=== PATIENT | male | born 1935 | race Caucasian/White ===

== ENCOUNTER 2016-07-17 04:37 | Inpatient (IN) | payer MEDICARE, OTHER ==
[2016-07-17 05:05] LABS: Hematocrit 41 % (42-52); Mean Corpuscular HGB Conc 32 g/dl (31-36); Mean Corpuscular Hemoglobin 28 pg (27-31); Mean Corpuscular Volume 87 fL (80-94); Mean Platelet Volume 9 um3 (7.4-10.4); Red Blood Count 4.67 10^6/ul (4.0-5.4); Red Cell Distribution Width 16 % (10.5-15); White Blood Count 9.4 10^3/ul (3.5-10.8)
--- NOTE | 2016-07-17 05:17 | HP ---
H&P (Free Text) History and Physical: PCP: Physician practicing with JOSE J Pablo MD Date/Time of Evaluation: 07/17/2016 0520 CC: bright red blood per rectum HPI: Mr Yuen is a 80YO male HX CAD/4vCABG in 03/2016 who awoke this AM, got up to use the restroom and had large bright red blood x2 prompting him to present for evaluation. He denies associated symptoms and alleviating or exacerbating factors; specifically no chest pain, SOB, abdominal pain, dizziness , or palpitations.He has never had a colonoscopy. Vitals are stable. Labs are remarkable only for a BUN of 29. PMedHx CAD/4vCABG DM2 HTN HLD bladder CA treated with cystoscopic resection HX >40PYHX tobacco Allergies No Known Allergies Allergy (Verified 07/17/16 04:47) Ambulatory Orders Aspirin [Aspirin Adult Low Dose] 81 mg PO 07/17/16 Atorvastatin* [Lipitor*] 40 mg PO QPM 07/17/16 Clopidogrel TAB* [Plavix TAB*] 75 mg PO DAILY 07/17/16 Finasteride TAB* [Proscar TAB*] 5 mg PO DAILY 07/17/16 Metoprolol & Hydrochlorothiazi [Metoprolol Succinate ER/H 25-12.5 mg] 0.5 tab PO 07/17/16 Sitagliptin Phosphate [Januvia] 100 mg PO 07/17/16 Tamsulosin HCl [Flomax] 0.4 mg PO DAILY 07/17/16 PSurgHx 4vCABG SocHx: quit smoking ~15years ago, no alcohol or recreational drugs; , lives alone; 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; DNR/I code status FamHx: positive for HTN, HLD, CAD, DM ROS: as above, otherwise reviewed and all were negative Constitutional: NAD, normally developed, overweight white male vitals: Vital Signs Temp 36.6 C 07/17/16 04:40 Pulse 85 07/17/16 04:40 Resp 16 07/17/16 04:40 BP 122/72 07/17/16 04:40 Pulse Ox 98 07/17/16 04:40 Intake & Output 07/16/16 07/16/16 07/17/16 11:59 23:59 11:59 Weight 84.822 kg HEENM: atraumatic; sclera/conjunctiva: non-icteric/clear; hearing: clinically intact; oropharynx: clear, mucosa moist Neck: soft tissue: non-tender; thyroid: normal Pulmonary: clear to auscultation bilaterally, good aeration, no accessory muscle use CV: RR/RR, normal S1S2, no carotid bruit, no femoral bruit, no abdominal bruit, no jugular venous distention, 2+ B DP/PT, no edema Abdominal: soft, non-distended, non-tender, no rebound/guarding/rigidity, normoactive bowel sounds, no hepatosplenomegaly or masses, no costovertebral angle tenderness Musculoskeletal: general: grossly intact; gait: stable Integumental: normal appearance and texture Psychiatric orientation: AA&O to PPS affect: calm mood: cooperative eye contact: good content: reliable responses: timely insight: good Testing: Lab Results 07/17/16 07/17/16 07/17/16 Range/Units 04:50 04:50 04:50 WBC 9.4 (3.5-10.8) 10^3/ul RBC 4.67 (4.0-5.4) 10^6/ul Hgb 13.0 L (14.0-18.0) g/dl Hct 41 L (42-52) % MCV 87 (80-94) fL MCH 28 (27-31) pg MCHC 32 (31-36) g/dl RDW 16 H (10.5-15) % Plt Count 194 (150-450) 10^3/ul MPV 9 (7.4-10.4) um3 INR (Anticoag Therapy) 1.00 (0.89-1.11) APTT 30.9 (26.0-36.3) seconds Sodium 137 (133-145) mmol/L Potassium 3.8 (3.5-5.0) mmol/L Chloride 104 (101-111) mmol/L Carbon Dioxide 28 (22-32) mmol/L Anion Gap 5 (2-11) mmol/L BUN 29 H (6-24) mg/dL Creatinine 1.03 (0.67-1.17) mg/dL Est GFR ( Amer) 89.6 (>60) Est GFR (Non-Af Amer) 69.7 (>60) BUN/Creatinine Ratio 28.2 H (8-20) Glucose 148 H (70-100) mg/dL Lactic Acid (0.5-2.0) mmol/L Calcium 9.2 (8.6-10.3) mg/dL Total Bilirubin 0.50 (0.2-1.0) mg/dL AST 15 (13-39) U/L ALT 16 (7-52) U/L Alkaline Phosphatase 50 (34-104) U/L Troponin I 0.01 (<0.04) ng/mL Total Protein 6.7 (6.4-8.9) g/dL Albumin 3.7 (3.2-5.2) g/dL Globulin 3.0 (2-4) g/dL Albumin/Globulin Ratio 1.2 (1-3) Lipase 31 (11.0-82.0) U/L 07/17/16 Range/Units 04:50 WBC (3.5-10.8) 10^3/ul RBC (4.0-5.4) 10^6/ul Hgb (14.0-18.0) g/dl Hct (42-52) % MCV (80-94) fL MCH (27-31) pg MCHC (31-36) g/dl RDW (10.5-15) % Plt Count (150-450) 10^3/ul MPV (7.4-10.4) um3 INR (Anticoag Therapy) (0.89-1.11) APTT (26.0-36.3) seconds Sodium (133-145) mmol/L Potassium (3.5-5.0) mmol/L Chloride (101-111) mmol/L Carbon Dioxide (22-32) mmol/L Anion Gap (2-11) mmol/L BUN (6-24) mg/dL Creatinine (0.67-1.17) mg/dL Est GFR ( Amer) (>60) Est GFR (Non-Af Amer) (>60) BUN/Creatinine Ratio (8-20) Glucose (70-100) mg/dL Lactic Acid 1.1 (0.5-2.0) mmol/L Calcium (8.6-10.3) mg/dL Total Bilirubin (0.2-1.0) mg/dL AST (13-39) U/L ALT (7-52) U/L Alkaline Phosphatase (34-104) U/L Troponin I (<0.04) ng/mL Total Protein (6.4-8.9) g/dL Albumin (3.2-5.2) g/dL Globulin (2-4) g/dL Albumin/Globulin Ratio (1-3) Lipase (11.0-82.0) U/L ECG, personally reviewed: NSR rate rat 74, T-wave inversions V5-6, II, III, & AVF Impression: 80M presenting with painless lower GI hemorrhage, suspect diverticular DIAGNOSIS & PLAN Primary painless lower GI hemorrhage, suspect diverticular : IVFs : type & screen : serial H&H : Ruddy Hinton MD apprised of the case, will evaluate in AM : supplemental oxygen : IV pantoprazole : supportive care Secondary CAD/4vCAVG : hold aspirin & plavix DM2 : basal/correctional protocol : hold sitagliptin : check A1c HTN : hold metoprolol & HCTZ in setting of acute hemorrhage, monitor HLD : continue atorvastatin BPH : continue finasteride & tamsulosin Admission Rational: inpatient for lower GI bleed not anticipated to be adequately evaluated w/i 48H to allow for D/C DVTp: SCDs, no anticoagulation in acute hemorrhage Code Status: full HCP: daughter, Jena Moreno [phone]
[2016-07-17 05:19] LABS: Albumin 3.7 g/dL (3.2-5.2); BUN/Creatinine Ratio 28.2 (8-20); Calcium 9.2 mg/dL (8.6-10.3); EGFR African American 89.6 (>60); EGFR Non-African American 69.7 (>60); Potassium 3.8 mmol/L (3.5-5.0); Total Bilirubin 0.5 mg/dL (0.2-1.0); Total Protein 6.7 g/dL (6.4-8.9)
[2016-07-17 05:21] LABS: Troponin I 0.01 ng/mL (<0.04)
--- NOTE | 2016-07-17 05:28 | ED ---
GI/ HPI - HPI Summary HPI Summary: Patient presents for evaluation of new onset rectal bleeding. Mcrae well before bed, but woke to make a bm and had large amounts of blood from the rectum. This recurred twice and is a new experience for the patient. Denies systemic symptoms, abdominal pain, trauma. Feels well otherwise. - History of Current Complaint Chief Complaint: EDGIBleed Time Seen by Provider: 07/17/16 04:38 Stated Complaint: BLOODY STOOL Hx Obtained From: Patient Onset/Duration: Started Hours Ago Timing: Intermittent Vaginal Bleeding Description: Dark Red Pain Intensity: 0 - Allergy/Home Medications Allergies/Adverse Reactions: Allergies Allergy/AdvReac Type Severity Reaction Status Date / Time No Known Allergies Allergy Verified 07/17/16 04:47 PMH/Surg Hx/FS Hx/Imm Hx - Immunization History Date of Tetanus Vaccine: unk Date of Influenza Vaccine: unk Infectious Disease History: No Infectious Disease History: Denies: Traveled Outside the [place] in Last 30 Days - Social History Alcohol Use: None Substance Use Type: Reports: None Smoking Status (MU): Former Smoker Review of Systems Cardiovascular: Negative Negative: Abdominal Pain All Other Systems Reviewed And Are Negative: Yes Physical Exam Triage Information Reviewed: Yes Vital Signs On Initial Exam: Initial Vitals Temp Pulse Resp BP Pulse Ox 97.9 F 85 16 122/72 98 07/17/16 04:40 07/17/16 04:40 07/17/16 04:40 07/17/16 04:40 07/17/16 04:40 Vital Signs Reviewed: Yes Appearance: Positive: Well-Appearing, No Pain Distress, Well-Nourished Skin: Positive: Warm, Skin Color Reflects Adequate Perfusion, Dry Eyes: Positive: Normal, EOMI, GHAZALA, Conjunctiva Clear ENT: Positive: Normal ENT inspection, Hearing grossly normal Respiratory/Lung Sounds: Positive: Clear to Auscultation, Breath Sounds Present Cardiovascular: Positive: Normal, RRR, Pulses are Symmetrical in both Upper and Lower Extremities Abdomen Description: Positive: Nontender, No Organomegaly, Soft, Other: - Gross blood on rectal exam Bowel Sounds: Positive: Present Male Genital Exam: Positive: normal genitalia. Negative: epididymal tenderness Musculoskeletal: Positive: Normal, Strength/ROM Intact Neurological: Positive: Normal, Sensory/Motor Intact, Alert, Oriented to Person Place, Time, CN Intact II-III, Reflexes Intact, NV Bundle Intact Distally, Normal Gait - Lyman Coma Scale Coma Scale Total: 15 Diagnostics - Vital Signs Vital Signs Temp Pulse Resp BP Pulse Ox 07/17/16 04:40 97.9 F 85 16 122/72 98 - Laboratory Lab Results: Lab Results 07/17/16 07/17/16 07/17/16 Range/Units 04:50 04:50 04:50 WBC 9.4 (3.5-10.8) 10^3/ul RBC 4.67 (4.0-5.4) 10^6/ul Hgb 13.0 L (14.0-18.0) g/dl Hct 41 L (42-52) % MCV 87 (80-94) fL MCH 28 (27-31) pg MCHC 32 (31-36) g/dl RDW 16 H (10.5-15) % Plt Count 194 (150-450) 10^3/ul MPV 9 (7.4-10.4) um3 INR (Anticoag Therapy) 1.00 (0.89-1.11) APTT 30.9 (26.0-36.3) seconds Sodium 137 (133-145) mmol/L Potassium 3.8 (3.5-5.0) mmol/L Chloride 104 (101-111) mmol/L Carbon Dioxide 28 (22-32) mmol/L Anion Gap 5 (2-11) mmol/L BUN 29 H (6-24) mg/dL Creatinine 1.03 (0.67-1.17) mg/dL Est GFR ( Amer) 89.6 (>60) Est GFR (Non-Af Amer) 69.7 (>60) BUN/Creatinine Ratio 28.2 H (8-20) Glucose 148 H (70-100) mg/dL Lactic Acid (0.5-2.0) mmol/L Calcium 9.2 (8.6-10.3) mg/dL Total Bilirubin 0.50 (0.2-1.0) mg/dL AST 15 (13-39) U/L ALT 16 (7-52) U/L Alkaline Phosphatase 50 (34-104) U/L Troponin I 0.01 (<0.04) ng/mL Total Protein 6.7 (6.4-8.9) g/dL Albumin 3.7 (3.2-5.2) g/dL Globulin 3.0 (2-4) g/dL Albumin/Globulin Ratio 1.2 (1-3) Lipase 31 (11.0-82.0) U/L 07/17/16 Range/Units 04:50 WBC (3.5-10.8) 10^3/ul RBC (4.0-5.4) 10^6/ul Hgb (14.0-18.0) g/dl Hct (42-52) % MCV (80-94) fL MCH (27-31) pg MCHC (31-36) g/dl RDW (10.5-15) % Plt Count (150-450) 10^3/ul MPV (7.4-10.4) um3 INR (Anticoag Therapy) (0.89-1.11) APTT (26.0-36.3) seconds Sodium (133-145) mmol/L Potassium (3.5-5.0) mmol/L Chloride (101-111) mmol/L Carbon Dioxide (22-32) mmol/L Anion Gap (2-11) mmol/L BUN (6-24) mg/dL Creatinine (0.67-1.17) mg/dL Est GFR ( Amer) (>60) Est GFR (Non-Af Amer) (>60) BUN/Creatinine Ratio (8-20) Glucose (70-100) mg/dL Lactic Acid 1.1 (0.5-2.0) mmol/L Calcium (8.6-10.3) mg/dL Total Bilirubin (0.2-1.0) mg/dL AST (13-39) U/L ALT (7-52) U/L Alkaline Phosphatase (34-104) U/L Troponin I (<0.04) ng/mL Total Protein (6.4-8.9) g/dL Albumin (3.2-5.2) g/dL Globulin (2-4) g/dL Albumin/Globulin Ratio (1-3) Lipase (11.0-82.0) U/L Result Diagrams: 07/17/16 04:50 07/17/16 04:50 Lab Statement: Any lab studies that have been ordered have been reviewed, and results considered in the medical decision making process. GIGU Course/Dx - Diagnoses Differential Diagnoses - Male: Other - Primary concern for LGIB from diverticulosis or avm. Needs admission for further evaluation, but not currently symptomatic. GI coverage is available today. Provider Diagnoses: Lower GI bleed - Physician Notifications Discussed Care Of Patient With: Dr. Starr to admit. Discharge - Discharge Plan Condition: Stable Disposition: ADMITTED TO [facility]
[2016-07-17] MEDS ORDERED: Albuterol 2.5 MG/3 ML NEB.SOL* (0.083%) INH PRN (06:13)
[2016-07-17] MEDS ORDERED: Acetaminophen TAB* 325 MG PO PRN (06:13)
[2016-07-17] MEDS ORDERED: Melatonin (NF) 3 MG TAB PO PRN (06:13)
[2016-07-17] MEDS ORDERED: Ondansetron INJ* 2 MG/ML VIAL IV PRN (06:14)
[2016-07-17] MEDS ORDERED: PROCHLORPERAZINE INJ 5 MG/ML 2 ML VIAL IV PRN (06:14)
[2016-07-17] MEDS ORDERED: NS 0.9% 1000 ML* 1,000 ML IV SCH (06:15)
[2016-07-17] MEDS ORDERED: NS 0.9% 1000 ML* 1,000 ML IV ONE (06:15)
[2016-07-17] MEDS: Albuterol 2.5 MG/3 ML NEB.SOL* (0.083%) INH SCH ×3 (08:35→21:01)
[2016-07-17] MEDS: Mometasone/Formoter 200/5 MDI INH SCH ×2 (08:36→21:09)
[2016-07-17] MEDS: Tiotropium CAP.INH* CAP.INH/18 MCG (USE ORDER SET !) INH SCH (08:36)
[2016-07-17] MEDS: Insulin LISPRO* 1 UNITS UNIT SUBCUT SCH ×5 (08:37→23:51)
[2016-07-17] MEDS: Pantoprazole IV* 40 MG IV SCH (08:42)
[2016-07-17] MEDS: Finasteride TAB* 5 MG PO SCH (08:43)
[2016-07-17] MEDS: Tamsulosin CAP* 0.4 MG PO SCH (08:43)
[2016-07-17] MEDS ORDERED: Spiriva Inhaler DEVICE* 1 EACH DEVICE INH ONE (09:00)
[2016-07-17 10:56] LABS: Hematocrit 37 % (42-52); Hemoglobin 11.9 g/dl (14.0-18.0)
[2016-07-17] MEDS ORDERED: PEG 3000 GI LAVAGE* 1 GALLON PO NR (13:00)
--- NOTE | 2016-07-17 13:24 | PN ---
Subjective Date of Service: 07/17/16 Interval History: Patient had another bloody BM around lunchtime. No abdo pain, no dizziness. Recently on plavix due to CABG. BP in 90s systolic range earlier, had fluid bolus. Family History: Unchanged from Admission Social History: Unchanged from Admission Past Medical History: Unchanged from Admission Objective Active Medications: Acetaminophen (Tylenol Tab*) 650 mg PO Q6H PRN PRN Reason: FEVER/PAIN Albuterol (Ventolin 2.5 Mg/3 Ml Neb.Christa*) 2.5 mg INH Q2H PRN PRN Reason: SOB/WHEEZING Albuterol (Ventolin 2.5 Mg/3 Ml Neb.Christa*) 2.5 mg INH [id number] [facility] Last Admin: 07/17/16 08:35 Dose: 2.5 mg Atorvastatin Calcium (Lipitor*) 40 mg PO QPM MARQUISE Finasteride (Proscar Tab*) 5 mg PO DAILY [facility] Last Admin: 07/17/16 08:43 Dose: 5 mg Sodium Chloride (Ns 0.9% 1000 Ml*) 1,000 mls @ 125 mls/hr IV PER RATE [facility] Last Admin: 07/17/16 09:47 Dose: 125 mls/hr Insulin Glargine (Lantus(*)) 17 units SUBCUT 2100 [facility] Stop: 07/18/16 20:00 Insulin Human Lispro (Humalog*) 0 units SUBCUT Q4H [facility] PRN Reason: Protocol Last Admin: 07/17/16 11:54 Dose: 1 units Melatonin (Melatonin (Nf)) 3 mg PO BEDTIME PRN; Protocol PRN Reason: Sleep Mometasone Furoate/Formoterol Fumar (Dulera 200/5 Mdi*) 2 puff INH BID [facility] Last Admin: 07/17/16 08:36 Dose: 2 puff Ondansetron HCl (Zofran Inj*) 4 mg IV Q6H PRN PRN Reason: NAUSEA Pantoprazole Sodium (Protonix Iv*) 40 mg IV 0730 [facility] Last Admin: 07/17/16 08:42 Dose: 40 mg Polyethylene Glycol/Electrolytes (Golytely*) 4,000 ml PO ONCE NR Stop: 07/17/16 23:59 Prochlorperazine Edisylate (Compazine Inj*) 10 mg IV Q6H PRN PRN Reason: NAUSEA Tamsulosin HCl (Flomax Cap*) 0.4 mg PO DAILY [facility] Last Admin: 07/17/16 08:43 Dose: 0.4 mg Tiotropium [place] (Spiriva Cap.Inh*) 1 cap INH DAILY [facility] Last Admin: 07/17/16 08:36 Dose: 1 cap.inh Vital Signs 07/17/16 07/17/16 07/17/16 07:30 08:00 08:21 Temperature 36.4 C Pulse Rate 70 67 59 Respiratory 14 Rate Blood Pressure 92/43 98/51 (mmHg) O2 Sat by Pulse 97 98 100 Oximetry 07/17/16 07/17/16 07/17/16 08:38 10:15 10:59 Temperature Pulse Rate 58 Respiratory 14 14 Rate Blood Pressure 98/56 (mmHg) O2 Sat by Pulse 98 Oximetry 07/17/16 11:44 Temperature 36.9 C Pulse Rate 58 Respiratory 16 Rate Blood Pressure 102/51 (mmHg) O2 Sat by Pulse 100 Oximetry Oxygen Devices in Use Now: None Eyes: No Scleral Icterus Ears/Nose/Mouth/Throat: Clear Oropharnyx Neck: No Thyroid Enlargement, Masses Respiratory: Clear to Auscultation Cardiovascular: NL Sounds; No Murmurs; No JVD, RRR Abdominal: NL Sounds; No Tenderness; No Distention, No Hepatosplenomegaly Lymphatic: No Cervical Adenopathy Neurological: Alert and Oriented x 3 Lines/Tubes/Other Access: Clean, Dry and Intact Peripheral IV Nutrition: Taking PO's Result Diagrams: 07/17/16 10:47 07/17/16 04:50 Additional Lab and Data: Laboratory Tests 07/17/16 07/17/16 04:50 10:47 Hgb 13.0 L 11.9 L Hct 41 L 37 L Assess/Plan/Problems-Billing Assessment: 80 yo man with recent CABG, admitted with apparent LGI bleed, suspect diverticular source - Patient Problems (1) Lower gastrointestinal hemorrhage Current Visit: Yes Status: Acute Priority: High Code(s): K92.2 - GASTROINTESTINAL HEMORRHAGE, UNSPECIFIED SNOMED Code(s): 84510687 Comment: GI consult appreciated. Dr. Hinton to perform colonoscopy tomorrow. Will recheck H/H at 4pm, and follow. BP running low, atenolol held, will follow closely.
[2016-07-17 16:16] LABS: Hematocrit 38 % (42-52); Hemoglobin 12.2 g/dl (14.0-18.0)
[2016-07-17] MEDS ORDERED: Magnesium Sulfate 2 GM IV* 2 GM/50 ML BAG IVPB ONE (18:03)
--- NOTE | 2016-07-17 18:07 | PN ---
Progress Note - Progress Note Note: Event note: Patient had 20-beat run VT. Had shorter run earlier. Fusion beats present. Will reassess K, Mg, trop and supplement IV Discussed case with Dr. Goncalves. Will look for echo, EF in outpatient records. May need IV amiodarone.
[2016-07-17] MEDS: KCL 10 MEQ/50 ML IVPREMIX* 10 MEQ/50 ML BAG IV SCH ×2 (18:32→20:42)
[2016-07-17] MEDS: Atorvastatin* 40 MG TAB PO SCH (18:32)
[2016-07-17] MEDS: NS 0.9% 1000 ML* 1,000 ML IV SCH (18:34)
--- NOTE | 2016-07-17 18:46 | CONS ---
CONSULTATION REPORT: DATE OF CONSULT: 07/17/16 REASON FOR CONSULT: Painless hematochezia. HISTORY: Mr. Yuen is a 80-year-old gentleman with a history of diabetes, coronary artery disease, status post a 4-vessel CABG in March 2016, who awoke this morning at 3 am with painless bloody stools. He had a normal bowel movement yesterday around noon. At 3 in the morning, he awoke and had a fairly high volume of bloody stools. He states that it was bright red blood without clots or melena. He had no accompanying abdominal pain. He has had subsequently two more bloody stools of lower volume. He presented to the emergency room where he was hemodynamically stable. His initial hemoglobin was 13. He denies any prior history of GI bleeding. He has never had a colonoscopy. PAST MEDICAL HISTORY: Includes coronary artery disease, status post 4-vessel CABG in March 2016 at which time he was placed on Plavix. Type 2 diabetes, hypertension. He has a remote history of bladder cancer about 20 years ago, which was treated with cystoscopic resection, no radiation. MEDICATIONS: His ambulatory medicines were: 1. Baby aspirin. 2. Lipitor. 3. Plavix. 4. Proscar. 5. Metoprolol. 6. Hydrochlorothiazide. 7. Januvia. 8. Flomax. FAMILY HISTORY: Negative for colorectal cancer. REVIEW OF SYSTEMS: He denies any abdominal pain, melena, nausea, vomiting, fevers or weight loss. His appetite has been good. He reports having very good energy ever since his bypass surgery. PHYSICAL EXAM: He is a pleasant gentleman, appearing very comfortable and in no acute distress. Blood pressure is 98/56. Heart rate is 58 and regular. He is not pale. He is anicteric. Lungs are clear. Cardiac exam reveals a regular rhythm without murmur. Abdomen is obese and soft without tenderness or organomegaly. Bowel sounds are present. On rectal exam, there is no perianal lesion or palpable lesion and there is fresh blood on the glove. DIAGNOSTIC STUDIES/LAB DATA: Again, data includes a hemoglobin of 13 at 5 this morning, repeated at 11.9 at 11 this morning. Platelet count of 194,000. INR of 1. BUN of 29, creatinine of 1.03. Normal liver panel. IMPRESSION: A 80-year-old gentleman with a history of bypass surgery about 5 months ago, on Plavix, presenting with painless hematochezia. He does seem to be hemodynamically stable with only a modest drop in his hemoglobin. This does seem to be a lower GI bleed. He has never had a colonoscopy. I discussed with him possible etiologies including diverticular disease, less likely polyps, neoplasm, AVM. We discussed the standard approach would be a colonoscopy after a bowel prep. We discussed that procedure, its possible role in therapeutic interventions and he agrees. We will plan on prepping him today and performing that study tomorrow. Plavix is already being held at this point. CC: Terry Pablo MD* [id number]/CPS #: [id number] ZAIRA
[2016-07-17 18:59] LABS: Hematocrit 36 % (42-52); Hemoglobin 11.4 g/dl (14.0-18.0)
[2016-07-17 19:02] LABS: Comments Flag Yes
[2016-07-17 19:15] LABS: BUN/Creatinine Ratio 19.5 (8-20); Calcium 8.6 mg/dL (8.6-10.3); EGFR African American 108.9 (>60); EGFR Non-African American 84.6 (>60)
[2016-07-17] MEDS ORDERED: Metoprolol Tartrate TAB* 25 MG PO SCH (19:30)
[2016-07-17] MEDS: Metoprolol Tartrate TAB* 25 MG PO SCH (20:54)
[2016-07-17] MEDS ORDERED: Insulin GLARGINE(*) 1 UNITS UNIT SUBCUT SCH (21:00)
[2016-07-18] MEDS: NS 0.9% 1000 ML* 1,000 ML IV SCH (02:06)
[2016-07-18] MEDS: Albuterol 2.5 MG/3 ML NEB.SOL* (0.083%) INH SCH ×4 (02:06→20:33)
[2016-07-18] MEDS: Insulin LISPRO* 1 UNITS UNIT SUBCUT SCH ×5 (04:05→20:39)
[2016-07-18 06:29] LABS: BUN/Creatinine Ratio 15.6 (8-20); Calcium 8.2 mg/dL (8.6-10.3); EGFR African American 125.3 (>60); EGFR Non-African American 97.5 (>60); Potassium 3.9 mmol/L (3.5-5.0)
[2016-07-18 06:34] LABS: Hematocrit 30 % (42-52); Hemoglobin 9.8 g/dl (14.0-18.0); Mean Corpuscular HGB Conc 32 g/dl (31-36); Mean Corpuscular Hemoglobin 28 pg (27-31); Mean Corpuscular Volume 86 fL (80-94); Mean Platelet Volume 9 um3 (7.4-10.4); Red Blood Count 3.51 10^6/ul (4.0-5.4); Red Cell Distribution Width 16 % (10.5-15); White Blood Count 7.2 10^3/ul (3.5-10.8)
[2016-07-18] MEDS: Mometasone/Formoter 200/5 MDI INH SCH ×2 (07:50→20:36)
[2016-07-18] MEDS: Tiotropium CAP.INH* CAP.INH/18 MCG (USE ORDER SET !) INH SCH (07:50)
[2016-07-18] MEDS: Finasteride TAB* 5 MG PO SCH (08:22)
[2016-07-18] MEDS: Tamsulosin CAP* 0.4 MG PO SCH (08:22)
[2016-07-18] MEDS: Metoprolol Tartrate TAB* 25 MG PO SCH ×2 (08:22→20:39)
[2016-07-18] MEDS: Pantoprazole IV* 40 MG IV SCH (08:25)
--- NOTE | 2016-07-18 11:04 | ECHO ---
Patient: AGNIESZKA CHARLES [facility] Rec#: [id number] : 1935 Date: 07/18/2016 Age: 80y Height: 170.2 cm / 67.0 in Weight: 83.5 kg / 184.0 lbs Sex: M BSA: 2 Room#: 452 Admit Date#: 07/17/2016 Type: Inpatient Referring: Terry Pablo MD Reading: Antione Francis MD Firer Watertender: Glenda Leonard RN RDCS CC: Grisel AOLNSO,Samason Transthoracic Echocardiogram Indication: Ventricular Tachycardia, CAD BP: 102/55 HR: 88 Rhythm: NSR with PACs Findings History: CAD with CABG 03/2016, DM, HTN, former smoker Technical Comments: The study is technically limited due to the patient's smoking history. Completed at 0930. Left Ventricle: The left ventricular chamber size is normal. Mild concentric left ventricular hypertrophy is observed. Mild global hypokinesis of the left ventricle is observed. Left ventricular systolic function is at the lower limits of normal. The estimated ejection fraction is 50-55%. Ventricular septal wall motion has a post-operative appearance. There is no consistent Doppler evidence of clinically significant diastolic dysfunction. Left Atrium: The left atrial chamber size is normal. Right Ventricle: The right ventricular chamber size and systolic function are within normal limits. Right Atrium: The right atrial cavity size is normal. Aortic Valve: The aortic valve leaflets are mildly thickened. There is a trace of aortic regurgitation. There is no evidence of aortic stenosis. Mitral Valve: There is mitral annular calcification. The mitral valve leaflets are mildly thickened. There is trace to mild mitral regurgitation. There is no evidence of mitral stenosis. Tricuspid Valve: The tricuspid valve leaflets are normal. There is trace to mild tricuspid regurgitation. There is evidence of mild to moderate pulmonary hypertension. Pulmonic Valve: The pulmonic valve appears normal. There is mild pulmonic regurgitation. There is no pulmonic stenosis. Pericardium: There is no significant pericardial effusion. A pericardial fat pad is visualized. Aorta: There is mild dilatation of the ascending aorta. There is no dilatation of the aortic arch. There is mild dilatation of the aortic root. Pulmonary Artery: The main pulmonary artery is not well visualized. Venous: The venous system is not well visualized. The inferior vena cava is not visualized. Conclusions Mild concentric left ventricular hypertrophy is observed. Mild global hypokinesis of the left ventricle is observed. Left ventricular systolic function is at the lower limits of normal. The estimated ejection fraction is 50-55%. The right ventricular chamber size and systolic function are within normal limits. There is a trace of aortic regurgitation. The mitral valve leaflets are mildly thickened. There is trace to mild mitral regurgitation. There is trace to mild tricuspid regurgitation. There is evidence of mild to moderate pulmonary hypertension. There is no significant pericardial effusion. Measurements Name Value Normal Range RVDdMajor (2D) 3.7 cm (2.2 - 4.4) RAd ISD 4CH 4.3 cm (3.4 - 4.9) RA (A4C)W 3 cm (2.9 - 4.6) IVSd (2D) 1.2 cm (0.6 - 1) LVPWd (2D) 1.2 cm (0.6 - 1) LVIDd (2D) 4.4 cm (3.6 - 5.4) LVIDs (2D) 3.8 cm - LV FS (2D) 14 % (25 - 45) Aortic Annulus 2.1 cm (1.4 - 2.6) Ao root diameter (2D) 3.7 cm (2.1 - 3.5) Ascending Ao 3.5 cm (2.1 - 3.4) Aortic arch 2.7 cm (1.8 - 3.4) LA dimension (AP) 2D 3.5 cm (2.3 - 3.8) LAd ISD 4CH 4.7 cm (2.9 - 5.3) LA ISD 4CH W 4.3 cm (2.5 - 4.5) Name Value Normal Range LA ESV SP 4CH (A/L) 48 ml - LA ESV SP 2CH (A/L) 63 ml - LA ESV BP (A/L) 58 ml - LA ESV BP (A/L) index 30 ml/m2 - LA ESV SP 4CH (MOD) 45 ml - LA ESV SP 2CH (MOD) 62 ml - Name Value Normal Range MV E-wave Vmax 0.93 m/sec - MV deceleration time 201 msec - MV A-wave Vmax 1.1 m/sec - MV E:A ratio 0.8 ratio - LV septal e' Vmax 0.05 m/sec - LV lateral e' Vmax 0.11 m/sec - LV E:e' septal ratio 18.6 ratio - LV E:e' lateral ratio 8.5 ratio - Name Value Normal Range AV Vmax 1.4 m/sec - LVOT Vmax 1.1 m/sec - EDWARD Vmax 0.69 m/sec - Name Value Normal Range TR Vmax 3 m/sec - TR peak gradient 36 mmHg - RAP 8 mmHg - RVSP 44 mmHg - Name Value Normal Range PV Vmax 1 m/sec -
[2016-07-18] MEDS ORDERED: NS 0.9% 1000 ML* 1,000 ML IV SCH (14:10)
--- NOTE | 2016-07-18 14:22 | PN ---
Subjective Date of Service: 07/18/16 Interval History: Only small amount of rectal bleeding today. No pain. No cough, chest pain, SOB. No new c/o. Family History: Unchanged from Admission Social History: Unchanged from Admission Past Medical History: Unchanged from Admission Objective Active Medications: Acetaminophen (Tylenol Tab*) 650 mg PO Q6H PRN PRN Reason: FEVER/PAIN Albuterol (Ventolin 2.5 Mg/3 Ml Neb.Christa*) 2.5 mg INH Q2H PRN PRN Reason: SOB/WHEEZING Albuterol (Ventolin 2.5 Mg/3 Ml Neb.Christa*) 2.5 mg INH [id number] AWAKE [facility] Last Admin: 07/18/16 12:21 Dose: 2.5 mg Atorvastatin Calcium (Lipitor*) 40 mg PO QPM [facility] Last Admin: 07/17/16 18:32 Dose: 40 mg Finasteride (Proscar Tab*) 5 mg PO DAILY [facility] Last Admin: 07/18/16 08:22 Dose: Not Given Sodium Chloride (Ns 0.9% 1000 Ml*) 1,000 mls @ 50 mls/hr IV PER RATE [facility] Insulin Human Lispro (Humalog*) 0 units SUBCUT Q4H [facility] PRN Reason: Protocol Last Admin: 07/18/16 12:48 Dose: Not Given Metoprolol Tartrate (Lopressor Tab*) 25 mg PO Q12HR [facility] Mometasone Furoate/Formoterol Fumar (Dulera 200/5 Mdi*) 2 puff INH BID [facility] Last Admin: 07/18/16 07:50 Dose: 2 puff Ondansetron HCl (Zofran Inj*) 4 mg IV Q6H PRN PRN Reason: NAUSEA Prochlorperazine Edisylate (Compazine Inj*) 10 mg IV Q6H PRN PRN Reason: NAUSEA Tamsulosin HCl (Flomax Cap*) 0.4 mg PO DAILY [facility] Last Admin: 07/18/16 08:22 Dose: Not Given Tiotropium [place] (Spiriva Cap.Inh*) 1 cap INH DAILY [facility] Last Admin: 07/18/16 07:50 Dose: 1 cap.inh Vital Signs 07/17/16 07/17/16 07/17/16 15:28 15:39 16:11 Temperature 97.3 F Pulse Rate 73 Respiratory 16 Rate Blood Pressure 87/64 92/64 (mmHg) O2 Sat by Pulse 100 100 Oximetry 07/17/16 07/17/16 07/17/16 17:54 19:31 20:00 Temperature Pulse Rate 69 Respiratory 16 20 Rate Blood Pressure 88/54 81/51 (mmHg) O2 Sat by Pulse 100 Oximetry 07/17/16 07/17/16 07/17/16 20:03 20:56 21:09 Temperature Pulse Rate 68 Respiratory 20 Rate Blood Pressure 96/50 105/54 (mmHg) O2 Sat by Pulse 98 Oximetry 07/17/16 07/17/16 07/18/16 22:09 23:26 02:06 Temperature 97.7 F Pulse Rate 83 Respiratory 20 Rate Blood Pressure 95/54 92/49 (mmHg) O2 Sat by Pulse 96 98 Oximetry 07/18/16 07/18/16 07/18/16 03:15 07:36 07:47 Temperature 97.9 F 98.8 F Pulse Rate 68 59 Respiratory 20 18 16 Rate Blood Pressure 102/55 97/51 (mmHg) O2 Sat by Pulse 98 98 Oximetry 07/18/16 07/18/16 07/18/16 07:54 10:14 11:40 Temperature 98.1 F Pulse Rate 60 95 83 Respiratory 18 16 Rate Blood Pressure 100/60 100/53 (mmHg) O2 Sat by Pulse 96 96 Oximetry 07/18/16 12:22 Temperature Pulse Rate 79 Respiratory 16 Rate Blood Pressure (mmHg) O2 Sat by Pulse 99 Oximetry Oxygen Devices in Use Now: None Appearance: Alert, supine in bed. In good spirits. Looks comfortable. Eyes: No Scleral Icterus Ears/Nose/Mouth/Throat: Clear Oropharnyx, Mucous Membranes Moist Neck: NL Appearance and Movements; NL JVP, No Thyroid Enlargement, Masses Respiratory: Symmetrical Chest Expansion and Respiratory Effort, Clear to Auscultation, Clear to Percussion Cardiovascular: NL Sounds; No Murmurs; No JVD, RRR, No Edema, - Abdominal: NL Sounds; No Tenderness; No Distention, No Hepatosplenomegaly, - Extremities: No Edema, No Clubbing, Cyanosis, - Skin: No Rash or Ulcers, No Nodules or Sclerosis, - Neurological: Alert and Oriented x 3, NL Sensation Result Diagrams: 07/18/16 16:15 07/18/16 06:05 Additional Lab and Data: Laboratory Tests 07/17/16 07/17/16 04:50 10:47 Hgb 13.0 L 11.9 L Hct 41 L 37 L Assess/Plan/Problems-Billing Assessment: 80 yo man with recent CABG, admitted with apparent LGI bleed, suspect diverticular source - Patient Problems (1) Lower gastrointestinal hemorrhage Current Visit: Yes Status: Acute Priority: High Code(s): K92.2 - GASTROINTESTINAL HEMORRHAGE, UNSPECIFIED SNOMED Code(s): 98944387 Comment: GI consult appreciated. Dr. Stewart did colonoscopy 07/18, showed diverticulosis with a small clot over one diverticulum. Will recheck H/H 07/18 at 4pm. If stable, consider discharge 07/19. (2) CAD (coronary artery disease) Current Visit: Yes Status: Acute Code(s): I25.10 - ATHSCL HEART DISEASE OF [place] CORONARY ARTERY W/O ANG PCTRS SNOMED Code(s): 01364213 Comment: Records requested from [facility]. Continue BB, statin, ASA. Resume clopidogrel if no active bleeding seen and dx is diverticular bleeding. (3) LBBB (left bundle branch block) Current Visit: Yes Status: Acute Code(s): I44.7 - LEFT BUNDLE-BRANCH BLOCK, UNSPECIFIED SNOMED Code(s): 64191583 Comment: Rate related. Discussed with Dr. Francis. Increase metoprolol to 25 mg bid.
[2016-07-18] MEDS ORDERED: Meperidine SYRINGE* 50 MG/ML ONE (14:42)
[2016-07-18] MEDS ORDERED: Midazolam* 1 MG/ML 10 ML VIAL (10 MG) ONE (14:43)
[2016-07-18 16:22] LABS: Hematocrit 27 % (42-52); Hemoglobin 8.8 g/dl (14.0-18.0)
[2016-07-18] MEDS: Atorvastatin* 40 MG TAB PO SCH (17:48)
--- NOTE | 2016-07-18 20:24 | CONS ---
CARDIOLOGY CONSULT REPORT: DATE OF CONSULT: 07/18/16 INDICATION FOR CONSULT: Wide complex tachycardia. HISTORY OF PRESENT ILLNESS: The patient is a 80-year-old gentleman with a history of recent coronary bypass surgery, who was admitted to the hospital because of bright red blood per rectum. The patient came to the emergency room , had no specific symptoms. He denied any shortness of breath. He denied any chest pain. He denied any abdominal pain. He did not have any palpitations. The patient was admitted to the hospital with a diagnosis of a GI bleed. The patient was admitted on telemetry unit. His initial EKG showed a narrow complex EKG with normal sinus rhythm. The patient has been having episodes of tachycardia, which appeared to be sinus tachycardia with a rate-induced left bundle branch block. There are no clear evidence of ventricular tachycardia. PAST MEDICAL HISTORY: Significant for coronary artery disease. He had a coronary bypass surgery in March of 2016 in [place]. At that time, he had a CHANDLER to his LAD, a saphenous vein graft to the ramus artery, saphenous vein graft to the PDA, and a saphenous vein graft to the posterolateral branch of his PDA. The patient also has a history of hypertension, diabetes, bladder cancer, tobacco use. OUTPATIENT MEDICATIONS: 1. Aspirin 81 mg a day. 2. Atorvastatin 40 mg a day. 3. Plavix 75 mg a day. 4. Finasteride 5 mg a day. 5. Metoprolol/hydrochlorothiazide 25/12.5 mg a day. 6. Januvia 100 mg a day. 7. Flomax 0.4 mg a day. ALLERGIES: No known drug allergies. SOCIAL HISTORY: He is . He lives alone. He is retired from [employer]. His daughter is involved in his healthcare. The patient is a DNR/DNI. The patient has a previous history of smoking. He quit 15 years ago. PHYSICAL EXAM: Height is 5 feet 7 inches, weight is 190 pounds. Temperature 98.1, heart rate is 83, respiratory rate is 16, blood pressure 100/53. Sclerae anicteric. Oropharynx is pink without erythema. Carotids are 2+ without bruits. JVD is normal. Thyroid is normal. Lungs are clear to auscultation. Cardiac Exam: S1, S2 without any murmurs, rubs, or gallops. His sternum appears stable. His PMI is normal. Abdomen is soft, nontender, nondistended. Extremities show no edema. DIAGNOSTIC STUDIES/LAB DATA: CBC showed a white count of 9.4, hemoglobin 13, hematocrit 41, platelet count 194. Chemistries within normal limits. Troponin is 0. His EKG demonstrates normal sinus rhythm with a narrow complex and diffuse T- wave abnormalities. On the floor, he clearly has rate-related left bundle branch block. The patient had an echocardiogram today, which showed normal LV size and systolic function. No significant valvular abnormalities. IMPRESSION: The patient is a 80-year-old gentleman who was admitted to the hospital with bright red blood per rectum. The patient has some degree of gastrointestinal bleed, which will be evaluated by Gastroenterology. RECOMMENDATIONS: For now my recommendation is the patient's beta jaron will be increased to 50 mg a day in hopes of controlling his heart rhythm a little better. I do not think any cardiac testing is necessary at this time. The patient can follow up with Dr. Kunz as an outpatient. CC: Dr. Terry Pablo; Dr. Leander Kunz * [id number]/[facility] #: [id number] [facility]
[2016-07-19] MEDS: Albuterol 2.5 MG/3 ML NEB.SOL* (0.083%) INH SCH ×3 (01:00→14:06)
[2016-07-19] MEDS: Insulin LISPRO* 1 UNITS UNIT SUBCUT SCH ×2 (01:27→04:51)
--- NOTE | 2016-07-19 06:14 | PRO ---
DATE OF PROCEDURE: 07/18/16 - ROOM #452 PROCEDURE: Colonoscopy. INDICATION: Hematochezia. REFERRING PHYSICIAN: None. MEDICATIONS: 25 mg IV Demerol, 2 mg IV Versed. DESCRIPTION OF PROCEDURE: After the colonoscopy procedure, including the risks , benefits, and alternatives, not limited to perforation, surgery and/or were explained to Mr. Yuen, written consent was then obtained, IV medication was given, and a rectal exam was performed. The rectal exam was unremarkable. He had cardiac clearance prior to the colonoscopy. The scope was then inserted into the patient's rectum, and advanced very carefully through the entirety of the colon and into the cecal base. Careful and thorough inspection within the cecal base did not reveal any abnormalities. Quality of the preparation was fair. There was a large amount of liquid and ___ __ stool. He had lacey-diverticulosis. At 25 cm from the anal verge was a large diverticulum that did contain a clot. There was no active bleeding. This likely is the culprit. In the rectum, slow pull-through through the anal canal revealed internal hemorrhoids. The scope was withdrawn from the patient. He tolerated the procedure well, and was returned to the recovery room in stable condition. IMPRESSION: 1. Complete colonoscopy into the cecum. 2. Pandiverticulosis. 3. Diverticular bleeding. 4. He should hold his Plavix for the next 3 to 4 days. He does not need any further colonoscopy. [id number]/[facility] #: [id number] [facility]
[2016-07-19 06:15] LABS: Hematocrit 31 % (42-52); Mean Corpuscular HGB Conc 32 g/dl (31-36); Mean Corpuscular Hemoglobin 28 pg (27-31); Mean Corpuscular Volume 86 fL (80-94); Mean Platelet Volume 9 um3 (7.4-10.4); Red Blood Count 3.57 10^6/ul (4.0-5.4); Red Cell Distribution Width 17 % (10.5-15); White Blood Count 9.8 10^3/ul (3.5-10.8)
[2016-07-19] MEDS: Tiotropium CAP.INH* CAP.INH/18 MCG (USE ORDER SET !) INH SCH (07:57)
[2016-07-19] MEDS: Mometasone/Formoter 200/5 MDI INH SCH (07:57)
--- NOTE | 2016-07-19 08:43 | DCNOTE ---
Subjective Date of Service: 07/19/16 Interval History: Small amounts BRBPR during the night, last at about 4 AM. No new c/o. Family History: Unchanged from Admission Social History: Unchanged from Admission Past Medical History: Unchanged from Admission Objective Active Medications: Acetaminophen (Tylenol Tab*) 650 mg PO Q6H PRN PRN Reason: FEVER/PAIN Albuterol (Ventolin 2.5 Mg/3 Ml Neb.Christa*) 2.5 mg INH Q2H PRN PRN Reason: SOB/WHEEZING Albuterol (Ventolin 2.5 Mg/3 Ml Neb.Christa*) 2.5 mg INH [id number] AWAKE [facility] Last Admin: 07/19/16 07:57 Dose: Not Given Atorvastatin Calcium (Lipitor*) 40 mg PO QPM [facility] Last Admin: 07/18/16 17:48 Dose: 40 mg Finasteride (Proscar Tab*) 5 mg PO DAILY [facility] Last Admin: 07/18/16 08:22 Dose: Not Given Insulin Human Lispro (Humalog*) 0 units SUBCUT Q4H [facility] PRN Reason: Protocol Last Admin: 07/19/16 04:51 Dose: Not Given Metoprolol Tartrate (Lopressor Tab*) 25 mg PO Q12HR [facility] Last Admin: 07/18/16 20:39 Dose: Not Given Mometasone Furoate/Formoterol Fumar (Dulera 200/5 Mdi*) 2 puff INH BID [facility] Last Admin: 07/19/16 07:57 Dose: 2 puff Ondansetron HCl (Zofran Inj*) 4 mg IV Q6H PRN PRN Reason: NAUSEA Prochlorperazine Edisylate (Compazine Inj*) 10 mg IV Q6H PRN PRN Reason: NAUSEA Tamsulosin HCl (Flomax Cap*) 0.4 mg PO DAILY [facility] Last Admin: 07/18/16 08:22 Dose: Not Given Tiotropium [place] (Spiriva Cap.Inh*) 1 cap INH DAILY [facility] Last Admin: 07/19/16 07:57 Dose: 1 cap.inh Vital Signs 07/18/16 07/18/16 07/18/16 10:14 11:40 12:22 Temperature 98.1 F Pulse Rate 95 83 79 Respiratory 16 16 Rate Blood Pressure 100/60 100/53 (mmHg) O2 Sat by Pulse 96 99 Oximetry 07/18/16 07/18/16 07/18/16 15:57 20:00 20:34 Temperature 97.4 F 99.2 F Pulse Rate 92 88 Respiratory 18 17 16 Rate Blood Pressure 95/55 83/37 (mmHg) O2 Sat by Pulse 91 95 Oximetry 07/18/16 07/18/16 07/19/16 20:36 23:55 00:19 Temperature 97.9 F Pulse Rate 86 31 89 Respiratory 20 16 Rate Blood Pressure 90/43 (mmHg) O2 Sat by Pulse 99 95 Oximetry 07/19/16 07/19/16 03:54 08:01 Temperature 98.4 F Pulse Rate 93 90 Respiratory 16 16 Rate Blood Pressure 95/56 (mmHg) O2 Sat by Pulse 92 92 Oximetry Oxygen Devices in Use Now: None Appearance: Alert, partly up in bed. In good spirits. Looks comfortable. Eyes: No Scleral Icterus Neck: NL Appearance and Movements; NL JVP, No Thyroid Enlargement, Masses Respiratory: Symmetrical Chest Expansion and Respiratory Effort, Clear to Auscultation, Clear to Percussion Cardiovascular: NL Sounds; No Murmurs; No JVD, RRR, No Edema, - Abdominal: NL Sounds; No Tenderness; No Distention, No Hepatosplenomegaly, - Extremities: No Edema, No Clubbing, Cyanosis, - Skin: No Rash or Ulcers, No Nodules or Sclerosis, - Neurological: Alert and Oriented x 3, NL Sensation Result Diagrams: 07/19/16 05:31 07/18/16 06:05 Additional Lab and Data: Laboratory Tests 07/17/16 07/17/16 04:50 10:47 Hgb 13.0 L 11.9 L Hct 41 L 37 L Assess/Plan/Problems-Billing Assessment: 80 yo man with recent CABG, admitted with apparent LGI bleed, suspect diverticular source - Patient Problems (1) Lower gastrointestinal hemorrhage Current Visit: Yes Status: Acute Priority: High Code(s): K92.2 - GASTROINTESTINAL HEMORRHAGE, UNSPECIFIED SNOMED Code(s): 01419772 Comment: GI consult appreciated. Dr. Stewart did colonoscopy 07/18, showed diverticulosis with a small clot over one diverticulum. Will recheck H/H 07/19 at 1 pm. If stable, consider discharge 07/19. (2) CAD (coronary artery disease) Current Visit: Yes Status: Acute Code(s): I25.10 - ATHSCL HEART DISEASE OF [place] CORONARY ARTERY W/O ANG PCTRS SNOMED Code(s): 54973271 Comment: Records requested from [facility]. Continue BB, statin, ASA. Resume clopidogrel if no active bleeding seen and dx is diverticular bleeding. (3) LBBB (left bundle branch block) Current Visit: Yes Status: Acute Code(s): I44.7 - LEFT BUNDLE-BRANCH BLOCK, UNSPECIFIED SNOMED Code(s): 58495760 Comment: Rate related. Discussed with Dr. Frnacis. Increase metoprolol to 25 mg bid. (4) Diabetes Current Visit: Yes Status: Acute Code(s): E11.9 - TYPE 2 DIABETES MELLITUS WITHOUT COMPLICATIONS SNOMED Code(s): 51112542 Comment: Resume home dose sitagliptin.
[2016-07-19] MEDS ORDERED: CMCS - SitaGLIPtin (NF) 100 MG TAB PO SCH (09:00)
[2016-07-19] MEDS: Metoprolol Tartrate TAB* 25 MG PO SCH (09:56)
[2016-07-19] MEDS: Finasteride TAB* 5 MG PO SCH (09:57)
[2016-07-19] MEDS: Tamsulosin CAP* 0.4 MG PO SCH (09:57)
[2016-07-19 12:50] VITALS: BP 98/54
[2016-07-19 13:57] LABS: Hematocrit 33 % (42-52); Hemoglobin 10.5 g/dl (14.0-18.0)
== END 2016-07-19 17:45 | disposition home or self-care (01) | DRG 379 ==
LOC: ED 04:37 → MEDTELE 05:30
PROVIDERS: ADMIT Hospitalist; ATTEND Internal Medicine
PROC: 0DJD8ZZ Inspection of Lower Intestinal Tract, Via Natural or Artificial Opening Endoscopic (ICD-10-PCS; principal; 2016-07-18)
DX: K57.31 Diverticulosis of large intestine without perforation or abscess with bleeding (principal); E11.9 Type 2 diabetes mellitus without complications; I44.7 Left bundle-branch block, unspecified; I10 Essential (primary) hypertension; I25.10 Atherosclerotic heart disease of native coronary artery without angina pectoris; E78.5 Hyperlipidemia, unspecified; Z66 Do not resuscitate; E66.3 Overweight; K64.8 Other hemorrhoids; N40.0 Benign prostatic hyperplasia without lower urinary tract symptoms; R00.0 Tachycardia, unspecified; Z95.1 Presence of aortocoronary bypass graft; Z85.51 Personal history of malignant neoplasm of bladder; Z87.891 Personal history of nicotine dependence; Z82.49 Family history of ischemic heart disease and other diseases of the circulatory system; Z83.3 Family history of diabetes mellitus; Z83.49 Family history of other endocrine, nutritional and metabolic diseases; Z68.29 Body mass index [BMI] 29.0-29.9, adult
CPT/HCPCS: 36415; 80048; 80053; 82272; 83036; 83605; 83690; 83735; 84484; 85014; 85018; 85025; 85027; 85610; 85730; 86850; 86900; 86901; 93005; 93306; 93798; 94640; 94760; A9270-GY; J2175; J2250; J3475; J3480

== ENCOUNTER 2017-04-17 08:41 | Emergency (ER) | payer MEDICARE, OTHER ==
[2017-04-17 08:54] VITALS: BP 87/40
--- NOTE | 2017-04-17 09:16 | UC ---
Upper Extremity HPI - HPI Summary HPI Summary: bruise on forearm for 2 days - History of Current Complaint Hx Obtained From: Patient ?: No Onset/Duration: Sudden Onset, Lasting Days - 2 Severity Initially: Mild Severity Currently: Mild Pain Intensity: 0 Pain Scale Used: 0-10 Numeric Location Of Pain: Is Discrete @ - volar surface right fore arm Alleviating Factor(s): Nothing Associated Signs And Symptoms: Positive: Negative Related History: Dominant Hand Right <Aixa Vazquez - Last Filed: 04/17/17 09:34> <Fior Perez - Last Filed: 04/17/17 14:01> - History of Current Complaint Chief Complaint: UCSkin Stated Complaint: SOFT TISSUE Time Seen by Provider: 04/17/17 09:05 - Allergies/Home Medications Allergies/Adverse Reactions: Allergies Allergy/AdvReac Type Severity Reaction Status Date / Time No Known Allergies Allergy Verified 03/07/17 10:27 PMH/Surg Hx/FS Hx/Imm Hx Previously Healthy: Yes Endocrine History: Diabetes, Dyslipidemia Cardiovascular History: Cardiac Disease, Hypertension Other Cancer History: Lymphoma - Surgical History Surgical History: Yes Surgery Procedure, Year, and Place: Surgical removal of bladder tumor - Family History Known Family History: Positive: None - Social History Occupation: Retired Lives: With Family Alcohol Use: None Substance Use Type: None Smoking Status (MU): Former Smoker - Immunization History Most Recent Influenza Vaccination: 2016 Most Recent Tetanus Shot: unk Most Recent Pneumonia Vaccination: 2015 <Aixa Vazquez - Last Filed: 04/17/17 09:34> Review of Systems Constitutional: Negative Skin: Bruising - volar surface right forearm Eyes: Negative ENT: Negative Respiratory: Negative Cardiovascular: Negative Gastrointestinal: Negative Genitourinary: Negative Motor: Negative Neurovascular: Negative Musculoskeletal: Negative Neurological: Negative Psychological: Negative Is Patient Immunocompromised?: Yes All Other Systems Reviewed And Are Negative: Yes <Aixa Vazquez - Last Filed: 04/17/17 09:34> Physical Exam Triage Information Reviewed: Yes Appearance: Well-Appearing, No Pain Distress, Well-Nourished Vital Signs: Initial Vital Signs Temp 97.8 F 04/17/17 08:50 Pulse 101 04/17/17 08:50 Resp 18 04/17/17 08:50 BP 87/40 04/17/17 08:50 Pulse Ox 100 04/17/17 08:50 Vital Signs Reviewed: Yes Eye Exam: Normal Eyes: Positive: Conjunctiva Clear ENT Exam: Normal ENT: Positive: Normal ENT inspection, Hearing grossly normal. Negative: Nasal congestion, Nasal drainage, Trismus, Muffled voice, Hoarse voice Dental Exam: Normal Neck exam: Normal Neck: Positive: Supple, Nontender Respiratory Exam: Normal Respiratory: Positive: Chest non-tender, No respiratory distress, No accessory muscle use Cardiovascular Exam: Normal Cardiovascular: Positive: RRR, Pulses Normal, Brisk Capillary Refill Musculoskeletal Exam: Normal Musculoskeletal: Positive: Strength Intact, ROM Intact, No Edema Neurological Exam: Normal Neurological: Positive: Alert, Muscle Tone Normal Psychological Exam: Normal Skin Exam: Other Skin: Positive: Other - 15 x6 cm bruise volar surface right forearm <Aixa Vazquez - Last Filed: 04/17/17 09:34> Vital Signs: Initial Vital Signs Temp 97.8 F 04/17/17 08:50 Pulse 101 04/17/17 08:50 Resp 18 04/17/17 08:50 BP 87/40 04/17/17 08:50 Pulse Ox 100 04/17/17 08:50 <Fior Perez - Last Filed: 04/17/17 14:01> Upper Extremity Course/Dx - Course Course Of Treatment: follow with pcp, report addition bruising - Differential Dx/Diagnosis Provider Diagnoses: Contusion right forearm <Aixa Vazquez - Last Filed: 04/17/17 09:34> Discharge <Aixa Vazquez - Last Filed: 04/17/17 09:34> <Fior Perez - Last Filed: 04/17/17 14:01> - Discharge Plan Condition: Stable Disposition: HOME Patient Education Materials: Contusion in Adults (ED) Referrals: Ihsan Arguelles DO [Primary Care Provider] - 1 Week Attestation Statement User Type: Provider - I was available for consult. This patient was seen by the [facility]. The patient was not presented to, seen by, or examined by me. -Cayetano <Fior Perez - Last Filed: 04/17/17 14:01>
== END 2017-04-17 09:25 | disposition home or self-care (01) ==
LOC: UCEAST 08:41
DX: S50.11XA Contusion of right forearm, initial encounter (principal); X58.XXXA Exposure to other specified factors, initial encounter; Y92.9 Unspecified place or not applicable; E11.9 Type 2 diabetes mellitus without complications; Z87.891 Personal history of nicotine dependence; I10 Essential (primary) hypertension
CPT/HCPCS: 99211; G0463

== ENCOUNTER 2018-02-24 15:59 | Emergency (ER) | payer MEDICARE, OTHER ==
[2018-02-24] MEDS ORDERED: Tetan/Diph/Pertus SYR(Tdap)* 0.5 ML SYR(BOOSTRIX) use SYR IM ONE (18:29)
[2018-02-24] MEDS ORDERED: Ciprofloxacin TAB* 500 MG PO ONE (18:29)
--- NOTE | 2018-02-24 18:31 | ED ---
Skin Complaint - HPI Summary HPI Summary: 82-year-old male presents with puncture wound from nail in left foot. He states that he stepped on nail and it went through his shoe and into his foot. He removed the nail. His tetanus is not up-to-date. He is diabetic. He is on blood thinners for A. fib. He states area did bleed a little. He did clean the area. - History of Current Complaint Chief Complaint: EDExtremityLower Time Seen by Provider: 02/24/18 18:16 Stated Complaint: LT FOOT INJURY Pain Intensity: 0 - Additional Pertinent History Primary Care Physician: [id number] - Allergy/Home Medications Allergies/Adverse Reactions: Allergies Allergy/AdvReac Type Severity Reaction Status Date / Time No Known Allergies Allergy Verified 03/07/17 10:27 PMH/Surg Hx/FS Hx/Imm Hx Endocrine/Hematology History: Reports: Hx Diabetes Cardiovascular History: Reports: Hx Angina, Hx Coronary Artery Disease, Hx Hypercholesterolemia, Hx Hypertension, Hx Myocardial Infarction Denies: Hx Valvular Heart Disease Respiratory History: Denies: Hx Asthma, Hx Chronic Obstructive Pulmonary Disease (COPD) History: Reports: Hx Benign Prostatic Hyperplasia Sensory History: Reports: Hx Hearing Problem - Cancer History Cancer Type, Location and Year: Bladder cx, w/ surgical removal , lymphoma - Surgical History Surgery Procedure, Year, and Place: Surgical removal of bladder tumor - Immunization History Date of Tetanus Vaccine: unk Date of Influenza Vaccine: unk Infectious Disease History: No Infectious Disease History: Denies: Hx Clostridium Difficile, Hx Hepatitis, Hx Human Immunodeficiency Virus (HIV), Hx of Known/Suspected MRSA, Traveled Outside the [place] in Last 30 Days - Family History Known Family History: Positive: None - Social History Alcohol Use: None Substance Use Type: Reports: None Smoking Status (MU): Former Smoker Review of Systems Negative: Fever Negative: Chest Pain Negative: Shortness Of Breath Positive: Myalgia - left foot puncture wound All Other Systems Reviewed And Are Negative: Yes Physical Exam Triage Information Reviewed: Yes Vital Signs On Initial Exam: Initial Vitals Temp Pulse Resp BP Pulse Ox 97.7 F 74 16 125/69 96 02/24/18 16:03 02/24/18 16:03 02/24/18 16:03 02/24/18 16:03 02/24/18 16:03 Vital Signs Reviewed: Yes Appearance: Positive: Well-Appearing Skin: Positive: Warm, Dry, Other - puncture wound to left foot Head/Face: Positive: Normal Head/Face Inspection Eyes: Positive: Normal, Conjunctiva Clear ENT: Positive: Pharynx normal Respiratory/Lung Sounds: Positive: Clear to Auscultation, Breath Sounds Present Cardiovascular: Positive: Normal, RRR Musculoskeletal: Positive: Strength/ROM Intact - left foot, Other - good pulses Neurological: Positive: Normal Psychiatric: Positive: Normal Diagnostics - Vital Signs Vital Signs Temp Pulse Resp BP Pulse Ox 02/24/18 16:03 97.7 F 74 16 125/69 96 - Laboratory Lab Statement: Any lab studies that have been ordered have been reviewed, and results considered in the medical decision making process. Course/Dx - Course Course Of Treatment: 82-year-old male presents with puncture wound from nail in left foot. He states that he stepped on nail and it went through his shoe and into his foot. He removed the nail. His tetanus is not up-to-date. He is diabetic. He is on blood thinners for A. fib. He states area did bleed a little. He did clean the area. on exam a small puncture wound to left foot. Cleaned area. Will place on Cipro to cover for pseudomonas. warned of any signs of infection to return to ED. Patient understands and agrees with plan. - Differential Diagnoses - Skin Complaint Differential Diagnoses: Other - puncture wound, lacertion, abrasion - Diagnoses Provider Diagnoses: Foreign body in left foot Discharge - Sign-Out/Discharge Documenting (check all that apply): Patient Departure - Discharge Plan Condition: Good Disposition: HOME Prescriptions: Ciprofloxacin TAB* [Cipro 500 MG TAB*] 500 mg PO BID #10 tab Patient Education Materials: Soft Tissue Foreign Body (ED) Referrals: Ihsan Arguelles DO [Primary Care Provider] - Additional Instructions: Take antibiotic twice a day for 5 days Soak area twice a day Place Neosporin on area Return to ED if develop any signs of infection such as spreading redness, fever , or pus, or any new or worsening symptoms - Billing Disposition and Condition Condition: GOOD Disposition: Home
[2018-02-24 18:56] VITALS: BP 131/59
== END 2018-02-24 18:55 | disposition home or self-care (01) ==
LOC: ED 15:59
DX: S91.342A Puncture wound with foreign body, left foot, initial encounter (principal); W22.8XXA Striking against or struck by other objects, initial encounter; Z23 Encounter for immunization; E11.9 Type 2 diabetes mellitus without complications; I25.119 Atherosclerotic heart disease of native coronary artery with unspecified angina pectoris; I10 Essential (primary) hypertension; I25.2 Old myocardial infarction; E78.00 Pure hypercholesterolemia, unspecified; N40.0 Benign prostatic hyperplasia without lower urinary tract symptoms; Z79.899 Other long term (current) drug therapy; Z87.891 Personal history of nicotine dependence
CPT/HCPCS: 90471; 90715; 99282; A9270-GY

== ENCOUNTER 2018-07-27 06:06 | Inpatient (IN) | payer MEDICARE, OTHER ==
[2018-07-27] MEDS ORDERED: NS 0.9% 1000 ML** 1,000 ML IV.FLUID IV ONE (07:19)
--- NOTE | 2018-07-27 07:34 | ED ---
Complex/Multi-Sys Presentation - HPI Summary HPI Summary: Patient is a 82 y/o M presenting to ED with complaints of fever, productive cough, rhinorrhea, congestion, bilateral elbow pain, intermittent SOB, intermittent chest pain, intermittent dizziness. Sx onset yesterday, patient reports that Sx are less severe today. Fever onset this morning, states he measured a temporal temp of 101 F at 0500 at home which has since gone down spontaneously to 99.9 F since arrival to ED. Patient did not take Tylenol [employer]. He has had similar episodes of dizziness previously, syncope is denied. He reports experiencing SOB "a couple times" today. Sore throat, HORAN is additionally denied. Patient had flu shot in February of last year. He lives alone, closet family member is daughter in [place]. PHMx of LBBB, diabetes, [place]. No Hx of PNA, asthma, COPD or pacemaker. Hx of lymphoma onsetting "a couple of years ago", patient is followed by Dr. Urias, he is on acalabrutinib for lymphoma. When asked if he has Hx of CHF, patient responds, "Probably, I got everything wrong." PSHx of quadruple bypass 03/20 done in [place]. No other PSHx reported. FMHx of cardiac disease, cancer. NKDA reported. PCP is Dr. Arguelles, cooker syrup is Dr. Francis, oncologist is Dr. Urias. On triage, associated severity is rated 5/10, nothing is noted to aggravate/alleviate Sx. Home medications, allergies, and nurse's notes reviewed. Pt drove himself to the ED. Allergies/Adverse Reactions: Allergies Allergy/AdvReac Type Severity Reaction Status Date / Time No Known Allergies Allergy Verified 07/27/18 06:12 Home Medications: Home Medications Acalabrutinib [Calquence] 100 mg PO BID 07/27/18 [History Confirmed 07/27/18] Lisinopril [Lisinopril 2.5 MG-] 2.5 mg PO DAILY 07/27/18 [History Confirmed ] Tamsulosin CAP* [Flomax CAP*] 0.4 mg PO DAILY 07/27/18 [History Confirmed ] - History Of Current Complaint Chief Complaint: EDFluSymptoms Hx Obtained From: Patient Onset/Duration: Lasting Hours - fever onset 0500 today, Lasting Days - productive cough, rhinorrhea, congestion, bilateral elbow pain, intermittent SOB , intermittent chest pain, intermittent dizziness, Still Present, Resolved - fever Timing: Constant, Intermittent, Lasting: - chest pain, SOB, dizziness, Hours - fever onset 0500 today, Days - productive cough, rhinorrhea, congestion, bilateral elbow pain Severity Currently: Mild - 5/10 Severity Initially: Mild Location: Pain At: - bilateral elbow pain, intermittent chest pain Aggravating Factor(s): nothing Alleviating Factor(s): nothing Associated Signs And Symptoms: Positive: Dizziness - intermittent, SOB - intermittent, Cough - productive,, Chest Pain - intermittent, Fever - since resolved, Other - endorses rhinorrhea, congestion, bilateral elbow pain, denies sore throat. Negative: Syncope, Headache - Allergies/Home Medications Allergies/Adverse Reactions: Allergies Allergy/AdvReac Type Severity Reaction Status Date / Time No Known Allergies Allergy Verified 07/27/18 06:12 Home Medications: Home Medications Acalabrutinib [Calquence] 100 mg PO BID 07/27/18 [History Confirmed 07/27/18] Lisinopril [Lisinopril 2.5 MG-] 2.5 mg PO DAILY 07/27/18 [History Confirmed ] Tamsulosin CAP* [Flomax CAP*] 0.4 mg PO DAILY 07/27/18 [History Confirmed ] PMH/Surg Hx/FS Hx/Imm Hx Previously Healthy: No Endocrine/Hematology History: Reports: Hx Diabetes, Other Endocrine/ Hematological Disorders - 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 Urias Cardiovascular History: Reports: Hx Angina, Hx Coronary Artery Disease, Hx Hypercholesterolemia, Hx Hypertension, Hx Myocardial Infarction Denies: Hx Valvular Heart Disease Respiratory History: Denies: Hx Asthma, Hx Chronic Obstructive Pulmonary Disease (COPD), Hx Pneumonia History: Reports: Hx Benign Prostatic Hyperplasia Sensory History: Reports: Hx Hearing Problem - Cancer History Cancer Type, Location and Year: Bladder cx, w/ surgical removal , lymphoma - Surgical History Surgery Procedure, Year, and Place: Surgical removal of bladder tumor. quadruple bypass 03/20 - Immunization History Date of Tetanus Vaccine: unk Date of Influenza Vaccine: Feb 2018 Infectious Disease History: No Infectious Disease History: Denies: Hx Clostridium Difficile, Hx Hepatitis, Hx Human Immunodeficiency Virus (HIV), Hx of Known/Suspected MRSA, Traveled Outside the [place] in Last 30 Days - Family History Known Family History: Positive: Cardiac Disease, Other - cancer - Social History Lives: Alone Alcohol Use: None Substance Use Type: Reports: None Smoking Status (MU): Former Smoker Review of Systems Positive: Fever - since resolved ENT: Other - POSITIVE - CONGESTION Positive: Nasal Discharge - rhinorrhea . Negative: Sore Throat Positive: Chest Pain - INTERMITTENT Positive: Shortness Of Breath - INTERMITTENT, Cough - productive Gastrointestinal: Negative Positive: no symptoms reported Musculoskeletal: Other - POSITIVE - BILATERAL ELBOW PAIN Skin: Negative Neurological: Other - POSITIVE - INTERMITTENT DIZZINESS Negative: Headache, Syncope Psychological: Normal All Other Systems Reviewed And Are Negative: Yes Physical Exam - Summary Physical Exam Summary: Appearance: Ill-appearing, moderate pain distress, well-nourished Skin: Warm, color reflects adequate perfusion, dry; midline chest scar from CABG , port at right upper chest is noted Head: Normal Head/Face inspection, atraumatic Eyes: Conjunctiva clear, Pharynx clear ENT: Nasal congestion is noted, otherwise normal inspection Neck: Supple, no nodes, no JVD Respiratory: Lungs clear, normal breath sounds, no respiratory distress Cardio: RRR, No murmur, pulses normal, brisk capillary refill Abdomen: Soft, nontender Bowel sounds: Present Musculoskeletal: Strength Intact/ROM intact, no calf tenderness, no edema. Psychological: Normal Neuro: Alert, muscle tone normal, no focal deficit Triage Information Reviewed: Yes Vital Signs On Initial Exam: Initial Vitals Temp Pulse Resp BP Pulse Ox 99.9 F 106 16 116/66 97 07/27/18 06:09 07/27/18 06:09 07/27/18 06:09 07/27/18 06:09 07/27/18 06:09 Vital Signs Reviewed: Yes Diagnostics - Vital Signs Vital Signs Temp Pulse Resp BP Pulse Ox 07/27/18 06:09 99.9 F 106 16 116/66 97 - Laboratory Result Diagrams: 07/31/18 04:29 07/31/18 04:29 Lab Statement: Any lab studies that have been ordered have been reviewed, and results considered in the medical decision making process. - Radiology CXR Radiology Interpretation Completed By: Radiologist Summary of Radiographic Findings: CXR IMPRESSION: MILD PROMINENCE OF THE INTERSTITIAL MARKINGS POSSIBLY ARTIFACTUAL DUE TO. UNDERINFLATION OF THE LUNGS ALTERNATIVELY THIS MAY INDICATE MILD CONGESTIVE HEART FAILURE. THIS REPORT WAS REVIEWED BY ED PHYSICIAN. second cxr Radiology Interpretation Completed By: Radiologist Summary of Radiographic Findings: IMPRESSION: PULMONARY INTERSTITIAL EDEMA. THIS REPORT WAS REVIEWED BY ED PHYSICIAN. - EKG 0802 Cardiac Rate: Tachycardia - rate of 110 BPM EKG Rhythm: Sinus Tachycardia ST Segment: Non-Specific Ectopy: None EKG Comparison: Other - compared to 07/19/16, LBBB is new, however pt knew he had LBBB Summary of EKG Findings: EKG showed sinus tachycardia with rate of 110 BPM, normal AV, prolonged IVCT with LBBB, prolonged QTc 505, QRS axis 3. No ectopy, non-specific ST. No acute changes. Compared to previous 07/19/16, LBBB is new. 1211 Cardiac Rate: Tachycardia - rate of 116 BPM EKG Rhythm: Sinus Tachycardia ST Segment: Non-Specific Ectopy: None Summary of EKG Findings: EKG showed sinus tachycardia with rate of 116, normal AV, prolonged IV in LBBB pattern, nml QTc. No acute changes. No ectopy, non- specific ST. 1212 Cardiac Rate: Tachycardia - rate of 114 BPM EKG Rhythm: Sinus Tachycardia ST Segment: Non-Specific Ectopy: None Summary of EKG Findings: Sinus tachycardia with rate of 114, nml AV, prolonged IV in LBBB pattern, prolonged QTc (509). No acute changes. No ectopy, non- specific ST. No change c/w previous EKG today. 1413 Cardiac Rate: Tachycardia - rate of 109 BPM EKG Rhythm: Sinus Tachycardia ST Segment: Non-Specific Ectopy: None Summary of EKG Findings: Sinus tachycardia with rate of 109, nml AV, prolonged IV in LBBB pattern, prolonged QTc (515). No acute changes. No ectopy, non- specific ST. Re-Evaluation - Re-Evaluation First Eval Re-Evaluation Time: 08:42 Change: Unchanged Comment: Aware of 0.04 trop at this time. Second Eval Re-Evaluation Time: 09:58 Change: Worse Comment: Nurse states that patient dropped to 88 o2 sat on RA, was placed on 2L o2 NC. Third Eval Re-Evaluation Time: 12:02 Change: Worse Comment: Results of labs and tests were discussed with patient, need for admission was discussed. Patient is agreeable with admission. In room, BP is 83/ 66, pulse 103, patient appears more fatigued. As leaving the room, nurse notified that 4-5 beat run of vtach was noted on monitor. Another EKG to be done. At this time with hypotension, probable sepsis, Dr. Hendricks wished to continue IV fluds. Additional 1L NS given. Fourth Eval Re-Evaluation Time: 12:15 Change: Unchanged Comment: Two additional EKGs obtained, patient vomited during EKG. Fifth Eval Re-Evaluation Time: 13:42 Change: Worse Comment: O2 was removed briefly by nurse to clean patient up he immediately desatted to 77% on room air. Pt placed on 15L oxymask. In room, pulse 110, o2 88 , resp rate 31, BP 105/75, temp 98.6 F; audible rhonchi and rales are heard. Another CXR and EKG to be done, Dr. Hendricks paged. Sixth + Eval Re-Evaluation Time: 13:58 Change: Worse Comment: Respiratory initiated vapotherm, Dr. Hendricks to evaluate. Complex Multi-Symp Course/Dx Course Of Treatment: Patient is a 82 y/o M presenting to ED with complaints of fever, productive cough, rhinorrhea, congestion, bilateral elbow pain, intermittent SOB, intermittent chest pain, intermittent dizziness. Sx onset yesterday, patient reports that Sx are less severe today. Fever onset this morning, states he measured a temporal temp of 101 F at 0500 at home which has since gone down spontaneously to 99.9 F since arrival to ED. Patient did not take Tylenol [employer]. He has had similar episodes of dizziness previously, syncope is denied. He reports experiencing SOB "a couple times" today. Sore throat, HORAN is additionally denied. Patient had flu shot in February of last year. He lives alone, closet family member is daughter in [place]. PHMx of LBBB, diabetes, [place]. No Hx of PNA, asthma, COPD or pacemaker. Hx of lymphoma onsetting "a couple of years ago", patient is followed by Dr. Urias, he is on acalabrutinib for lymphoma. When asked if he has Hx of CHF, patient responds, "Probably, I got everything wrong." PSHx of quadruple bypass 03/20 done in [place]. No other PSHx reported. FMHx of cardiac disease, cancer. NKDA reported. PCP is Dr. Arguelles, cooker syrup is Dr. Francis, oncologist is Dr. Urias. On triage, associated severity is rated 5/10, nothing is noted to aggravate/alleviate Sx. Home medications, allergies, and nurse's notes reviewed. On physical exam, moderate pain distress and ill appearance is noted , midline chest scar from CABG, nasal congestion, and port at right upper chest is noted. EKG showed sinus tachycardia with rate of 110 BPM, normal AV, prolonged IVCT with LBBB, prolonged QTc 505, QRS axis 3. Compared to previous , LBBB is new. No acute changes. No ectopy, non-specific ST. CXR IMPRESSION: MILD PROMINENCE OF THE INTERSTITIAL MARKINGS POSSIBLY ARTIFACTUAL DUE TO. UNDERINFLATION OF THE LUNGS ALTERNATIVELY THIS MAY INDICATE MILD CONGESTIVE HEART FAILURE. Labs showed Hgb 13.4, Hct 41, RDW 16, Plt count 116, absolute neuts 8.6, absolute lymphs 0.4, absolute monos 0.9, ESR 8, BUN/ creatinine 22.4, glucose 118, lactic acid 1.3, total bilirubin 1.1, trop 0.04, BNP 335. UA showed 1+ ketones, 1+ blood, trace WBC, trace RBC, present squamous epith cells. Influenza A was positive. During ED course, patient received Tamiflu 75 mg PO ONCE and IV fluids 30cc/kg and additional 1 L NS. During stay , patient dropped to 88 o2 sat on RA, was placed on 2L o2 NC. 1200 - Patient's case was discussed with Dr. Hendricks, Dr. Hendricks accepts the patient for admission. Results of labs and tests were discussed with patient, need for admission was discussed. Patient is agreeable with admission. In room, BP is 83/ 66, pulse 103, patient appears more fatigued. As leaving the room, 4-5 beat run of vtach was noted on monitor. Another EKG to be done. 1211 EKG - Sinus tachycardia with rate of 116, normal AV, prolonged IV in LBBB pattern, nml QTc. No ectopy, non-specific ST. No acute changes. 1212 EKG - Sinus tachycardia with rate of 114, nml AV, prolonged IV in LBBB pattern, prolonged QTc (509). No ectopy, non-specific ST. No acute changes. After EKG, patient vomited. Dr. Hendricks and PA Ender Harris were updated on patient's case and clinical deterioration of respiratory status and mental status. O2 was removed briefly by nurse to clean patient up he immediately desatted to 77% on room air. Pt placed on 15L oxymask. In room, pulse 110, o2 88, resp rate 31, BP 105/75, temp 98.6 F; audible rhonchi and rales are heard. Another CXR and EKG to be done, Dr. Hendricks paged. Respiratory initiated vapotherm on patient, Dr. Hendricks evaulated patient. 1413 EKG - Sinus tachycardia with rate of 109, nml AV, prolonged IV in LBBB pattern, prolonged QTc (515). No ectopy, non-specific ST. No acute changes. SECOND CXR -. IMPRESSION: PULMONARY INTERSTITIAL EDEMA. Sepsis protocol was initiated upon arrival and 30cc/kg IV fluid given. With worsening respiratory status and interstitial edema on CXR, fluids are decreased. Pt not given antibiotics initially as source of sepsis believed to be positive influenza A. - Diagnoses Provider Diagnoses: Influenza A, LBBB (left bundle branch block), Elevated troponin, Hx of lymphoma , Acute respiratory failure with hypoxia, Interstitial edema, Sepsis, Ventricular tachycardia seen on leather staker - Physician Notifications Discussed Care Of Patient With: Ingris Hendricks Time Discussed With Above Provider: 12:00 Instructed by Provider To: Other - 1200 - Patient's case was discussed with Dr. Hendricks, Dr. Hendricks accepts the patient for admission. 1209 - Dr. Hendricks was updated on patient's condition, she is agreeable with fluid bolus. 1240 - Dr. Hendricks's PA Endre Harris was updated on patient's condition. - Critical Care Time Critical Care Time: 30-74 min - 30 minutes Discharge - Sign-Out/Discharge Documenting (check all that apply): Patient Departure - admit - Discharge Plan Condition: Good Disposition: ADMITTED TO [facility] - Billing Disposition and Condition Condition: GOOD Disposition: Admitted to [facility] - Attestation Statements Document Initiated by Scribe: Yes Documenting Scribe: BARBARA ANNE Provider For Whom Scribe is Documenting (Include Credential): CHOCO TAPIA MD Scribe Attestation: BARBARA Baker , scribed for CHOCO TAPIA MD on 08/01/18 at 2345. Scribe Documentation Reviewed: Yes Provider Attestation: The documentation as recorded by the scribe, BARBARA ANNE accurately reflects the service I personally performed and the decisions made by me, CHOCO TAPIA MD Status of Scribe Document: Viewed
[2018-07-27 07:39] LABS: ABS Basophils 0 10^3/ul (0-0.2); ABS Eosinophils 0 10^3/ul (0-0.6); ABS Lymphocytes 0.4 10^3/ul (1.0-4.8); ABS Monocytes 0.9 10^3/ul (0-0.8); ABS Neutrophils 8.6 10^3/ul (1.5-7.7); ABS Nucleated RBC 0 10^3/ul; Eosinophil % 0.2 %; Hematocrit 41 % (42-52); Hemoglobin 13.4 g/dl (14.0-18.0); Lymphocyte % 4.4 %; Mean Corpuscular HGB Conc 33 g/dl (31-36); Mean Corpuscular Hemoglobin 30 pg (27-31); Mean Corpuscular Volume 92 fL (80-94); Mean Platelet Volume 8.7 fL (7.4-10.4); Nucleated Red Blood Cells % 0; Platelet Count 116 10^3/ul (150-450); Red Blood Count 4.42 10^6/ul (4.00-5.40); Red Cell Distribution Width 16 % (10.5-15)
[2018-07-27 07:50] LABS: Activated Partial Thrombo Time 30.9 seconds (26.0-36.3); INR 0.97 (0.77-1.02)
[2018-07-27 07:56] LABS: Albumin 3.9 g/dL (3.2-5.2); Albumin/Globulin Ratio 1.5 (1-3); BUN/Creatinine Ratio 22.4 (8-20); C Reactive Protein 5.89 mg/L (<8.01); Calcium 9.4 mg/dL (8.6-10.3); EGFR African American 104.7 (>60); EGFR Non-African American 86.5 (>60); Globulin 2.6 g/dL (2-4); Total Bilirubin 1.1 mg/dL (0.2-1.0); Total Protein 6.5 g/dL (6.4-8.9)
[2018-07-27 08:15] LABS: Influenza A Molecular POSITIVE (Negative)
[2018-07-27] MEDS ORDERED: Oseltamivir CAP* 75 MG CAP PO ONE (08:42)
[2018-07-27 08:43] LABS: Troponin I 0.04 ng/mL (<0.04)
[2018-07-27 10:59] LABS: Erythrocyte Sed Rate 8 mm/Hr (0-20)
[2018-07-27 11:01] LABS: Urine Appearance Cloudy; Urine Bacteria Absent (Absent); Urine Bilirubin Negative (Negative); Urine Blood 1+ (Negative); Urine Color Yellow; Urine Glucose Negative (Negative); Urine Ketones 1+ (Negative); Urine Nitrite Negative (Negative); Urine Protein Negative (Negative); Urine Red Blood Cell Trace(0-2/hpf) (Absent); Urine Specific Gravity 1.015 (1.010-1.030); Urine Squamous Epithelial Cell Present (Absent); Urine Urobilinogen Negative (Negative); Urine White Blood Cell Trace(0-5/hpf) (Absent)
[2018-07-27] MEDS ORDERED: NS 0.9% 1000 ML** 1,000 ML IV ONE (12:15)
[2018-07-27] MEDS ORDERED: Docusate CAP* 100 MG PO PRN (13:24)
[2018-07-27] MEDS ORDERED: Acetaminophen TAB* 325 MG PO PRN (13:30)
[2018-07-27] MEDS ORDERED: Dextrose 50% Syringe 50 ML* 25 GM/50 ML SYRINGE IV PUSH PRN (13:54)
[2018-07-27] MEDS ORDERED: PROCHLORPERAZINE INJ 5 MG/ML 2 ML VIAL IV PRN (13:55)
[2018-07-27] MEDS: NS 0.9% 1000 ML** 1,000 ML IV SCH ×3 (14:04→18:43)
[2018-07-27 14:07] LABS: ABS Basophils 0.1 10^3/ul (0-0.2); ABS Eosinophils 0 10^3/ul (0-0.6); ABS Lymphocytes 0.7 10^3/ul (1.0-4.8); ABS Neutrophils 9.2 10^3/ul (1.5-7.7); ABS Nucleated RBC 0 10^3/ul; Eosinophil % 0 %; Hematocrit 42 % (42-52); Lymphocyte % 6.6 %; Mean Corpuscular HGB Conc 33 g/dl (31-36); Mean Corpuscular Hemoglobin 31 pg (27-31); Mean Corpuscular Volume 92 fL (80-94); Mean Platelet Volume 8.4 fL (7.4-10.4); Nucleated Red Blood Cells % 0; Platelet Count 119 10^3/ul (150-450); Red Blood Count 4.57 10^6/ul (4.00-5.40); Red Cell Distribution Width 15 % (10.5-15)
[2018-07-27 14:15] LABS: Magnesium 1.9 mg/dL (1.9-2.7)
[2018-07-27 14:25] LABS: Albumin 3.6 g/dL (3.2-5.2); Albumin/Globulin Ratio 1.4 (1-3); BUN/Creatinine Ratio 22.9 (8-20); C Reactive Protein 17.57 mg/L (<8.01); Calcium 8.5 mg/dL (8.6-10.3); EGFR Non-African American 108.2 (>60); Globulin 2.5 g/dL (2-4); Total Bilirubin 1.1 mg/dL (0.2-1.0); Total Protein 6.1 g/dL (6.4-8.9)
[2018-07-27 14:40] LABS: Troponin I 8.09 ng/mL (<0.04)
--- NOTE | 2018-07-27 15:16 | HP ---
CC: Dr. Ihsan Arguelles; Dr. Urias; Dr. Francis HISTORY AND PHYSICAL: DATE OF ADMISSION: 07/27/18 TIME OF EVALUATION: 12:44 p.m. PRIMARY CARE PROVIDER: Dr. Ihsan Arguelles. ONCOLOGIST: Dr. Urias. PRESCHOOL DIRECTOR: Dr. Francis. CHIEF COMPLAINT: "I don't fell well." HISTORY OF PRESENT ILLNESS: Mr. Yuen is an 82-year-old gentleman with a past medical history of coronary artery disease; status post 4-vessel CABG in 2016, type 2 diabetes, paroxysmal atrial fibrillation, ischemic cardiomyopathy, hypertension, hyperlipidemia, diverticulosis who presented to the emergency room with complaints of feeling poorly. The patient states he was in his usual state of health until yesterday in the afternoon. He states that around 3, he started to have body aches, malaise, low-grade fever. He went home early and states that the symptoms persisted and were followed by cough and chest congestion. This morning, he felt that the symptoms were even worse. He had some diarrhea and at that point, he felt he should come to the emergency room for further evaluation. 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 In the emergency room, he did have 1 episode of emesis. PAST MEDICAL HISTORY: 1. Coronary artery disease, status post CABG in 2016 (CHANDLER to LAD, SVG to ramus , SVG to PDA, and SVG to RPL branch). 2. Ischemic cardiomyopathy with last ejection fraction of 35% to 40% in 2017. 3. Type 2 diabetes. 4. Hypertension. 5. Hyperlipidemia. 6. Mantle cell lymphoma on the groin, chemotherapy with acalabrutinib. MEDICATION LIST: 1. Acalabrutinib 100 mg p.o. b.i.d. 2. Aspirin 81 mg p.o. daily. 3. Atorvastatin 40 mg p.o. at bedtime. 4. Clopidogrel 75 mg p.o. daily. 5. Colace 100 mg p.o. t.i.d. as needed for constipation. 6. Finasteride 5 mg p.o. daily. 7. Lisinopril 2.5 mg p.o. daily. 8. Metoprolol tartrate 25 mg p.o. b.i.d. 9. Januvia 100 mg p.o. daily. 10. Tamsulosin 0.4 mg p.o. daily. ALLERGIES: No known drug allergies. FAMILY HISTORY: Positive for hypertension, hyperlipidemia, coronary artery disease, type 2 diabetes. SOCIAL HISTORY: The patient quit smoking more than 15 years ago. Denies history of alcohol, recreational drugs. He is a . Lives by himself. 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 Surrogate decision maker is his daughter, Aislinn Pretty , phone number is . REVIEW OF SYSTEMS: A 14-point review of systems was performed and all the pertinent negatives and positives are in the HPI. PHYSICAL EXAMINATION GENERAL: The patient is a pleasant elderly gentleman, sitting up on the ED stretcher, not in acute distress. VITAL SIGNS: Temperature 100.2, heart rate is 103, respiratory rate is 25, oxygen saturation is 93% on 4 L, blood pressure is 102/59. HEENT: Pupils are equal. Moist mucous membranes. CHEST: Breath sounds bilaterally with no added sounds. CVS: Normal S1 and S2. Regular rate and rhythm. ABDOMEN: Soft. Bowel sounds are present. EXTREMITIES: No edema. NEURO: He is alert and oriented x3. Able to move all 4 extremities. DIAGNOSTIC STUDIES/LAB DATA: The patient had a CBC that showed a WBC of 10, hemoglobin of 13.4, hematocrit of 41, platelets of 116 with 85% neutrophils. INR 0.97. Chemistry showed a sodium of 140, potassium 4.0, chloride of 106, bicarb of 24, BUN of 19, creatinine of 0.85, glucose of 118. Lactic acid is 1.3. Calcium is 9.4. LFTs showed a total bilirubin of 1.1, AST of 15, ALT of 11, alk phos of 61. CPK of 61. Troponin is 0.04. CRP is 5.89. BNP is 335. Urinalysis showed 1+ ketones, 1+ blood, and squamous epithelial cells are present. Influenza A was positive. Chest x-ray film reviewed by me showed mild prominence of the interstitial markings, possibly artifactual due to underinflation of the lungs or this may indicate mild congestive heart failure. EKG done on 07/27/18 at 8:02 a.m. showed sinus rhythm at 110 beats per minute with left bundle-branch block. Repeat EKG at 12:11 showed no significant change as well as another one done at 12:12. The left bundle-branch block was already present in 2017. ASSESSMENT AND PLAN: Mr. Yuen is an 82-year-old male with a past medical history of coronary artery disease; status post CABG, hypertension, hyperlipidemia, diabetes who presented to the emergency room with complaints of low-grade fever, malaise, cough, chest congestion, found to have influenza. 1. Sepsis. The patient meets sepsis criteria with tachycardia and tachypnea and the source is influenza. The patient's blood pressure was on the softer side in the emergency room with 1 mean blood pressure of 54 that recovered quickly. This does not represent septic shock. The patient took his metoprolol and lisinopril and he was dehydrated when he arrived to the emergency room. He seemed to be doing better after fluid resuscitation but his condition continues to decline. 2. Influenza A. We will continue Tamiflu and supportive care. 3. Acute hypoxemic respiratory failure: he seems to be progressing to ARDS. Will admit to ICU for Vapotherm. 4. Coronary artery disease. The patient has minimal troponin elevation that could be secondary to increased demand in the setting of influenza. He has no complaints of chest pain. I am going to continue his aspirin, Plavix, atorvastatin, and metoprolol, but with holding parameters due to his softer blood pressure. His EKG shows only a left bundle-branch block and we are going to trend his troponins. 5. Type 2 diabetes. I am going to hold his Januvia for now and he is going to have fingersticks with a lispro sliding scale. 6. Episode of ventricular tachycardia. The patient had 4 beats of ventricular tachycardia in the emergency room, asymptomatic. His potassium is normal at this time and I am going to check his magnesium. I am going to continue his metoprolol with holding parameters. 7. Mantle cell lymphoma. I discussed the case with oncologist (Dr. Carrillo) and his recommendation was to hold the patient's chemotherapy in the setting of active infection. The patient already has a followup appointment scheduled to see Dr. Urias next week. 8. DVT prophylaxis. The patient has a score of 5 on the DVT Prophylaxis Risk Assessment Guide and he will be started on subcutaneous heparin and SCDs. 9. Code status was discussed with the patient and he wishes to be a full code. TIME SPENT: Approximately 60 minutes Critical care time were spent with patient interview, medical records review, physical examination to complete the admission; more than half of this time was spent [id number] with the patient and coordination of care. [id number]/[facility] #: [id number] ZAIRA
--- NOTE | 2018-07-27 16:21 | HP ---
HISTORY AND PHYSICAL: ADDENDUM: The patient's condition continued to decline in the emergency room. He became more hypoxic and was transitioned to Vapotherm. Laboratory tests were repeated and his troponin went up to 8.09 with an AST that went up from 15 to 66. BNP went up to 845. His chest x-ray was also repeated and it shows significant pulmonary interstitial edema. This could be secondary to fluid that the patient received ; he got 3 L of fluid so far, so I am concerned that this congestion may actually represent progression to ARDS. The patient will be admitted to the intensive care unit. A consultation was requested with Dr. Costa. The patient remains chest pain-free. His EKG shows his known left bundle- branch block, but his troponin is now up to 8. A cardiology consultation was requested with Dr. Napoles. The patient's daughter, Aislinn Pretty, , was also called and updated about his change in condition. [id number]/[facility] #: [id number] MTDD
[2018-07-27 16:46] LABS: Troponin I 13.22 ng/mL (<0.04)
[2018-07-27] MEDS ORDERED: Heparin DRIP 25,000 UNITS(*) 25,000 UNITS/500 ML BAG IV SCH (17:15)
[2018-07-27] MEDS ORDERED: Perflutren Lipid Microsphere* 3 ML VIAL ONE (18:10)
[2018-07-27] MEDS: Heparin VIAL(*) 5000 UNITS/ML VIAL (FIVE THOUSAND) IV PRN (18:26)
[2018-07-27] MEDS: Metoprolol Tartrate TAB* 25 MG PO SCH ×2 (18:26→19:29)
--- NOTE | 2018-07-27 18:36 | PN ---
Progress Note - Progress Note Date of Service: 07/27/18 Note: 82 y/o male admitted with probable influenza pneumonia and severe hypoxemia, which did not respond adequastely to high-flow nasal O2 but has improved with BiPAP. Other problem is increase in troponin level from 0.04 to 13 today - has Hx coronary bypass surgery 2 years ago, but the most likely etiology is demand ischemia vs myocarditis. Cardiology service following, and we have started a heparin drip and beta blockers. LVEF < 20% (!) Plan is intubation, if needed (patient is a full code). Patient's daughter is on her way from [place].
[2018-07-27] MEDS: Atorvastatin* 40 MG TAB PO SCH (18:42)
[2018-07-27] MEDS: Insulin LISPRO* 1 UNITS UNIT SUBCUT SCH ×2 (18:43→20:58)
--- NOTE | 2018-07-27 20:20 | ECHO ---
Patient: AGNIESZKA CHARLES [facility] Rec#: [id number] : 1935 Date: 07/27/2018 Age: 82y Height: 170 cm / 66.9 in Weight: 86.2 kg / 190.0 lbs Sex: M BSA: 2 Room#: ICU 2 Admit Date#: 07/27/2018 Type: Inpatient Referring: Ingris Hurt MD Reading: Alpa Napoles MD Stamping Die Maker: Glenda Leonard RN RDCS Transthoracic Echocardiogram Indication: Myocardial infarction BP: 116/74 HR: 97 Rhythm: NSR Findings History: CAD, CABG, DM, HTN, former smoker Technical Comments: The study is technically difficult. The study is technically limited due to poor acoustic windows. The study was technically limited due to the patient's inability to lay in the left lateral decubitus position. Left Ventricle: The left ventricular chamber size is mildly dilated. Mild to moderate concentric left ventricular hypertrophy is observed. There is global hypokinesis of the left ventricle with minor regional variation.Base contracts best, septum is dyskinetic c/w LBBB and prior CABG. There is severely decreased left ventricular systolic function. The estimated ejection fraction is 20-25%. Abnormal left ventricular diastolic function is observed. Left Atrium: The left atrial chamber size is normal. Right Ventricle: The right ventricle is not well visualized. The right ventricular cavity size is normal. The right ventricular global systolic function is low normal. Right Atrium: The right atrial cavity size is normal. Aortic Valve: The aortic valve leaflets are mildly thickened. There is a trace of aortic regurgitation. There is no evidence of aortic stenosis. Mitral Valve: The mitral valve leaflets are mildly thickened. There is no evidence of mitral regurgitation. There is no evidence of mitral stenosis. Tricuspid Valve: The tricuspid valve structure is not well visualized. There is trace tricuspid regurgitation. Unable to estimate the right ventricular systolic pressure. Pulmonic Valve: The pulmonic valve structure is not well visualized. There is a trace pulmonic regurgitation. There is no pulmonic stenosis. Pericardium: There is no significant pericardial effusion. Aorta: There is no dilatation of the ascending aorta. The aortic arch is not well visualized. There is mild dilatation of the aortic root. Pulmonary Artery: The main pulmonary artery is not well visualized. Venous: The venous system is not well visualized. The inferior vena cava is not visualized. Contrast: Definity was used to optimize study. A total of 5 ml of diluted Definity was given IV. Conclusions The study is technically difficult. The left ventricular chamber size is mildly dilated. Mild to moderate concentric left ventricular hypertrophy. There is severe global hypokinesis of the left ventricle with minor regional variation. The estimated ejection fraction is 20-25%. Abnormal left ventricular diastolic function is observed. The right ventricular global systolic function is low normal. There is a trace of aortic regurgitation. There is trace tricuspid regurgitation. Compared with prior echo of 03/07/17, EF has decreased further, previously 35-40%, LVH newly described, valve function is stable. Measurements Name Value Normal Range RAd ISD 4CH 3.9 cm (3.4 - 4.9) RA (A4C)W 3.4 cm (2.9 - 4.6) IVSd (2D) 1.3 cm (0.6 - 1) LVPWd (2D) 1.2 cm (0.6 - 1) LVIDd (2D) 5.8 cm (3.6 - 5.4) LVIDs (2D) 5.2 cm - LV FS (2D) 10 % (25 - 45) Aortic Annulus 1.9 cm (1.4 - 2.6) Ao root diameter (2D) 3.7 cm (2.1 - 3.5) Ascending Ao 3.3 cm (2.1 - 3.4) LA dimension (AP) 2D 3.4 cm (2.3 - 3.8) LAd ISD 4CH 4.8 cm (2.9 - 5.3) LA ISD 4CH W 4 cm (2.5 - 4.5) Name Value Normal Range MV E-wave Vmax 0.73 m/sec - MV deceleration time 137 msec - MV A-wave Vmax 0.67 m/sec - MV E:A ratio 1.1 ratio - LV septal e' Vmax 0.06 m/sec - LV lateral e' Vmax 0.06 m/sec - LV E:e' septal ratio 12.2 ratio - LV E:e' lateral ratio 12.2 ratio - Name Value Normal Range AV Vmax 0.93 m/sec - AV VTI 13.8 cm - AV peak gradient 3 mmHg - AV mean gradient 2 mmHg - LVOT Vmax 0.64 m/sec - LVOT VTI 9.3 cm - LVOT peak gradient 2 mmHg - LVOT mean gradient 1 mmHg - Name Value Normal Range PV Vmax 0.5 m/sec -
[2018-07-27] MEDS ORDERED: NS 0.9% 500 ML* 500 ML IV ONE (20:35)
[2018-07-27] MEDS: Oseltamivir CAP* 75 MG CAP PO SCH (20:59)
[2018-07-27] MEDS ORDERED: Succinylcholine* 20 MG/ML 10 ML VIAL ONE (21:43)
[2018-07-27] MEDS ORDERED: Propofol* 100 ML ONE (21:44)
[2018-07-27] MEDS ORDERED: Norepinephrine 16MCG/ML IVPRE* 4,000 MCG/250 ML BAG IV ONE (21:46)
[2018-07-27] MEDS ORDERED: Heparin VIAL(*) 5000 UNITS/ML VIAL (FIVE THOUSAND) SUBCUT SCH (22:00)
[2018-07-27] MEDS ORDERED: Etomidate* 2 MG/ML 20 ML VIAL (40 MG) ONE (22:02)
[2018-07-27] MEDS ORDERED: Midazolam* 1 MG/ML 10 ML VIAL (10 MG) ONE (22:02)
[2018-07-27] MEDS ORDERED: Heparin(*) 1000 UNIT/ML 10 ML VIAL CATH LAB IV ONE (22:08)
[2018-07-27] MEDS ORDERED: VERAPAMIL 2.5 MG/ML 2 ML VIAL ** 5 mg/2 ml ONE (22:08)
[2018-07-27] MEDS ORDERED: Heparin 2 UNITS/ML IVPREMIX* 3,000 ML IV ONE (22:08)
[2018-07-27] MEDS ORDERED: nitroGLYCERIN DRIP* 25,000 MCG/250 ML BTL ONE ×2 (22:08→22:10)
[2018-07-27] MEDS ORDERED: Lidocaine 1% INJ* 10 MG/ML 30 ML SDV ONE ×2 (22:09→22:10)
[2018-07-27] MEDS ORDERED: Midazolam* 1 MG/ML 5 ML VIAL (5 MG) ONE (22:16)
[2018-07-27] MEDS ORDERED: fentaNYL* 50 MCG/ML 2 ML VIAL (100 MCG VIAL) ONE (22:16)
[2018-07-27] MEDS ORDERED: Iohexol 350 (CONTRAST) 200 ML MDV IV ONE (22:17)
--- NOTE | 2018-07-27 23:47 | CONS ---
CC: Dr. Antione Francis; Ihsan Arguelles DO CONSULTATION REPORT: DATE OF CONSULT: 07/27/18 REASON FOR CONSULTATION: Elevated troponins. CHIEF COMPLAINT: Shortness of breath. HISTORY OF PRESENT ILLNESS: Mr. Yuen is an 82-year-old gentleman followed by my partner, Dr. Francis with a history of bypass surgery in 2015 and a combination of ischemic and nonischemic cardiomyopathy (left bundle-branch block ). The patient was just seen by my partner, Dr. Francis, on 07/11/18, was without complaints and exam was unremarkable. He was felt to be stable. The patient then stated that 2 days ago, he had some chest and elbow pain with exertion. He is vague about it. It does not sound like this is similar to his presentation pre-bypass. This is no longer present. Yesterday, he developed diarrhea in the morning and this was followed with nausea, vomiting, and shortness of breath. He presented to the emergency room and was tested positive for influenza A and initial troponins were elevated. The patient is in the ICU, was placed on BiPAP and states his breathing is more comfortable now on the BiPAP, he is able to talk. The patient has a past medical history of coronary artery disease. His notes prior to bypass documented he had had increased exertional dyspnea and chest pressure for a month prior to his presentation at [facility]. He then presented to [facility] with severe substernal chest discomfort. Subsequent cardiac catheterization showed severe distal left main stenosis and 3-vessel disease. He underwent bypass surgery of the CHANDLER to the LAD, saphenous vein graft to MARIYA, saphenous vein graft to the posterior lateral branch, and saphenous vein graft to the right PDA. PAST MEDICAL HISTORY: 1. Coronary disease. 2. Bladder cancer. 3. Cardiomyopathy, ischemic and nonischemic. Echo on 05/12/18 showed an ejection fraction 35-40% and PA pressure at that time was 55 mmHg. In May 2017, nuclear ventriculogram, however, estimated his ejection fraction at 25% and showed a large posterolateral and inferior infarct. No reversible ischemia was described. 4. Left bundle-branch block. 5. Dyslipidemia. 6. Paroxysmal atrial fibrillation (post bypass). 7. Type 2 diabetes. 8. Hypertension. 9. Hard of hearing. 10. Mantle cell lymphoma, 2017. 11. PVCs noted on Holter. OUTPATIENT MEDICATIONS: As of 07/11/18 included: 1. Aspirin 81 mg a day. 2. Atorvastatin 40 mg a day. 3. Calquence 100 mg. 4. Plavix 75 mg a day. 5. Colace. 6. Finasteride 5 mg a day. 7. Januvia 100 mg daily. 8. Lisinopril 2.5 mg a day. 9. Toprol-XL 25 mg a day. 10. Tamsulosin 0.4 mg a day. ALLERGIES: He had no known drug allergies. INPATIENT MEDICATIONS: Current inpatient medications include: 1. Tylenol p.r.n. 2. Aspirin. 3. Lipitor. 4. Plavix. 5. Colace. 6. Proscar. 7. Heparin drip. 8. Lopressor 25 mg b.i.d. 9. Tamiflu 75 mg b.i.d. 10. Compazine p.r.n. 11. Sodium. 12. Flomax. FAMILY HISTORY: Positive for coronary disease. His grandmother of a heart attack. His father had a history of kidney failure and of it. Mother had a history of Alzheimer's and cancer and he had a sister who of breast cancer. SOCIAL HISTORY: The patient is , lives alone, has a supportive daughter in [place]. He is a distant smoker, quit 15 years ago. No history of alcohol use or recreational drug abuse. REVIEW OF SYSTEMS: As above. Was feeling well until about 48 hours ago when he developed chest pain and elbow pain and then yesterday developed diarrhea, rhinorrhea, but no history of cough, fevers, chills, or diaphoresis. He has had nausea, vomiting, and anorexia. All other 15-point review of systems was negative. PHYSICAL EXAMINATION: Vitals: Blood pressure 92/58, pulse is 98 to the low 100s and regular, respiratory rate 25 to 30, oxygen saturation on BiPAP 100%. T -max in the hospital is 100.2. General Appearance: Elderly gentleman, BiPAP on , sitting upright and leaning forward in the bed, eyes closed and tachypneic, but does not appear in severe distress. Psychologically, pleasant, cooperative , easily opens his eyes immediately if somebody walks in the room talking. Neurologically, awake, alert, oriented to person and place. I did not check for time. Answers questions, responds to commands appropriately, follows commands well. Skin: Warm, dry without appreciable cyanosis of the lips and nails, but with the BiPAP on. HEENT: Mucous membranes not observed. Pupils equal and round. Neck: With use of accessory muscles, but no appreciable increase in JVP, although difficult exam. Breath sounds had a few crackles. No dullness to percussion. No wheezing or rhonchi. Coronary: S1, S2 regular, tachycardic. I did not appreciate murmurs, rubs, or heaves. Abdomen: Active bowel sounds, nontender. Lower extremities were free of edema and warm. DIAGNOSTIC STUDIES/LAB DATA: The patient's echocardiogram done tonight shows a dilated left ventricle with severe global hypokinesis, dyskinesis of the septum consistent with a left bundle-branch block and prior bypass and ejection fraction of 20-25%. His right ventricle shows low-normal systolic function. There was no pericardial effusion. A 12-lead ECG on arrival, 07/27/18, at 0800 shows sinus tachycardia 110 beats a minute with a left bundle-branch block, wide and significant ST depression, and inverted T-waves in the lateral leads. When this is compared with his EKG of , the T-waves were inverted, but the ST depression of V3 through V6 is new. He also has ST elevation in the inferior leads that is more pronounced. EKG done at 1413 shows improvement in the lateral ST depression and the inferior STs appear close to prior baseline. Chest x-ray reviewed personally and shows diffuse infiltrates throughout the lung benítez consistent with ARDS, although a component of congestive heart failure cannot be ruled out. Labs show initial white count of 10. At 2 o'clock, the white count was 11, hemoglobin 14, hematocrit 42, platelets 119. Sedimentation rate on arrival was 8, INR 0.97, PTT 31. Sodium 140, potassium 4.0, chloride 111, bicarb 21, BUN 16 , creatinine 0.7, glucose 129, calcium 8.5, bilirubin 1.6, AST 66, ALT 15. Troponin #1, 8.1; troponin #2, 13.2; troponin #3, 34. BNP elevated, 335 initially and now 845. Urinalysis: 1+ ketones, 1+ blood, and serology was positive for influenza A. ASSESSMENT AND PLAN: In summary, Mr. Yuen is an 82-year-old gentleman who underwent a triple-vessel bypass surgery in March 2016 and was stable in the office on 07/11/18. He now presents with a flu and congestive heart failure, but additionally has EKG changes showing acute ischemia and a bump in troponins. I am suspicious of a circumflex lesion and there is very likely additionally demand ischemia. His echo is showing global hypokinesis and this may represent a component of myocarditis and/or significant demand ischemia in addition to the concern for a large-vessel disease. Early, we had already started him on a heparin drip. His vitals are not allowing for additional beta-jaron. I think he is a high-risk candidate for intervention, though we will contact Interventional Cardiology to review options. We will work with the die cleaner in terms of continuation of BiPAP versus intubation. Decisions regarding respiration should be made on the basis of best options to decrease the work and stress on the heart. This patient is an extremely high-risk patient and he is at risk for not making it through this acute presentation. Additional recommendations will be made pending his clinical course. ADDENDUM: TROPS increased to 33, bp decreased as low as 78. Extensive discussions were had with the patient, the patient's daughter, Dr Fito Costa (ICU) and Dr Bergeron (interventional cardiology). We intubated the patient, started levophed with improved hemodynamics. The patient went to the orthodontic lab technician with tentative plans for IABP. Cath showed good CHANDLER, occluded vein grafts, low LVEDP and low right sided pressures. The decision was made to leave in [place]/right heart cath and arterial line for hemodynamic monitoring in ICU. As improved on ventilator and pressors held off on IABP. The above findings and decisions were discussed with the patient's daughter. [id number]/[facility] #: [id number] ZAIRA
[2018-07-28] MEDS ORDERED: Propofol* 100 ML ONE (01:20)
[2018-07-28] MEDS: NS 0.9% 1000 ML** 1,000 ML IV SCH (03:06)
[2018-07-28] MEDS: Norepinephrine 16MCG/ML IVPRE* 4,000 MCG/250 ML BAG IV SCH ×2 (03:46→09:42)
[2018-07-28] MEDS: Propofol* 100 ML IV SCH ×6 (05:07→22:57)
[2018-07-28 06:18] LABS: ABS Basophils 0 10^3/ul (0-0.2); ABS Eosinophils 0 10^3/ul (0-0.6); ABS Lymphocytes 0.7 10^3/ul (1.0-4.8); ABS Monocytes 1.3 10^3/ul (0-0.8); ABS Neutrophils 17.7 10^3/ul (1.5-7.7); ABS Nucleated RBC 0 10^3/ul; Eosinophil % 0 %; Hematocrit 41 % (42-52); Hemoglobin 13.4 g/dl (14.0-18.0); Lymphocyte % 3.6 %; Mean Corpuscular HGB Conc 33 g/dl (31-36); Mean Corpuscular Hemoglobin 30 pg (27-31); Mean Corpuscular Volume 93 fL (80-94); Mean Platelet Volume 9.4 fL (7.4-10.4); Nucleated Red Blood Cells % 0; Platelet Count 125 10^3/ul (150-450); Red Blood Count 4.44 10^6/ul (4.00-5.40); Red Cell Distribution Width 16 % (10.5-15); White Blood Count 19.7 10^3/ul (3.5-10.8)
[2018-07-28 06:33] LABS: BUN/Creatinine Ratio 23.4 (8-20); Calcium 8.2 mg/dL (8.6-10.3); EGFR African American 93.2 (>60); Potassium 4.1 mmol/L (3.5-5.0)
[2018-07-28 06:48] LABS: Troponin I 40.66 ng/mL (<0.04)
[2018-07-28] MEDS: Chlorhexidine MOUTHWASH 0.12%* 15 ML UDC TOPICAL SCH ×4 (08:42→20:06)
[2018-07-28] MEDS: Tamsulosin CAP* 0.4 MG PO SCH (08:42)
[2018-07-28] MEDS: Oseltamivir CAP* 75 MG CAP PO SCH ×2 (08:42→21:30)
[2018-07-28] MEDS: Metoprolol Tartrate TAB* 25 MG PO SCH ×2 (08:43→20:50)
[2018-07-28] MEDS ORDERED: Finasteride TAB* 5 MG PO SCH (09:00)
[2018-07-28] MEDS: Insulin LISPRO* 1 UNITS UNIT SUBCUT SCH ×4 (10:41→21:31)
[2018-07-28] MEDS: Clopidogrel TAB* 75 MG PO SCH (10:48)
[2018-07-28] MEDS: Aspirin EC TAB* 81 MG TAB.EC PO SCH (10:48)
--- NOTE | 2018-07-28 11:25 | PN ---
Subjective Date of Service: 07/28/18 - CC: sob Interval History: Pateint intubated, sedated. BP good, getting norepi weaned. Son and daughter in the room, questions answered. Medications Active Medications: Acetaminophen (Tylenol Tab*) 650 mg PO Q6H PRN PRN Reason: pain/fever Aspirin (Aspirin Ec Tab*) 81 mg PO DAILY [facility] Last Admin: 07/28/18 10:48 Dose: 81 mg Atorvastatin Calcium (Lipitor*) 40 mg PO QPM [facility] Last Admin: 07/27/18 18:42 Dose: 40 mg Chlorhexidine Gluconate (Peridex Mouth Wash 0.12%*) 15 ml TOPICAL Q4H [facility] Last Admin: 07/28/18 08:42 Dose: 15 ml Clopidogrel Bisulfate (Plavix Tab*) 75 mg PO DAILY [facility] Last Admin: 07/28/18 10:48 Dose: 75 mg Dextrose (D50w Syringe 50 Ml*) 12.5 gm IV PUSH .FOR FS < 60 - SS PRN PRN Reason: FS < 60 Docusate Sodium (Colace Cap*) 100 mg PO TID PRN PRN Reason: CONSTIPATION Finasteride (Proscar Tab*) 5 mg PO DAILY [facility] Last Admin: 07/28/18 08:42 Dose: 5 mg Heparin Sodium (Porcine) (Heparin Vial(*)) 0 units IV .PER PROTOCOL PRN PRN Reason: BOLUSES FOR HEPARIN DRIP Last Admin: 07/27/18 18:26 Dose: 4,000 units Heparin Sodium/Dextrose (Heparin Drip 25,000 Units(*)) 25,000 units in 500 mls @ 0 mls/hr IV PER RATE [facility]; Protocol Last Admin: 07/27/18 18:27 Dose: 20 mls/hr Sodium Chloride (Ns 0.9% 1000 Ml) 1,000 mls @ 25 mls/hr IV .per rate [facility] Last Admin: 07/28/18 03:06 Dose: 25 mls/hr Norepinephrine Bitartrate (Levophed 16 Mcg/Ml Premix Bag*) 4,000 mcg in 250 mls @ 18.75 mls/hr IV .INITIAL RATE [facility]; Protocol Last Admin: 07/28/18 09:42 Dose: 46.9 mls/hr Propofol (Diprivan*) 100 mls @ 24.127 mls/hr IV .(Initial Rate) MARQUISE; Protocol Last Admin: 07/28/18 08:48 Dose: 26.8 mls/hr Insulin Human Lispro (Humalog*) 0 units SUBCUT ACHS MARQUISE; Protocol Last Admin: 07/28/18 10:41 Dose: 2 units Metoprolol Tartrate (Lopressor Tab*) 25 mg PO BID [facility] Last Admin: 07/28/18 08:43 Dose: Not Given Oseltamivir Phosphate (Tamiflu Cap*) 75 mg PO BID [facility] Stop: 07/31/18 21:01 Last Admin: 07/28/18 08:42 Dose: 75 mg Prochlorperazine Edisylate (Compazine Inj*) 5 mg IV Q6H PRN PRN Reason: NAUSEA/VOMITING Last Admin: 07/27/18 14:16 Dose: 5 mg Tamsulosin HCl (Flomax Cap*) 0.4 mg PO DAILY [facility] Last Admin: 07/28/18 08:42 Dose: 0.4 mg Objective Vital Signs: Temp Pulse Resp BP Pulse Ox 99.1 F 85 24 114/68 94 07/28/18 10:01 07/28/18 10:01 07/28/18 10:28 07/28/18 10:00 07/28/18 10:01 Intake & Output 07/26/18 07/27/18 07/28/18 07/29/18 04:59 04:59 04:59 04:59 Intake Total 3928 820 Output Total 650 502 Balance 3278 318 Weight 197 lb 195 lb 11.2 oz Intake: IV Fluids 3898 68 NS (0.9%) 608 68 Medicated IV 752 CC - Norepinephrine/ 347 Levophed CC - Propofol/Diprivan 198 Heparin 207 Oral 30 Output: Urine 250 Hassan 400 502 ADLs: Meal Record Start: 07/27/18 15: 32 Freq: 09,13,18 Status: Active Protocol: Created 07/27/18 15:32 System (Rec: 07/27/18 15:32 System [id number]) Document 07/27/18 18:00 [id number] (Rec: 07/27/18 19:36 [id number] ICU-C56) Intake and Output Start: 07/27/18 06: 12 Freq: Status: Active Protocol: Created 07/27/18 06:12 System (Rec: 07/27/18 06:12 System [id number]) Intake and Output Start: 07/27/18 15: 32 Freq: Q1HR Status: Active Protocol: Created 07/27/18 15:32 System (Rec: 07/27/18 15:32 System ICU-M25) Document 07/27/18 16:00 [id number] (Rec: 07/27/18 19:34 [id number] ICU-C56) Document 07/27/18 17:00 [id number] (Rec: 07/27/18 19:35 [id number] ICU-C56) Document 07/27/18 18:00 [id number] (Rec: 07/27/18 19:36 [id number] ICU-C56) Document 07/27/18 19:00 [id number] (Rec: 07/27/18 19:38 [id number] ICU-C56) Document 07/28/18 01:15 [id number] (Rec: 07/28/18 04:08 [id number] ICU-C15) Document 07/28/18 05:00 [id number] (Rec: 07/28/18 05:09 [id number] ICU-C15) Document 07/28/18 05:57 [id number] (Rec: 07/28/18 05:58 [id number] ISDEMO-M03 ) Document 07/28/18 07:00 [id number] (Rec: 07/28/18 08:24 [id number] ISDEMO-M03 ) Document 07/28/18 08:00 [id number] (Rec: 07/28/18 08:24 [id number] ISDEMO-M03 ) Document 07/28/18 09:00 [id number] (Rec: 07/28/18 10:26 [id number] ISDEMO-M03 ) Document 07/28/18 10:00 [id number] (Rec: 07/28/18 10:26 [id number] ISDEMO-M03 ) RT Oxygen per Hr Q: C.O2PH O2 Per Hour 12 O2 Per Hour 12 Infusion Flowsheet Infusion(s) Flowsheet Start: 07/27/18 15: 32 Freq: 06,14,22 Status: Active Protocol: Document 07/28/18 04:18 [id number] (Rec: 07/28/18 04:18 [id number] ICU-C15) IV Fluids/IVPB Intakes NS (0.9%) Intake, IV Fluids Volume Infused 608 Document 07/28/18 05:51 [id number] (Rec: 07/28/18 05:52 [id number] ICU-C15) IV Fluids/IVPB Intakes NS (0.9%) Intake, IV Fluids Volume Infused 68 Medicated Drip Intake Heparin New Bag No Medicated Infusion Type Continuous Medicated Drip Volume Infused 207 CC - Norepinephrine/Levophed New Bag No Medicated Infusion Type Continuous Medicated Drip Volume Infused 347 CC - Propofol/Diprivan New Bag No Medicated Infusion Type Continuous Medicated Drip Volume Infused 198 Oxygen Devices in Use Now: Endotracheal Tube, Mechanical Ventilator Appearance: Elederly male, tubed, sedeated, lying supine, appears comfortable. Eyes: No Scleral Icterus Ears/Nose/Mouth/Throat: Clear Oropharnyx, Mucous Membranes Moist Neck: Trachea Midline, No Thyroid Enlargement, Masses Respiratory: Symmetrical Chest Expansion and Respiratory Effort - coarse rales vs. rhonci and mechanincal ventilator sounds. Cardiovascular: RRR - no murmurs, ventilator impacts exam. Abdominal: NL Sounds; No Tenderness; No Distention Extremities: No Edema, No Clubbing, Cyanosis Skin: No Rash or Ulcers Neurological: - - sedated, neuro exam not performed. Lines/Tubes/Other Access: Clean, Dry and Intact Endotracheal Tube, Clean, Dry and Intact Hassan, Clean, Dry and Intact Peripheral IV, Clean, Dry and Intact Central Line, Clean, Dry and Intact Arterial Line Laboratory Results: 07/28/18 05:45 07/28/18 05:45 INR (Anticoag Therapy) 0.97 (0.77-1.02) 07/27/18 07:32 APTT 51.7 seconds (26.0-36.3) H 07/28/18 09:03 Total Bilirubin 1.10 mg/dL (0.2-1.0) H 07/27/18 13:58 AST 66 U/L (13-39) H 07/27/18 13:58 ALT 15 U/L (7-52) 07/27/18 13:58 Alkaline Phosphatase 59 U/L (34-104) 07/27/18 13:58 B-Natriuretic Peptide 845 pg/mL (<=100) H 07/27/18 13:58 Total Protein 6.1 g/dL (6.4-8.9) L 07/27/18 13:58 Albumin 3.6 g/dL (3.2-5.2) 07/27/18 13:58 Globulin 2.5 g/dL (2-4) 07/27/18 13:58 Albumin/Globulin Ratio 1.4 (1-3) 07/27/18 13:58 07/27/18 07/27/18 07/27/18 07:32 13:58 16:10 Troponin I 0.04 H* 8.09 H* 13.22 H* 07/27/18 07/28/18 07/28/18 19:53 00:30 03:15 Troponin I 33.95 H* 50.91 H* 44.71 H* 07/28/18 07/28/18 05:45 08:25 Troponin I 40.66 H* 38.40 H* Diagnostic Imaging: ECHO 07/27/18: EF 25% Cath 07/27/18: Prelim/verbal report showed EF about 25%, global hypok and IW AK , Widely patent CHANDLER to LAD, all vein grafts occluded, LM disease confirmed. No evidence of acute occlusion found. Low ventricular pressures and wedge. CXR 07/27/18 post intubation: Increased densities, CHF and/or ARDS progressed. CXR 07/28/28: Improvement in infiltrates. EKG Data: ECG #1 07/27/09 8 AM showed acute ischemia with ST elevation inferior leads and ST depression lateral leads with LBBB ECG's since this all show NSR/ST, LBBB and ST's at prior baseline. Assessment/Plan 82 yo male with PMHx CABG, LBBB, moderate CM clinically stable until 1-2 days prior to admission. Admitted with Influenza A complicated by ischemia/NQMI, hypoxemia and infiltrates that are likely a combination of ARDS and CHF. The patient was decomensating last night with BP dropping, BiPAP supporting but tachypnic and working to breath with trops rising. Pt now s/p intubation, pressors and cath w/results as above, no evidence of acute infarct and surprisingly low intracardiac pressures. CAD: Trops peaked, continue heparin, plavix, ASA, metoprolol. Continue with supportive care of acute illness. No intervention planned. Trop elevation likely combination of demand/type 2 ischemia and possibly myocarditis. CM: Ischemic and LBBB and possible element of myocarditis. Continue metoprolol. As BP improves add ACEI or aldactone. May need Lasix as improves. bed bug exterminator options include PLANT UTILITY PERSON/PLANT UTILITY PERSON D (Biventricular pacing). If decompensates further can rediscuss ballon pump, but hold off for now. Hypotension: Continue norepinepherine. I stopped Flomax.
[2018-07-28] MEDS ORDERED: Piperacillin/Tazobac ADVAN(*) 3.375 GM in NS 0.9% 100 ML* 100 ML IVPB ONE (15:55)
[2018-07-28] MEDS ORDERED: Zosyn per Pharmacy* NOTE FOLLOW UP SCH (16:00)
--- NOTE | 2018-07-28 16:10 | PN ---
Date of Service: 07/28/18 Critical Care Services: Patient admitted yesterday with presumed influenza pneumonia - because of rapidly rising troponins (to 50), had cardiac cath last evening, which showed all vein grafts occluded, but no acute occlusion. EF was about 25%. Now has PA catheter in place: last measurements were PCWP = 7 mm Hg, CI = 3.5 L/min/m2, SVI = 35 cc/m2. Is currently on the ventilator and sedated with propofol. Has copious, foul- smelling secretions from ET tube. Vital Signs: Temp Pulse Resp BP SpO2 FiO2 100.4 F 106 16 111/65 94 40 Physical Exam: Gen:Unresponsive (on propofol) HEENT:OP clear Lungs: Scattered rhonchi - no crackles Cardiac: Reg rhythm Extremities:No cyanosis or edema Fluid Balance (Past 24 Hours): 07/28/18 06:59 Intake Total 4748 Output Total 907 Balance +3841 Weight 195 lb Intake: IV Fluids 3966 NS (0.9%) 676 Medicated IV 752 CC - Norepinephrine/ 347 Levophed CC - Propofol/Diprivan 198 Heparin 207 Oral 30 Output: Urine 250 Hassan 657 Labs: 07/27/18 07/27/18 07/27/18 16:10 18:55 19:53 Glucose 148 H Lactic Acid 1.5 Calcium Troponin I 13.22 H* 33.95 H* 07/27/18 07/27/18 07/28/18 20:52 23:00 00:30 ABG pH 7.33 L ABG pCO2 36 ABG pO2 90 ABG HCO3 20.1 ABG O2 Saturation 98.4 H ABG Base Excess -6.2 L Sodium Potassium Chloride Carbon Dioxide Anion Gap BUN Creatinine Est GFR ( Amer) Est GFR (Non-Af Amer) BUN/Creatinine Ratio Glucose POC Glucose (mg/dL) 172 H Glucose Meter Confirm Lactic Acid 1.6 Calcium Troponin I 07/28/18 07/28/18 07/28/18 00:30 00:30 03:15 WBC RBC Hgb Hct MCV MCH MCHC RDW Plt Count MPV Neut % (Auto) Lymph % (Auto) [place] % (Auto) Eos % (Auto) Baso % (Auto) Absolute Neuts (auto) Absolute Lymphs (auto) Absolute Monos (auto) Absolute Eos (auto) Absolute Basos (auto) Absolute Nucleated RBC Nucleated RBC % APTT 85.3 H ABG pH ABG pCO2 ABG pO2 ABG HCO3 ABG O2 Saturation ABG Base Excess Sodium Potassium Chloride Carbon Dioxide Anion Gap BUN Creatinine Est GFR ( Amer) Est GFR (Non-Af Amer) BUN/Creatinine Ratio Glucose POC Glucose (mg/dL) Glucose Meter Confirm Lactic Acid Calcium Troponin I 50.91 H* 44.71 H* 07/28/18 07/28/18 07/28/18 05:45 05:45 08:25 WBC 19.7 H RBC 4.44 Hgb 13.4 L Hct 41 L MCV 93 MCH 30 MCHC 33 RDW 16 H Plt Count 125 L MPV 9.4 Neut % (Auto) 89.9 Lymph % (Auto) 3.6 [place] % (Auto) 6.4 Eos % (Auto) 0 Baso % (Auto) 0.1 Absolute Neuts (auto) 17.7 H Absolute Lymphs (auto) 0.7 L Absolute Monos (auto) 1.3 H Absolute Eos (auto) 0 Absolute Basos (auto) 0 Absolute Nucleated RBC 0 Nucleated RBC % 0 APTT ABG pH ABG pCO2 ABG pO2 ABG HCO3 ABG O2 Saturation ABG Base Excess Sodium 137 Potassium 4.1 Chloride 110 Carbon Dioxide 21 L Anion Gap 6 BUN 22 Creatinine 0.94 Est GFR ( Amer) 93.2 Est GFR (Non-Af Amer) 77.0 BUN/Creatinine Ratio 23.4 H Glucose 192 H POC Glucose (mg/dL) Glucose Meter Confirm Lactic Acid Calcium 8.2 L Troponin I 40.66 H* 38.40 H* 07/28/18 07/28/18 07/28/18 08:46 09:03 09:03 WBC RBC Hgb Hct MCV MCH MCHC RDW Plt Count MPV Neut % (Auto) Lymph % (Auto) [place] % (Auto) Eos % (Auto) Baso % (Auto) Absolute Neuts (auto) Absolute Lymphs (auto) Absolute Monos (auto) Absolute Eos (auto) Absolute Basos (auto) Absolute Nucleated RBC Nucleated RBC % APTT 51.7 H ABG pH ABG pCO2 ABG pO2 ABG HCO3 ABG O2 Saturation ABG Base Excess Sodium Potassium Chloride Carbon Dioxide Anion Gap BUN Creatinine Est GFR ( Amer) Est GFR (Non-Af Amer) BUN/Creatinine Ratio Glucose POC Glucose (mg/dL) 70 Glucose Meter Confirm 171 H Lactic Acid Calcium Troponin I 07/28/18 07/28/18 07/28/18 11:00 11:50 15:10 WBC RBC Hgb Hct MCV MCH MCHC RDW Plt Count MPV Neut % (Auto) Lymph % (Auto) [place] % (Auto) Eos % (Auto) Baso % (Auto) Absolute Neuts (auto) Absolute Lymphs (auto) Absolute Monos (auto) Absolute Eos (auto) Absolute Basos (auto) Absolute Nucleated RBC Nucleated RBC % APTT 42.0 H ABG pH ABG pCO2 ABG pO2 ABG HCO3 ABG O2 Saturation ABG Base Excess Sodium Potassium Chloride Carbon Dioxide Anion Gap BUN Creatinine Est GFR ( Amer) Est GFR (Non-Af Amer) BUN/Creatinine Ratio Glucose POC Glucose (mg/dL) 160 H Glucose Meter Confirm Lactic Acid Calcium Troponin I 31.13 H* Studies: CXR shows almost complete clearing of infiltrates (!!). Sputum Gram's stain pending Nutrition: None Impression: 1. Normal hemodynamic measurements (cardiac output, stroke volume, wedge pressure) with decreasing troponins. Leakage likely from "stress demand" and possible myocarditis. 2. Oxygen exchange is improving - PEEP down to 5 cm H2O and FIO2 down to 40% 3. Fever today could be from influenza and/or bacterial superinfection Plan: 1. Wean vasopressor Rx as tolerated. 2. Start empiric Rx with PIP/TAZO for possible bacterial tracheobronchitis. 3. Taper FIO2 as tolerated. 4. D/c hepain drip 5. Consider weaning tomorrow. Critical Care Time: 90 minutes (including time needed to do hemodynamic profiles with the PA catheter).
[2018-07-28] MEDS: Heparin VIAL(*) 5000 UNITS/ML VIAL (FIVE THOUSAND) IV PRN (16:16)
[2018-07-28] MEDS ORDERED: Famotidine IV * 20 MG in NS 0.9% 100 ML* 100 ML IV ONE (16:29)
[2018-07-28] MEDS ORDERED: Famotidine IV* 10 MG/ML 2 ML (20 mg) IV ONE (17:00)
[2018-07-28] MEDS ORDERED: Insulin LISPRO* 1 UNITS UNIT SUBCUT ONE (17:00)
[2018-07-28] MEDS: Atorvastatin* 40 MG TAB PO SCH (17:57)
[2018-07-28 19:04] LABS: Hematocrit 38 % (42-52); Hemoglobin 12.4 g/dl (14.0-18.0); Mean Corpuscular HGB Conc 33 g/dl (31-36); Mean Corpuscular Hemoglobin 30 pg (27-31); Mean Corpuscular Volume 92 fL (80-94); Red Blood Count 4.16 10^6/ul (4.00-5.40); Red Cell Distribution Width 15 % (10.5-15); White Blood Count 14.3 10^3/ul (3.5-10.8)
[2018-07-28 19:43] LABS: ABS Basophils 0 10^3/ul (0-0.2); ABS Eosinophils 0 10^3/ul (0-0.6); ABS Lymphocytes 0.4 10^3/ul (1.0-4.8); ABS Monocytes 1.4 10^3/ul (0-0.8); ABS Neutrophils 12.6 10^3/ul (1.5-7.7); ABS Nucleated RBC 0 10^3/ul; Eosinophil % 0 %; Lymphocyte % 2.5 %; Mean Platelet Volume 9.3 fL (7.4-10.4); Nucleated Red Blood Cells % 0; Platelet Count 96 10^3/ul (150-450)
[2018-07-28] MEDS: ZOSYN 3.375 GM Q8H per EXTENDED INFUSION IVPB SCH ×2 (21:41)
[2018-07-28] MEDS: Heparin VIAL(*) 5000 UNITS/ML VIAL (FIVE THOUSAND) SUBCUT SCH (21:41)
[2018-07-29] MEDS: Chlorhexidine MOUTHWASH 0.12%* 15 ML UDC TOPICAL SCH ×6 (01:23→21:14)
[2018-07-29] MEDS: Propofol* 100 ML IV SCH ×6 (04:28→21:15)
[2018-07-29] MEDS: ZOSYN 3.375 GM Q8H per EXTENDED INFUSION IVPB SCH ×6 (05:45→21:14)
[2018-07-29] MEDS: Norepinephrine 16MCG/ML IVPRE* 4,000 MCG/250 ML BAG IV SCH (05:46)
[2018-07-29 06:01] LABS: Hematocrit 37 % (42-52); Hemoglobin 12.4 g/dl (14.0-18.0); Mean Corpuscular HGB Conc 34 g/dl (31-36); Mean Corpuscular Hemoglobin 31 pg (27-31); Mean Corpuscular Volume 92 fL (80-94); Mean Platelet Volume 9.4 fL (7.4-10.4); Platelet Count 92 10^3/ul (150-450); Red Blood Count 4.03 10^6/ul (4.00-5.40); Red Cell Distribution Width 16 % (10.5-15); White Blood Count 10.3 10^3/ul (3.5-10.8)
[2018-07-29 06:22] LABS: Albumin/Globulin Ratio 1.4 (1-3); BUN/Creatinine Ratio 17.8 (8-20); Calcium 7.9 mg/dL (8.6-10.3); EGFR African American 124.8 (>60); EGFR Non-African American 103.1 (>60); Globulin 2.1 g/dL (2-4); Potassium 3.6 mmol/L (3.5-5.0); Total Bilirubin 0.9 mg/dL (0.2-1.0); Total Protein 5.1 g/dL (6.4-8.9)
[2018-07-29 06:26] LABS: Troponin I 14.44 ng/mL (<0.04)
[2018-07-29] MEDS: Insulin LISPRO* 1 UNITS UNIT SUBCUT SCH ×4 (07:59→21:23)
[2018-07-29] MEDS ORDERED: Famotidine IV * 20 MG in NS 0.9% 100 ML* 100 ML IVPB SCH (09:00)
[2018-07-29] MEDS: Oseltamivir CAP* 75 MG CAP PO SCH ×2 (09:13→21:14)
[2018-07-29] MEDS: Tamsulosin CAP* 0.4 MG PO SCH (09:13)
[2018-07-29] MEDS: Heparin VIAL(*) 5000 UNITS/ML VIAL (FIVE THOUSAND) SUBCUT SCH ×2 (09:13→21:16)
[2018-07-29] MEDS: Famotidine IV* 10 MG/ML 2 ML (20 mg) IV SCH (09:13)
[2018-07-29] MEDS: Aspirin EC TAB* 81 MG TAB.EC PO SCH (09:14)
[2018-07-29] MEDS: Clopidogrel TAB* 75 MG PO SCH (09:14)
[2018-07-29] MEDS: Metoprolol Tartrate TAB* 25 MG PO SCH ×2 (09:14→21:22)
[2018-07-29] MEDS ORDERED: Metoprolol Tartrate TAB* 25 MG NG TUBE ONE (10:14)
[2018-07-29] MEDS: KCL 20 MEQ/100 ML IVPREMIX* 20 MEQ/100 ML BAG IV SCH ×2 (11:01→12:57)
--- NOTE | 2018-07-29 14:34 | PN ---
Progress Note - Progress Note Date of Service: 07/29/18 SOAP: Subjective: Patient was on sedation with propofol mechanical ventilation. Propofol was held to and assess patient's neurological status. After being off the fall patient opened his eyes, and did not convey any distress. Objective: Vital Signs Temp 100.6 F 07/29/18 14:00 Pulse 103 07/29/18 14:00 Resp 30 07/29/18 14:05 BP 110/65 07/29/18 03:30 Pulse Ox 99 07/29/18 14:00 Intake & Output 07/28/18 07/29/18 07/29/18 18:59 06:59 18:59 Intake Total 715 1322 688 Output Total 735 1080 925 Balance -20 242 -237 Weight 200 lb 6.403 oz Intake: IV Fluids 54 262 ABX - PIPERACILLIN 115 NS (0.9%) 54 147 IVPB 108 227 ABX - PIPERACILLIN 133 NS (0.9%) 108 94 Medicated IV 661 952 461 CC - Norepinephrine/ 311 341 135 Levophed CC - Propofol/Diprivan 208 407 192 Heparin 142 204 potassium 134 Oral 0 Output: Hassan 735 1080 925 Physical exam: General: Elderly male currently on mechanical ventilation and normal distress. Off propofol he followed all commands, and moves all 4 extremities. HEENTis pink, endotracheal tube in place cardiovascular: S1-S2 regular no murmurs appreciated respiratory: Good air entry bilaterally mild crackles at the bases abdomen: Soft nontender positive bowel sounds extremities minimal edemacyanosis neuro: Moving all 4 extremities and responding to verbal commands Assessment: 82-year-old male admitted for influenza and pneumonia and ACS. Patient known to have significant cardiovascular disease. He underwent cardiac catheterization which did not reveal acute coronary occlusion. vein grafts were occluded, but does not appear to be acute Troponin peaked at 50. chest x-ray consistent with pulmonary edema/ARDS. [place] which was placed during current catheterization reveals a low/normal wedge pressure. Plan: respiratory failure secondary influenza/pneumonia. Findings on the x-ray are also suggestive of pulmonary edema. Continue ventilatory support. patient has adequate urine output. We will add spironolactone to improve cardiac function and diuresis. Continue antibiotic therapy with Zosyn, sputum cultures are pending. Continue Tamiflu. will continue to make attempts to wean off ventilator. Repeat chest x-ray tomorrow morning for further evaluation of pneumonitis/pulmonary edema. ACS cardiology recommendations reviewed, continue supportive care. Currently on heparin, Plavix, aspirin and Lopressor. Troponin trending down. We will initiate spironolactone based on my discussion with cardiology. GI prophylaxis with Protonixinitiated tube feeds initiated Renal function stable I had a long discussion with the patient's family at his bedside regarding his current management. All questions were answered to their satisfaction.
[2018-07-29 15:52] LABS: BUN/Creatinine Ratio 15.8 (8-20); Calcium 7.8 mg/dL (8.6-10.3); EGFR African American 119.1 (>60); EGFR Non-African American 98.4 (>60)
[2018-07-29] MEDS: Spironolactone TAB* 25 MG PO SCH (16:27)
[2018-07-29] MEDS: Atorvastatin* 40 MG TAB PO SCH (16:28)
--- NOTE | 2018-07-29 17:29 | PN ---
Subjective Date of Service: 07/29/18 - CC: intubated Interval History: Pateint intubated, sedated. BP good, getting norepi weaned. Mild increase in urine output with aldactone. Medications Active Medications: Acetaminophen (Tylenol Tab*) 650 mg PO Q6H PRN PRN Reason: pain/fever Last Admin: 07/28/18 16:16 Dose: 650 mg Aspirin (Aspirin Ec Tab*) 81 mg PO DAILY [facility] Last Admin: 07/29/18 09:14 Dose: 81 mg Atorvastatin Calcium (Lipitor*) 40 mg PO QPM [facility] Last Admin: 07/29/18 16:28 Dose: 40 mg Chlorhexidine Gluconate (Peridex Mouth Wash 0.12%*) 15 ml TOPICAL Q4H [facility] Last Admin: 07/29/18 16:28 Dose: 15 ml Clopidogrel Bisulfate (Plavix Tab*) 75 mg PO DAILY [facility] Last Admin: 07/29/18 09:14 Dose: 75 mg Dextrose (D50w Syringe 50 Ml*) 12.5 gm IV PUSH .FOR FS < 60 - SS PRN PRN Reason: FS < 60 Famotidine (Pepcid Iv*) 20 mg IV DAILY [facility] Last Admin: 07/29/18 09:13 Dose: 20 mg Heparin Sodium (Porcine) (Heparin Vial(*)) 5,000 units SUBCUT Q12HR [facility] Last Admin: 07/29/18 09:13 Dose: 5,000 units Sodium Chloride (Ns 0.9% 1000 Ml) 1,000 mls @ 25 mls/hr IV .per rate [facility] Last Admin: 07/28/18 03:06 Dose: 25 mls/hr Norepinephrine Bitartrate (Levophed 16 Mcg/Ml Premix Bag*) 4,000 mcg in 250 mls @ 18.75 mls/hr IV .INITIAL RATE [facility]; Protocol Last Admin: 07/29/18 05:46 Dose: 18.8 mls/hr Propofol (Diprivan*) 100 mls @ 24.127 mls/hr IV .(Initial Rate) [facility]; Protocol Last Admin: 07/29/18 17:05 Dose: 24.127 mls/hr Piperacillin Sod/Tazobactam (Sod 3.375 gm/ Sodium Chloride) 100 mls @ 25 mls/ hr IVPB Q8H [facility] Last Admin: 07/29/18 12:45 Dose: 25 mls/hr Insulin Human Lispro (Humalog*) 0 units SUBCUT ACHS [facility]; Protocol Last Admin: 07/29/18 16:15 Dose: Not Given Metoprolol Tartrate (Lopressor Tab*) 25 mg PO BID [facility] Last Admin: 07/29/18 09:14 Dose: Not Given Oseltamivir Phosphate (Tamiflu Cap*) 75 mg PO BID [facility] Stop: 07/31/18 21:01 Last Admin: 07/29/18 09:13 Dose: 75 mg Pharmacy Consult (Zosyn Per Pharmacy*) 1 note FOLLOW UP .ZOSYN PER PHARMACY [facility] Spironolactone (Aldactone Tab*) 25 mg PO DAILY [facility] Last Admin: 07/29/18 16:27 Dose: 25 mg Tamsulosin HCl (Flomax Cap*) 0.4 mg PO DAILY [facility] Last Admin: 07/29/18 09:13 Dose: 0.4 mg Objective Vital Signs: Temp Pulse Resp BP Pulse Ox 100.4 F 108 28 110/65 94 07/29/18 17:01 07/29/18 17:01 07/29/18 17:16 07/29/18 03:30 07/29/18 17:01 Intake and Output Last 24 Hours 07/27/18 07/28/18 07/29/18 07/30/18 04:59 04:59 04:59 04:59 Intake Total 3928 2290 1255 Output Total 650 1787 1535 Balance 3278 503 -280 Weight 197 lb 195 lb 11.2 oz 200 lb 6.403 oz Intake: IV Fluids 3898 190 194 ABX - PIPERACILLIN 115 NS (0.9%) 608 190 79 IVPB 108 227 ABX - PIPERACILLIN 133 NS (0.9%) 108 94 Medicated IV 1991 834 CC - Norepinephrine/ 848 286 Levophed CC - Propofol/Diprivan 591 414 Heparin 553 potassium 134 Oral 30 0 0 Output: Urine 250 Hassan 400 1787 1535 PA pr , Wedge 8 Oxygen Devices in Use Now: Mechanical Ventilator Appearance: [place] male, tubed, sedeated, lying supine, appears comfortable. Eyes: No Scleral Icterus Ears/Nose/Mouth/Throat: Clear Oropharnyx, Mucous Membranes Moist Neck: Trachea Midline, No Thyroid Enlargement, Masses Respiratory: Symmetrical Chest Expansion and Respiratory Effort - coarse rales vs. rhonci and mechanincal ventilator sounds. Cardiovascular: RRR - no murmurs, ventilator impacts exam. Abdominal: NL Sounds; No Tenderness; No Distention Extremities: No Edema, No Clubbing, Cyanosis Skin: No Rash or Ulcers Neurological: - - sedated, neuro exam not performed. Lines/Tubes/Other Access: Clean, Dry and Intact Endotracheal Tube, Clean, Dry and Intact Hassan, Clean, Dry and Intact Peripheral IV, Clean, Dry and Intact Central Line, Clean, Dry and Intact Arterial Line Laboratory Results: 07/29/18 05:28 07/29/18 15:30 INR (Anticoag Therapy) 0.97 (0.77-1.02) 07/27/18 07:32 APTT 42.0 seconds (26.0-36.3) H 07/28/18 15:10 Total Bilirubin 0.90 mg/dL (0.2-1.0) 07/29/18 05:28 AST 112 U/L (13-39) H 07/29/18 05:28 ALT 28 U/L (7-52) 07/29/18 05:28 Alkaline Phosphatase 42 U/L (34-104) 07/29/18 05:28 B-Natriuretic Peptide 845 pg/mL (<=100) H 07/27/18 13:58 Total Protein 5.1 g/dL (6.4-8.9) L 07/29/18 05:28 Albumin 3.0 g/dL (3.2-5.2) L 07/29/18 05:28 Globulin 2.1 g/dL (2-4) 07/29/18 05:28 Albumin/Globulin Ratio 1.4 (1-3) 07/29/18 05:28 07/27/18 07/27/18 07/27/18 07:32 13:58 16:10 Troponin I 0.04 H* 8.09 H* 13.22 H* 07/27/18 07/28/18 07/28/18 19:53 00:30 03:15 Troponin I 33.95 H* 50.91 H* 44.71 H* 07/28/18 07/28/18 07/28/18 05:45 08:25 11:00 Troponin I 40.66 H* 38.40 H* 31.13 H* 07/29/18 05:28 Troponin I 14.44 H* Diagnostic Imaging: ECHO 07/27/18: EF 25% Cath 07/27/18: Prelim/verbal report showed EF about 25%, global hypok and IW AK , Widely patent CHANDLER to LAD, all vein grafts occluded, LM disease confirmed. No evidence of acute occlusion found. Low ventricular pressures and wedge. CXR 07/27/18 post intubation: Increased densities, CHF and/or ARDS progressed. CXR 07/28/28: Improvement in infiltrates. CXR 07/29/18: CHF unchanged c/w 07/28/18. EKG Data: ECG #1 07/27/09 8 AM showed acute ischemia with ST elevation inferior leads and ST depression lateral leads with LBBB ECG's since this all show NSR/ST, LBBB and ST's at prior baseline. Monitor 07/29/18: Sinus tachycardia. Assessment/Plan 82 yo male with PMHx CABG, LBBB, moderate CM clinically stable until 1-2 days prior to admission. Admitted with Influenza A complicated by ischemia/NQMI, hypoxemia and infiltrates that are likely a combination of ARDS and CHF. Pt now s/p intubation, pressors and cath w/results as above, no evidence of acute large vessel infarct and surprisingly low intracardiac pressures. CAD: Trop elevation likely combination of demand/type 2 ischemia and possibly myocarditis. Trops peaked, continue heparin, plavix, ASA, metoprolol. Continue with supportive care of acute illness. CM: Ischemic and LBBB and possible element of myocarditis. Continue metoprolol. Getting held, I recommend continuing even if at lower more frequent doses. BP tolerated aldactone today, continue daily 12.5 or 25 mg/day. Will need Lasix as BP improves. retirement options include LPTA/LPTA D (Biventricular pacing). If decompensates further can rediscuss ballon pump, but hold off for now- doubt he will need it. Hypotension: Improved, no longer dependent on pressors. Influenza: Per intensivists. The patients daughter and son had questions on how he had SVG's close w/o his doctors being aware. I reviewed nuclear data of 05/2017 (EF 25% vs 45% on echo) , I educated on silent or near silent ischemia. Dr Varun Costa will assume cardiology care in AM.
[2018-07-30] MEDS: Chlorhexidine MOUTHWASH 0.12%* 15 ML UDC TOPICAL SCH ×6 (00:41→20:07)
[2018-07-30] MEDS: Propofol* 100 ML IV SCH (01:33)
--- NOTE | 2018-07-30 03:38 | CATH ---
CC: Dr. Ihsan Arguelles; Dr. Urias; Dr. Francis * CATH REPORT: DATE OF PROCEDURE: 07/28/18 - ROOM #ICU-02 PRIMARY CARE PHYSICIAN: Dr. Ihsan Arguelles. PROCEDURES: Right heart catheterization, bilateral selective coronary cineangiography, CHANDLER angiography, vein graft angiography, left heart catheterization, left ventriculography. HISTORY: An 82-year-old male with bypass grafting 2 years ago with CHANDLER to the LAD, and separate vein grafts to the RPDA, RPL, and ramus for 3-vessel disease with significant distal left main stenosis. He was admitted with influenza, acute respiratory failure. Chest x-ray showed bilateral infiltrates consistent with ARDS and/or pulmonary edema. On presentation, he had concordant ST depression in the precordial leads suggestive of ischemia, subsequent troponins have elevated consistent with non-ST elevation infarct. Because of the issue of ARDS versus pulmonary edema, right heart catheterization was planned. He underwent coronary angiography to rule out ACS as an etiology. PROCEDURE ACCESS: Right common femoral artery sheath 6 [place], right common femoral vein 8 [place] with 7 [place] catheter. DIAGNOSTIC CATHETERS: 6F OUMAR, 6FL 3.5. An LCB, MPA2, and RCB were used to probe the ascending aorta adjacent to clip markers without demonstration of any patent vein grafts. 6F pigtail was used for LV gram. MEDICATIONS: 1. IV propofol. 2. IV Levophed 5 mcg per minute. The patient was intubated. 3. Continued IV heparin. At the end of the procedure, [place] was secured, as was the right femoral arterial sheath. HEMODYNAMICS: Resting RA mean 5, RV 35/6, wedge mean 15, PA 30/14, mean 20. LV 99/11-21, no aortic valve gradient on pullback. ANGIOGRAPHY: CHANDLER: The CHANDLER is large, smooth, inserts into the mid LAD which is graft dependent. The LAD is small and diffusely diseased. It fills to the apex, as well as retrograde to its proximal occlusion. There was no insertion stenosis. RCA: The RCA is dominant, is occluded in its mid portion. Numerous injections adjacent to the clips in the ascending aorta failed to demonstrate any patent vein graft, 2 graft punch out sites were documented, third one was not visualized clearly. However, on left coronary injection, there was no evidence of competitive flow. Hence, root injection was not performed. Left main: The left main is normal in size, has a distal 80% stenosis with calcification. LAD: The LAD is occluded proximally, is calcified. Circumflex: The circumflex is not dominant, has a moderate ramus which has a proximal 80% stenosis without any distal competitive flow. The circumflex then supplies a smaller bifurcated posterolateral, the AV groove continuation provides a transatrial collateral to the distal right coronary with filling of the RPDA and RPL again without any evidence of competitive flow. LV gram: The inferobasilar wall is akinetic, the distal anterolateral wall is hypokinetic, visually estimated LVEF 25% to 30%. CONCLUSION: 1. Significant left main and RCA stenosis with LAD occlusion. Patent CHANDLER to the LAD, angiographically no evidence of patent vein graft to RPDA, RPL or ramus. 2. Hemodynamics consistent with ARDS rather than pulmonary edema. 3. Successful right femoral access. 4. Likely diagnosis is type 2 infarct in the setting of acute influenza with acute respiratory failure. He will need to pursue with his transmission operator in [place] future revascularization of the now protected left main, as well as ramus. [id number]/[facility] #: [id number] ZAIRA
[2018-07-30] MEDS: ZOSYN 3.375 GM Q8H per EXTENDED INFUSION IVPB SCH ×6 (05:34→21:06)
[2018-07-30 05:53] LABS: ABS Basophils 0 10^3/ul (0-0.2); ABS Eosinophils 0.1 10^3/ul (0-0.6); ABS Lymphocytes 0.4 10^3/ul (1.0-4.8); ABS Monocytes 0.7 10^3/ul (0-0.8); ABS Neutrophils 5.5 10^3/ul (1.5-7.7); ABS Nucleated RBC 0 10^3/ul; Eosinophil % 1.4 %; Hematocrit 36 % (42-52); Hemoglobin 11.9 g/dl (14.0-18.0); Lymphocyte % 5.6 %; Mean Corpuscular HGB Conc 33 g/dl (31-36); Mean Corpuscular Hemoglobin 30 pg (27-31); Mean Corpuscular Volume 92 fL (80-94); Mean Platelet Volume 9.1 fL (7.4-10.4); Nucleated Red Blood Cells % 0.1; Platelet Count 91 10^3/ul (150-450); Red Blood Count 3.91 10^6/ul (4.00-5.40); Red Cell Distribution Width 16 % (10.5-15); White Blood Count 6.8 10^3/ul (3.5-10.8)
[2018-07-30 06:12] LABS: BUN/Creatinine Ratio 17.8 (8-20); Calcium 7.9 mg/dL (8.6-10.3); EGFR African American 124.8 (>60); EGFR Non-African American 103.1 (>60); Potassium 3.7 mmol/L (3.5-5.0)
[2018-07-30 06:19] LABS: Troponin I 12.29 ng/mL (<0.04)
--- NOTE | 2018-07-30 07:33 | PN ---
Date of Service: 07/30/18 Critical Care Services: overnight he con't to do better. In the morning off sedation was able to wake up and follow all commands. Able to lift his head off the bed and strong cough. did not have any distress. was placed on CPAP 03/09 with 30% and passed the weaning trial Due to incease secreation and CXR finding given Lasix 20 mg IV x 1 Off levophed Vital Signs: Temp Pulse Resp BP SpO2 FiO2 99.7 F 105 27 103/68 95 30 07/29/18 20:00 07/30/18 06:00 07/30/18 06:00 07/30/18 03:00 07/30/18 06:00 07/30 05:47 Physical Exam: Gen: following commands HEENT: increase amount of secreation Lungs: Good air entry b/l Cardiac: S1 S2 regular Abdomen: Soft NT ND Extremities: Minimal edema No cyanosis Neuro: Awake and responding appropriately Fluid Balance (Past 24 Hours): I= O= Net Intake & Output 07/28/18 07/29/18 07/30/18 07/31/18 06:59 06:59 06:59 06:59 Intake Total 4748 2037 2048 Output Total 907 1815 2240 Balance 3841 222 -192 Weight 195 lb 11.2 oz 200 lb 6.403 oz 194 lb 3.636 oz Intake: IV Fluids 3966 316 374 ABX - PIPERACILLIN 115 163 NS (0.9%) 676 201 211 IVPB 108 227 ABX - PIPERACILLIN 133 NS (0.9%) 108 94 Medicated IV 752 1613 1086 CC - Norepinephrine/ 347 652 395 Levophed CC - Propofol/Diprivan 198 615 557 Heparin 207 346 potassium 134 Oral 30 0 0 Tube Feeding 231 Tube Feeding Flush Amount 90 NG Tube Irrigate Amount 40 Output: Urine 250 Hasasn 657 1815 2240 Tube Feeding Residual 0 Amount Wasted Labs: Laboratory Results - last 24 hr 07/29/18 07/29/18 07/29/18 07:54 11:24 15:30 WBC RBC Hgb Hct MCV MCH MCHC RDW Plt Count MPV Neut % (Auto) Lymph % (Auto) [place] % (Auto) Eos % (Auto) Baso % (Auto) Absolute Neuts (auto) Absolute Lymphs (auto) Absolute Monos (auto) Absolute Eos (auto) Absolute Basos (auto) Absolute Nucleated RBC Nucleated RBC % Sodium 140 Potassium 4.0 Chloride 112 H Carbon Dioxide 23 Anion Gap 5 BUN 12 Creatinine 0.76 Est GFR ( Amer) 119.1 Est GFR (Non-Af Amer) 98.4 BUN/Creatinine Ratio 15.8 Glucose 113 H POC Glucose (mg/dL) 127 H 118 H Calcium 7.8 L Troponin I 07/29/18 07/30/18 07/30/18 20:44 05:15 05:15 WBC 6.8 RBC 3.91 L Hgb 11.9 L Hct 36 L MCV 92 MCH 30 MCHC 33 RDW 16 H Plt Count 91 L MPV 9.1 Neut % (Auto) 81.8 Lymph % (Auto) 5.6 [place] % (Auto) 10.8 Eos % (Auto) 1.4 Baso % (Auto) 0.4 Absolute Neuts (auto) 5.5 Absolute Lymphs (auto) 0.4 L Absolute Monos (auto) 0.7 Absolute Eos (auto) 0.1 Absolute Basos (auto) 0 Absolute Nucleated RBC 0 Nucleated RBC % 0.1 Sodium 139 Potassium 3.7 Chloride 111 Carbon Dioxide 23 Anion Gap 5 BUN 13 Creatinine 0.73 Est GFR ( Amer) 124.8 Est GFR (Non-Af Amer) 103.1 BUN/Creatinine Ratio 17.8 Glucose 110 H POC Glucose (mg/dL) 129 H Calcium 7.9 L Troponin I 12.29 H* Studies: CXR better with mild pul edema Nutrition: Tube feeds d/c after extubation Impression: 82-year-old male admitted for influenza and pneumonia and ACS. He was intubated due to respiratory distress. Patient known to have significant cardiovascular disease. He underwent cardiac catheterization which did not reveal acute coronary occlusion. vein grafts were occluded, but does not appear to be acute Troponin peaked at 50 and trending down. chest x-ray consistent with pulmonary edema improving. [place] which was placed during current catheterization d/c today. Overall doing better and tolerated the extubation. Con't to have large amounts of secretions Plan: Respiratory Failure extubated on supplemental oxygen con't suction of mouth due to secreations Con't zosyn and vanco sputum cult pending ID Influenza con't tamiful ACS trop trending down hemodynamically stable Cont plavix, asa, lopressor and spironalactone levophed titrated off. Renal function stable GI Con't GI prophylasis Critical Care Time 50 min
[2018-07-30] MEDS: Metoprolol Tartrate TAB* 25 MG PO SCH (07:58)
[2018-07-30] MEDS: Heparin VIAL(*) 5000 UNITS/ML VIAL (FIVE THOUSAND) SUBCUT SCH ×2 (08:20→20:09)
[2018-07-30] MEDS: Famotidine IV* 10 MG/ML 2 ML (20 mg) IV SCH (08:22)
[2018-07-30] MEDS: Spironolactone TAB* 25 MG PO SCH (08:23)
[2018-07-30] MEDS: Tamsulosin CAP* 0.4 MG PO SCH (08:23)
[2018-07-30] MEDS: Oseltamivir CAP* 75 MG CAP PO SCH ×2 (08:23→20:08)
[2018-07-30] MEDS: Aspirin EC TAB* 81 MG TAB.EC PO SCH (08:23)
[2018-07-30] MEDS: Clopidogrel TAB* 75 MG PO SCH (08:23)
[2018-07-30] MEDS: Insulin LISPRO* 1 UNITS UNIT SUBCUT SCH ×4 (08:24→20:20)
[2018-07-30] MEDS ORDERED: Furosemide IV* 10 MG/ML 2 ML VIAL (20 MG) IV ONE (09:58)
[2018-07-30] MEDS: NS 0.9% 1000 ML** 1,000 ML IV SCH (15:47)
[2018-07-30] MEDS: Atorvastatin* 40 MG TAB PO SCH (17:44)
--- NOTE | 2018-07-30 20:04 | PN ---
Subjective Date of Service: 07/30/18 Interval History: f/u CHF extubated conversing no dypsnea at rest swan-sharon removed today Off pressors s/p IV lasix responded well tele: sinus tachycardia Medications Active Medications: Acetaminophen (Tylenol Tab*) 650 mg PO Q6H PRN PRN Reason: pain/fever Last Admin: 07/28/18 16:16 Dose: 650 mg Aspirin (Aspirin Ec Tab*) 81 mg PO DAILY [facility] Last Admin: 07/30/18 08:23 Dose: 81 mg Atorvastatin Calcium (Lipitor*) 40 mg PO QPM [facility] Last Admin: 07/30/18 17:44 Dose: Not Given Chlorhexidine Gluconate (Peridex Mouth Wash 0.12%*) 15 ml TOPICAL Q4H [facility] Last Admin: 07/30/18 15:44 Dose: Not Given Clopidogrel Bisulfate (Plavix Tab*) 75 mg PO DAILY [facility] Last Admin: 07/30/18 08:23 Dose: 75 mg Dextrose (D50w Syringe 50 Ml*) 12.5 gm IV PUSH .FOR FS < 60 - SS PRN PRN Reason: FS < 60 Famotidine (Pepcid Iv*) 20 mg IV DAILY [facility] Last Admin: 07/30/18 08:22 Dose: 20 mg Haloperidol Lactate (Haldol Inj Iv/Im*) 1 mg IV SLOW PU BEDTIME [facility] Heparin Sodium (Porcine) (Heparin Vial(*)) 5,000 units SUBCUT Q12HR [facility] Last Admin: 07/30/18 08:20 Dose: 5,000 units Sodium Chloride (Ns 0.9% 1000 Ml) 1,000 mls @ 25 mls/hr IV .per rate [facility] Last Admin: 07/30/18 15:47 Dose: 25 mls/hr Propofol (Diprivan*) 100 mls @ 24.127 mls/hr IV .(Initial Rate) [facility]; Protocol Last Admin: 07/30/18 01:33 Dose: 21.5 mls/hr Piperacillin Sod/Tazobactam (Sod 3.375 gm/ Sodium Chloride) 100 mls @ 25 mls/ hr IVPB Q8H [facility] Last Admin: 07/30/18 13:10 Dose: 25 mls/hr Insulin Human Lispro (Humalog*) 0 units SUBCUT ACHS [facility]; Protocol Last Admin: 07/30/18 16:10 Dose: Not Given Lisinopril (Prinivil Tab*) 2.5 mg PO DAILY [facility] Metoprolol Succinate (Toprol Xl Tab*) 25 mg PO BID [facility] Oseltamivir Phosphate (Tamiflu Cap*) 75 mg PO BID [facility] Stop: 07/31/18 21:01 Last Admin: 07/30/18 08:23 Dose: 75 mg Pharmacy Consult (Zosyn Per Pharmacy*) 1 note FOLLOW UP .ZOSYN PER PHARMACY [facility] Spironolactone (Aldactone Tab*) 25 mg PO DAILY [facility] Last Admin: 07/30/18 08:23 Dose: 25 mg Tamsulosin HCl (Flomax Cap*) 0.4 mg PO DAILY [facility] Last Admin: 07/30/18 08:23 Dose: 0.4 mg Objective Vital Signs: Temp Pulse Resp BP Pulse Ox 99.7 F 105 5 104/59 94 07/30/18 19:10 07/30/18 19:10 07/30/18 19:10 07/30/18 19:10 07/30/18 19:10 Oxygen Devices in Use Now: Endotracheal Tube, Mechanical Ventilator Appearance: elderly, frail, pleasant Eyes: No Scleral Icterus Ears/Nose/Mouth/Throat: Clear Oropharnyx, Mucous Membranes Moist Neck: Trachea Midline, No Thyroid Enlargement, Masses Respiratory: Symmetrical Chest Expansion and Respiratory Effort - rales R base, decreased bs left base Cardiovascular: RRR - tachycardic, regular, no significant murmur noted Abdominal: NL Sounds; No Tenderness; No Distention Extremities: No Edema, No Clubbing, Cyanosis Skin: No Rash or Ulcers Neurological: - - aaox3 Lines/Tubes/Other Access: Clean, Dry and Intact Endotracheal Tube, Clean, Dry and Intact Hassan, Clean, Dry and Intact Peripheral IV, Clean, Dry and Intact Central Line, Clean, Dry and Intact Arterial Line Laboratory Results: 07/30/18 05:15 07/30/18 05:15 INR (Anticoag Therapy) 0.97 (0.77-1.02) 07/27/18 07:32 APTT 42.0 seconds (26.0-36.3) H 07/28/18 15:10 Total Bilirubin 0.90 mg/dL (0.2-1.0) 07/29/18 05:28 AST 112 U/L (13-39) H 07/29/18 05:28 ALT 28 U/L (7-52) 07/29/18 05:28 Alkaline Phosphatase 42 U/L (34-104) 07/29/18 05:28 B-Natriuretic Peptide 845 pg/mL (<=100) H 07/27/18 13:58 Total Protein 5.1 g/dL (6.4-8.9) L 07/29/18 05:28 Albumin 3.0 g/dL (3.2-5.2) L 07/29/18 05:28 Globulin 2.1 g/dL (2-4) 07/29/18 05:28 Albumin/Globulin Ratio 1.4 (1-3) 07/29/18 05:28 07/27/18 07/27/18 07/27/18 07:32 13:58 16:10 Troponin I 0.04 H* 8.09 H* 13.22 H* 07/27/18 07/28/18 07/28/18 19:53 00:30 03:15 Troponin I 33.95 H* 50.91 H* 44.71 H* 07/28/18 07/28/18 07/28/18 05:45 08:25 11:00 Troponin I 40.66 H* 38.40 H* 31.13 H* 07/29/18 07/30/18 05:28 05:15 Troponin I 14.44 H* 12.29 H* Diagnostic Imaging: ECHO 07/27/18: EF 25% Cath 07/27/18: Widely patent CHANDLER to LAD, pLAD MACHINE INSTALLER All vein grafts occluded, mRCA MACHINE INSTALLER 80% distal LM lesion iwth 80% proximal ramus lesion,non-dominant lcx gives collaterals to RCA CXR 07/30/2018 b/l pleural effusions and interstitial edema 05/2017 nuc LVEF 25% EKG Data: ECG 07/27/2018: NSR, LBBB, QTS > 150 ms Assessment/Plan 82 yo male with 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 Admitted with Influenza A complicated by ischemia/NQMI, hypoxemia and infiltrates that are likely a combination of ARDS and CHF. Pt now s/p intubation, pressors and cath w/results as above, - Continue aspirin, plavix and statin - Restart home toprol 25 mg po bid (ordered) - Restart home lisinopril 2.5 mg po daily (ordered) - Continue spironolactone 25 mg po daily - Will need further diuresis once further stabilized, will likely need low dose intermittent loop diuretic at discharge - Dr. Francis had already discussed with patient BiV (+/- ICD) at their appointment earlier this month and patient has an appointment in October in [place] that his daughter already arranged for consideration of this
[2018-07-30] MEDS: Metoprolol Succinate XL TAB* 25 MG PO SCH (20:14)
[2018-07-30] MEDS ORDERED: Haloperidol INJ IV/IM* 5 MG/ML AMP IV SLOW PU SCH (21:00)
[2018-07-31] MEDS ORDERED: Haloperidol INJ IV/IM* 5 MG/ML AMP IV SLOW PU PRN (02:30)
[2018-07-31] MEDS: Chlorhexidine MOUTHWASH 0.12%* 15 ML UDC TOPICAL SCH ×6 (04:05→20:22)
[2018-07-31 04:52] LABS: ABS Basophils 0 10^3/ul (0-0.2); ABS Eosinophils 0.2 10^3/ul (0-0.6); ABS Lymphocytes 0.4 10^3/ul (1.0-4.8); ABS Monocytes 0.8 10^3/ul (0-0.8); ABS Neutrophils 4.9 10^3/ul (1.5-7.7); ABS Nucleated RBC 0 10^3/ul; Eosinophil % 3.2 %; Hematocrit 37 % (42-52); Hemoglobin 12.1 g/dl (14.0-18.0); Lymphocyte % 6.4 %; Mean Corpuscular HGB Conc 33 g/dl (31-36); Mean Corpuscular Hemoglobin 30 pg (27-31); Mean Corpuscular Volume 91 fL (80-94); Mean Platelet Volume 9.4 fL (7.4-10.4); Nucleated Red Blood Cells % 0; Platelet Count 111 10^3/ul (150-450); Red Blood Count 4.02 10^6/ul (4.00-5.40); Red Cell Distribution Width 15 % (10.5-15); White Blood Count 6.4 10^3/ul (3.5-10.8)
[2018-07-31 05:08] LABS: BUN/Creatinine Ratio 23.1 (8-20); Blood Urea Nitrogen 15 mg/dL (6-24); CO2 Carbon Dioxide 23 mmol/L (22-32); Calcium 8.4 mg/dL (8.6-10.3); Chloride 110 mmol/L (101-111); EGFR African American 142.7 (>60); EGFR Non-African American 117.9 (>60); Glucose 101 mg/dL (70-100); Sodium 139 mmol/L (135-145)
[2018-07-31 05:13] LABS: Anion Gap 6 mmol/L (2-11); Troponin I 9.45 ng/mL (<0.04)
[2018-07-31] MEDS ORDERED: Saline NASAL DROPS 0.65%* 1 DROP BTL BOTH NARES PRN (05:17)
[2018-07-31] MEDS: ZOSYN 3.375 GM Q8H per EXTENDED INFUSION IVPB SCH ×6 (05:44→20:33)
[2018-07-31] MEDS: Insulin LISPRO* 1 UNITS UNIT SUBCUT SCH ×4 (08:15→20:19)
[2018-07-31] MEDS: Oseltamivir CAP* 75 MG CAP PO SCH ×2 (08:15→20:20)
[2018-07-31] MEDS: Spironolactone TAB* 25 MG PO SCH (08:17)
[2018-07-31] MEDS: Heparin VIAL(*) 5000 UNITS/ML VIAL (FIVE THOUSAND) SUBCUT SCH ×2 (08:17→20:20)
[2018-07-31] MEDS: Clopidogrel TAB* 75 MG PO SCH (08:17)
[2018-07-31] MEDS: Famotidine IV* 10 MG/ML 2 ML (20 mg) IV SCH (08:17)
[2018-07-31] MEDS: Tamsulosin CAP* 0.4 MG PO SCH (08:17)
[2018-07-31] MEDS: Aspirin EC TAB* 81 MG TAB.EC PO SCH (08:17)
[2018-07-31] MEDS: Lisinopril TAB* 5 MG PO SCH (08:22)
[2018-07-31] MEDS: Metoprolol Succinate XL TAB* 25 MG PO SCH ×2 (08:22→20:22)
[2018-07-31] MEDS: Atorvastatin* 40 MG TAB PO SCH (17:11)
[2018-08-01] MEDS: Chlorhexidine MOUTHWASH 0.12%* 15 ML UDC TOPICAL SCH ×6 (01:01→19:43)
[2018-08-01] MEDS: ZOSYN 3.375 GM Q8H per EXTENDED INFUSION IVPB SCH ×6 (04:50→19:58)
[2018-08-01] MEDS: Insulin LISPRO* 1 UNITS UNIT SUBCUT SCH ×4 (08:21→21:04)
[2018-08-01] MEDS: Famotidine IV* 10 MG/ML 2 ML (20 mg) IV SCH (09:28)
[2018-08-01] MEDS: Clopidogrel TAB* 75 MG PO SCH (09:31)
[2018-08-01] MEDS: Heparin VIAL(*) 5000 UNITS/ML VIAL (FIVE THOUSAND) SUBCUT SCH ×2 (09:31→19:58)
[2018-08-01] MEDS: Metoprolol Succinate XL TAB* 25 MG PO SCH ×2 (09:31→19:53)
[2018-08-01] MEDS: Spironolactone TAB* 25 MG PO SCH (09:31)
[2018-08-01] MEDS: Aspirin EC TAB* 81 MG TAB.EC PO SCH (09:31)
[2018-08-01] MEDS: Tamsulosin CAP* 0.4 MG PO SCH (09:32)
[2018-08-01] MEDS: Lisinopril TAB* 5 MG PO SCH (09:32)
[2018-08-01] MEDS: Atorvastatin* 40 MG TAB PO SCH (17:05)
--- NOTE | 2018-08-01 20:09 | PN ---
Subjective Date of Service: 08/01/18 - CC: sob Interval History: The patient was seen with his son and daughter. The patient does not remember me, denies SOB, chest discomfort, walking on the floor w/o c/o. Medications Active Medications: Acetaminophen (Tylenol Tab*) 650 mg PO Q6H PRN PRN Reason: pain/fever Last Admin: 07/28/18 16:16 Dose: 650 mg Aspirin (Aspirin Ec Tab*) 81 mg PO DAILY [facility] Last Admin: 08/01/18 09:31 Dose: 81 mg Atorvastatin Calcium (Lipitor*) 40 mg PO QPM [facility] Last Admin: 08/01/18 17:05 Dose: 40 mg Chlorhexidine Gluconate (Peridex Mouth Wash 0.12%*) 15 ml TOPICAL Q4H [facility] Last Admin: 08/01/18 19:43 Dose: Not Given Clopidogrel Bisulfate (Plavix Tab*) 75 mg PO DAILY [facility] Last Admin: 08/01/18 09:31 Dose: 75 mg Dextrose (D50w Syringe 50 Ml*) 12.5 gm IV PUSH .FOR FS < 60 - SS PRN PRN Reason: FS < 60 Famotidine (Pepcid Iv*) 20 mg IV DAILY [facility] Last Admin: 08/01/18 09:28 Dose: 20 mg Haloperidol Lactate (Haldol Inj Iv/Im*) 2 mg IV SLOW PU Q6H PRN PRN Reason: AGITATION Last Admin: 07/31/18 02:49 Dose: 2 mg Heparin Sodium (Porcine) (Heparin Vial(*)) 5,000 units SUBCUT Q12HR [facility] Last Admin: 08/01/18 09:31 Dose: 5,000 units Piperacillin Sod/Tazobactam (Sod 3.375 gm/ Sodium Chloride) 100 mls @ 25 mls/ hr IVPB Q8H [facility] Last Admin: 08/01/18 12:35 Dose: 25 mls/hr Insulin Human Lispro (Humalog*) 0 units SUBCUT ACHS [facility]; Protocol Last Admin: 08/01/18 16:56 Dose: Not Given Lisinopril (Prinivil Tab*) 2.5 mg PO DAILY [facility] Last Admin: 08/01/18 09:32 Dose: 2.5 mg Metoprolol Succinate (Toprol Xl Tab*) 25 mg PO BID [facility] Last Admin: 08/01/18 19:53 Dose: 25 mg Pharmacy Consult (Zosyn Per Pharmacy*) 1 note FOLLOW UP .ZOSYN PER PHARMACY [facility] Sodium Chloride (Sodium Chloride 0.65% Nasal Drops*) 1 drop BOTH NARES Q4H PRN PRN Reason: DISCOMFORT Last Admin: 07/31/18 09:45 Dose: 1 spray Spironolactone (Aldactone Tab*) 25 mg PO DAILY [facility] Last Admin: 08/01/18 09:31 Dose: 25 mg Tamsulosin HCl (Flomax Cap*) 0.4 mg PO DAILY [facility] Last Admin: 08/01/18 09:32 Dose: 0.4 mg Objective Vital Signs: Temp Pulse Resp BP Pulse Ox 98.1 F 103 18 97/62 95 08/01/18 19:52 08/01/18 19:52 08/01/18 19:52 08/01/18 19:52 08/01/18 19:52 Oxygen Devices in Use Now: None, Nasal Cannula Appearance: elderly, seated, centripetal obese. Eyes: No Scleral Icterus Ears/Nose/Mouth/Throat: Clear Oropharnyx, Mucous Membranes Moist Neck: Trachea Midline, No Thyroid Enlargement, Masses Respiratory: Symmetrical Chest Expansion and Respiratory Effort - Rare crackels bases, much improved c/w ICU eval. Cardiovascular: RRR - tachycardic, regular, no murmur noted Abdominal: NL Sounds; No Tenderness; No Distention Extremities: No Edema, No Clubbing, Cyanosis Skin: No Rash or Ulcers Neurological: NL Gait, - Lines/Tubes/Other Access: Clean, Dry and Intact Peripheral IV Laboratory Results: 07/31/18 04:29 07/31/18 04:29 INR (Anticoag Therapy) 0.97 (0.77-1.02) 07/27/18 07:32 APTT 42.0 seconds (26.0-36.3) H 07/28/18 15:10 Total Bilirubin 0.90 mg/dL (0.2-1.0) 07/29/18 05:28 AST 112 U/L (13-39) H 07/29/18 05:28 ALT 28 U/L (7-52) 07/29/18 05:28 Alkaline Phosphatase 42 U/L (34-104) 07/29/18 05:28 B-Natriuretic Peptide 845 pg/mL (<=100) H 07/27/18 13:58 Total Protein 5.1 g/dL (6.4-8.9) L 07/29/18 05:28 Albumin 3.0 g/dL (3.2-5.2) L 07/29/18 05:28 Globulin 2.1 g/dL (2-4) 07/29/18 05:28 Albumin/Globulin Ratio 1.4 (1-3) 07/29/18 05:28 07/27/18 07/27/18 07/27/18 07:32 13:58 16:10 Troponin I 0.04 H* 8.09 H* 13.22 H* 07/27/18 07/28/18 07/28/18 19:53 00:30 03:15 Troponin I 33.95 H* 50.91 H* 44.71 H* 07/28/18 07/28/18 07/28/18 05:45 08:25 11:00 Troponin I 40.66 H* 38.40 H* 31.13 H* 07/29/18 07/30/18 07/31/18 05:28 05:15 04:29 Troponin I 14.44 H* 12.29 H* 9.45 H* Diagnostic Imaging: ECHO 07/27/18: EF 25% Cath 07/27/18: Widely patent CHANDLER to LAD, pLAD WORKERS COMPENSATION CLAIMS ANALYST All vein grafts occluded, mRCA WORKERS COMPENSATION CLAIMS ANALYST 80% distal LM lesion iwth 80% proximal ramus lesion,non-dominant lcx gives collaterals to RCA CXR 07/30/2018 b/l pleural effusions and interstitial edema MEDICAL RECORDS FIELD TECHNICIAN 07/31/18: Interstitial edema improving. 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 Admitted with Influenza A complicated by ischemia/NQMI, hypoxemia and infiltrates that were likely a combination of ARDS and CHF. Pt s/p intubation, pressors and cath w/results as above. Recovering, doing well post extubation, ambulating and close to baseline. CAD: - Continue aspirin, plavix and statin CM+CAD: - Continue toprol 25 mg po bid (ordered) - Continue lisinopril 2.5 mg po daily (ordered) - Continue spironolactone 25 mg po daily Family will be in town to assist with care at home. I made them aware of risk of recurrent CHF. - Dr. Francis had already discussed with patient BiV (+/- ICD) at their appointment earlier this month and patient has an appointment in October in [place] that his daughter already arranged for consideration of this, the patient today is not sure he wants this. He does not recall ICU stages of his care. The patient should f/u with Dr Francis next week. Cardiology will follow distantly.
--- NOTE | 2018-08-01 20:33 | PN ---
Subjective Date of Service: 08/01/18 Interval History: Pt is feeling well. He denies any chest pain or SOB. He has done well ambulating around the floor with a walker earlier today. His family is trying to decide how much help he will need at home. Objective Active Medications: Acetaminophen (Tylenol Tab*) 650 mg PO Q6H PRN PRN Reason: pain/fever Last Admin: 07/28/18 16:16 Dose: 650 mg Aspirin (Aspirin Ec Tab*) 81 mg PO DAILY [facility] Last Admin: 08/01/18 09:31 Dose: 81 mg Atorvastatin Calcium (Lipitor*) 40 mg PO QPM [facility] Last Admin: 08/01/18 17:05 Dose: 40 mg Chlorhexidine Gluconate (Peridex Mouth Wash 0.12%*) 15 ml TOPICAL Q4H [facility] Last Admin: 08/01/18 19:43 Dose: Not Given Clopidogrel Bisulfate (Plavix Tab*) 75 mg PO DAILY [facility] Last Admin: 08/01/18 09:31 Dose: 75 mg Dextrose (D50w Syringe 50 Ml*) 12.5 gm IV PUSH .FOR FS < 60 - SS PRN PRN Reason: FS < 60 Famotidine (Pepcid Iv*) 20 mg IV DAILY [facility] Last Admin: 08/01/18 09:28 Dose: 20 mg Haloperidol Lactate (Haldol Inj Iv/Im*) 2 mg IV SLOW PU Q6H PRN PRN Reason: AGITATION Last Admin: 07/31/18 02:49 Dose: 2 mg Heparin Sodium (Porcine) (Heparin Vial(*)) 5,000 units SUBCUT Q12HR [facility] Last Admin: 08/01/18 19:58 Dose: 5,000 units Piperacillin Sod/Tazobactam (Sod 3.375 gm/ Sodium Chloride) 100 mls @ 25 mls/ hr IVPB Q8H [facility] Last Admin: 08/01/18 19:58 Dose: 25 mls/hr Insulin Human Lispro (Humalog*) 0 units SUBCUT ACHS [facility]; Protocol Last Admin: 08/01/18 16:56 Dose: Not Given Lisinopril (Prinivil Tab*) 2.5 mg PO DAILY [facility] Last Admin: 08/01/18 09:32 Dose: 2.5 mg Metoprolol Succinate (Toprol Xl Tab*) 25 mg PO BID [facility] Last Admin: 08/01/18 19:53 Dose: 25 mg Pharmacy Consult (Zosyn Per Pharmacy*) 1 note FOLLOW UP .ZOSYN PER PHARMACY [facility] Sodium Chloride (Sodium Chloride 0.65% Nasal Drops*) 1 drop BOTH NARES Q4H PRN PRN Reason: DISCOMFORT Last Admin: 07/31/18 09:45 Dose: 1 spray Spironolactone (Aldactone Tab*) 25 mg PO DAILY [facility] Last Admin: 08/01/18 09:31 Dose: 25 mg Tamsulosin HCl (Flomax Cap*) 0.4 mg PO DAILY [facility] Last Admin: 08/01/18 09:32 Dose: 0.4 mg Vital Signs - 8 hr 08/01/18 08/01/18 15:50 19:52 Temperature 98.0 F 98.1 F Pulse Rate 105 103 Respiratory 18 18 Rate Blood Pressure 97/66 97/62 (mmHg) O2 Sat by Pulse 95 95 Oximetry Oxygen Devices in Use Now: None Appearance: Elderly male sitting up in a chair, NAD Eyes: No Scleral Icterus Respiratory: Symmetrical Chest Expansion and Respiratory Effort, Clear to Auscultation Cardiovascular: NL Sounds; No Murmurs; No JVD, No Edema Abdominal: NL Sounds; No Tenderness; No Distention Extremities: No Clubbing, Cyanosis Skin: No Nodules or Sclerosis Neurological: Alert and Oriented x 3 Result Diagrams: 07/31/18 04:29 07/31/18 04:29 Microbiology and Other Data: Microbiology 07/27/18 07:51 Aerobic Blood Culture - Final Blood Venous No Growth Day 5 Anaerobic Blood Culture - Final No Growth Day 5 07/27/18 07:32 Aerobic Blood Culture - Final Blood Venous No Growth Day 5 Anaerobic Blood Culture - Final No Growth Day 5 07/28/18 15:10 Gram Stain - Final Sputum Sputum Culture - Final Staphylococcus Aureus Normal [place] 07/27/18 10:52 Urine Culture - Final Urine No Growth (<1,000 CFU/mL) 07/27/18 15:30 Nasal Screen MRSA (PCR) - Final Nasal Mrsa Not Detected 07/27/18 07:52 Influenza Types A,B Antigen - Final Nasal Specimen received for Influenza A/B Molecular testing Assess/Plan/Problems-Billing Mr Yuen is an 82 yo M who has a h/o CAD s/p CABG who who presented to the ER with c/o feeling unwell and was diagnosed with influenza and subsequently developed NSTEMI, CHF/ARDS and subsequent respiratory failure requiring intubation. - Patient Problems (1) NSTEMI (non-ST elevated myocardial infarction) Current Visit: Yes Status: Acute Code(s): I21.4 - NON-ST ELEVATION (NSTEMI) MYOCARDIAL INFARCTION SNOMED Code(s): 79032940 Comment: The patient's troponin peaked around 50. He underwent urgent catheterization on 07/27 that revealed a patent CHANDLER to LAD. There was no evident of a patent vein graft. Hemodynamics were felt to be consistent with ARDS and not pulmonary edema. Continue ASA, Bblocker, ACEI, statin, spironolactone. Will need close follow up wtih Dr. Francis. (2) Ischemic cardiomyopathy Current Visit: Yes Status: Acute Code(s): I25.5 - ISCHEMIC CARDIOMYOPATHY SNOMED Code(s): 967750835 Comment: Echo done on day of admission revealed markedly reduced EF of 20-25% . Continue aggressive medical managment with ACEI, Bblocker and spironolactone. Follow up with Dr. Francis. ? if pt would benefit from Bi-V ICD. Pt has an appointment in October for evaluation in [place]. I discussed with the patient's daugher about possibly moving that appointment up. (3) Acute respiratory failure with hypoxia Current Visit: Yes Status: Acute Code(s): J96.01 - ACUTE RESPIRATORY FAILURE WITH HYPOXIA SNOMED Code(s): 14572611 Comment: The patient developed acute hypoxic respiratory failure secondary to influenza and probable ARDS and CHF. He initially was managed with vapotherm , then BiPAP and then he was intubated, now doing well wihtout supplemental O2. (4) Influenza Current Visit: Yes Status: Acute Code(s): J11.1 - FLU DUE TO UNIDENTIFIED INFLUENZA VIRUS W OTH RESP MANIFEST SNOMED Code(s): 4498816 Comment: Completed tamiflu. (5) Diabetes Current Visit: Yes Status: Acute Code(s): E11.9 - TYPE 2 DIABETES MELLITUS WITHOUT COMPLICATIONS SNOMED Code(s): 84968776 Comment: Sugars are under good control not on any medication. Continue lispro sliding scale. (6) DVT prophylaxis Current Visit: Yes Status: Acute Code(s): WZC1077 - SNOMED Code(s): 379034082 Comment: SQ heparin (7) Full code status Current Visit: Yes Status: Acute Code(s): Z78.9 - OTHER SPECIFIED HEALTH STATUS SNOMED Code(s): 772763278
[2018-08-02] MEDS: Chlorhexidine MOUTHWASH 0.12%* 15 ML UDC TOPICAL SCH ×6 (01:32→20:15)
[2018-08-02] MEDS: ZOSYN 3.375 GM Q8H per EXTENDED INFUSION IVPB SCH ×4 (05:33→12:36)
[2018-08-02] MEDS: Insulin LISPRO* 1 UNITS UNIT SUBCUT SCH ×3 (08:18→16:19)
[2018-08-02] MEDS: Spironolactone TAB* 25 MG PO SCH (08:34)
[2018-08-02] MEDS: Tamsulosin CAP* 0.4 MG PO SCH (08:34)
[2018-08-02] MEDS: Aspirin EC TAB* 81 MG TAB.EC PO SCH (08:34)
[2018-08-02] MEDS: Clopidogrel TAB* 75 MG PO SCH (08:35)
[2018-08-02] MEDS: Lisinopril TAB* 5 MG PO SCH (08:35)
[2018-08-02] MEDS: Metoprolol Succinate XL TAB* 25 MG PO SCH (08:35)
[2018-08-02] MEDS: Famotidine IV* 10 MG/ML 2 ML (20 mg) IV SCH (08:35)
[2018-08-02] MEDS: Heparin VIAL(*) 5000 UNITS/ML VIAL (FIVE THOUSAND) SUBCUT SCH ×2 (08:35→20:16)
[2018-08-02] MEDS ORDERED: Metoprolol Succinate XL TAB* 25 MG PO ONE (12:15)
[2018-08-02 16:16] VITALS: BP 100/61
[2018-08-02] MEDS: Atorvastatin* 40 MG TAB PO SCH (18:17)
[2018-08-02] MEDS ORDERED: Metoprolol Succinate XL TAB* 25 MG PO SCH (21:00)
--- NOTE | 2018-08-02 21:40 | DS ---
CC: Dr. Francis; Dr. Arguelles; Dr. Urias * DISCHARGE SUMMARY: DATE OF ADMISSION: 07/27/18 DATE OF DISCHARGE: 08/02/18 PRIMARY CARE PROVIDER: Dr. Arguelles. ONCOLOGIST: Dr. Urias. HOCKEY SCOUT: Dr. Francis. PRINCIPAL DIAGNOSES: 1. Influenza. 2. Non-ST elevation myocardial infarction with subsequent cardiogenic shock. 3. Ischemic cardiomyopathy with EF of 20% to 25%. 4. Acute hypoxic respiratory failure secondary to influenza and acute respiratory distress syndrome. SECONDARY DIAGNOSES: 1. Type 2 diabetes. 2. Hypertension. 3. Hyperlipidemia. 4. Mantle cell lymphoma of the groin. DISCHARGE MEDICATIONS: 1. Calquence 100 mg p.o. b.i.d. - on hold until seen in follow up by Dr. Urias. 2. Finasteride 5 mg p.o. daily. 3. Colace 100 mg p.o. t.i.d. p.r.n. constipation. 4. Aspirin 81 mg p.o. daily. 5. Flomax 0.4 mg p.o. daily. 6. Lipitor 40 mg p.o. q.h.s. 7. Januvia 100 mg p.o. daily. 8. Lisinopril 2.5 mg p.o. daily. 9. Plavix 75 mg p.o. daily. 10. Spironolactone 25 mg p.o. daily.(new) 11. Metoprolol XL 37.5 mg p.o. twice daily (New extended release formulation and dose). HOSPITAL COURSE: Mr. Yuen is an 82-year-old male who presented to the emergency room on 07/27/18 with complaints of feeling unwell. He had been in his usual state of health until the afternoon prior to admission when he then began to have body aches, malaise and low-grade fever. He also had some diarrhea and following this, decided he should present to the emergency room for evaluation. The patient was admitted for sepsis secondary to influenza A. The patient was started on Tamiflu. The patient also was noted to have acute hypoxic respiratory failure likely secondary to ARDS and was admitted to ICU for Vapotherm therapy. The patient also on admission was noted to have a very mildly elevated troponin which rapidly began to climb. The patient was subsequently transitioned from Vapotherm to BiPAP, however, with the climbing troponin the patient developed progressive hypotension. The decision to made to electively intubate the patient so that he could undergo potential balloon pump insertion for cardiogenic shock related to his non-ST elevation CT. The patient was taken to the cardiac catheterization lab on the evening of . Dr. Bergeron performed a left heart cath which revealed the CHANDLER to be a large smooth vessel inserting into the mid LAD which was graft dependent. The LAD is small and diffusely diseased. It fills to the apex as well as retrograde to its proximal occlusion. There was no insertion stenosis. The RCA is dominant and occluded in its mid portion. Numerous injections adjacent to the clips in the ascending aorta failed to demonstrate any patent vein graft. Two graft punch out sites were documented. Third one was not visualized clearly. However, on the left coronary injection, there was no evidence of competitive flow hence injection was not performed. The patient's had a Goodwin-Geo catheter placed and his hemodynamics appeared to be consistent with ARDS and not pulmonary edema and therefore he did not have a balloon pump inserted. The patient was stabilized in the intensive care unit. He did require pressors for a period of time. The patient's troponin peaked at 50.91 on the very pulverizer operator of 07/28/18. His troponin has subsequently trended down. The patient has remained hypotensive with blood pressures ranging in the mid 90s to low 100 range. The patient otherwise has dramatically improved. He has been weaned from oxygen and his hypoxic respiratory failure has resolved. The patient's sepsis, influenza has been treated and have resolved. The patient was seen numerous times by Cardiology. Adjustments in his medications regimen were made due to his newly found reduced EF of 20% to 25% by echocardiogram (25% by cath). He remains on lisinopril 2.5 mg daily though his metoprolol tartrate was changed to metoprolol succinate initially 25 mg twice daily, but bumped up to 37.5 mg twice daily due to mildly increased heart rate. Additionally, the patient has been started on spironolactone 25 mg daily. Given the patient's non-ST elevation CT and newly reduced EF, the decision was made to get the patient set up for a LifeVest. Of note, the patient was being referred by Dr. Francis for biventricular pacer/ICD insertion in the near future. At this time, the patient is markedly improved from his complicated hospital course. He is ambulating fairly well with a walker. He does live alone though has significant family support. VNS has been set up for the patient and a list of home health agencies have been provided if the patient wants to hire privately for additional care. The patient will have the LifeVest delivered to the hospital this evening and will be discharged home following this. An appointment with Dr. Francis has been made for 08/07/18 at 12:45 p.m. I have recommended the patient to follow up at this appointment for any mediations adjustments or referral to [place] has not been made already for the biventricular pacer/ICD evaluation. The patient carries a history of mantle cell lymphoma. I spoke with Dr. Urias briefly and it was recommended that the patient hold his oral chemotherapy agent until he is seen in the clinic by her. I have recommended that he follow up in the next 1 to 2 weeks. On day of discharge, the patient is awake, alert and oriented, sitting up in a recliner chair, in no acute distress. His cardiac exam reveals a normal S1, S2 , with a mildly elevated heart rate in the low 100s. He does have 1+ edema of his lower extremities. His pulmonary exam reveals clear lungs bilaterally. His abdomen is soft, nontender, nondistended. His mental status is quite good. The patient is alert and oriented x3. FOLLOWUP CONCERNS: The patient has been discharged home today, 07/2818. ACTIVITY LEVEL: As tolerated though I have instructed the patient not to drive for at least the next couple of weeks while he is recovering from his acute illness. CONDITION ON DISCHARGE: Improved and stable. DIET: Heart healthy diabetic. FOLLOWUP: The patient has been recommended to follow up with Dr. Arguelles in the next 4 to 7 days, with Dr. Urias in the next 1 to 2 weeks, and with Dr. Francis on 08/07/18 at 12:45 p.m. TIME SPENT: Forty minutes was spent discharging this patient. [id number]/[facility] #: [id number] ZAIRA
== END 2018-08-02 21:15 | disposition home health service (06) | DRG 871 ==
LOC: ED 06:06 → ICU 12:44 → OBSVTOIN 15:32 → ICU 16:46 → MEDTELE 07-31 12:15
PROVIDERS: ADMIT Internal Medicine; ATTEND Hospitalist
PROC: 5A1945Z Respiratory Ventilation, 24-96 Consecutive Hours (ICD-10-PCS; 2018-07-27)
PROC: 5A09357 Assistance with Respiratory Ventilation, Less than 24 Consecutive Hours, Continuous Positive Airway Pressure (ICD-10-PCS; 2018-07-27)
PROC: 0BH17EZ Insertion of Endotracheal Airway into Trachea, Via Natural or Artificial Opening (ICD-10-PCS; principal; 2018-07-27 15:00)
PROC: 4A023N7 Measurement of Cardiac Sampling and Pressure, Left Heart, Percutaneous Approach (ICD-10-PCS; 2018-07-28)
PROC: B2151ZZ Fluoroscopy of Left Heart using Low Osmolar Contrast (ICD-10-PCS; 2018-07-28)
PROC: 4A023N6 Measurement of Cardiac Sampling and Pressure, Right Heart, Percutaneous Approach (ICD-10-PCS; 2018-07-28)
PROC: B2111ZZ Fluoroscopy of Multiple Coronary Arteries using Low Osmolar Contrast (ICD-10-PCS; 2018-07-28)
PROC: B2151ZZ Fluoroscopy of Left Heart using Low Osmolar Contrast (ICD-10-PCS; 2018-07-28)
PROC: B2121ZZ Fluoroscopy of Single Coronary Artery Bypass Graft using Low Osmolar Contrast (ICD-10-PCS; 2018-07-28)
PROC: B21F1ZZ Fluoroscopy of Other Bypass Graft using Low Osmolar Contrast (ICD-10-PCS; 2018-07-28)
PROC: 3E033XZ Introduction of Vasopressor into Peripheral Vein, Percutaneous Approach (ICD-10-PCS; 2018-07-28)
PROC: 0BP1XDZ Removal of Intraluminal Device from Trachea, External Approach (ICD-10-PCS; 2018-07-30)
DX: A41.9 Sepsis, unspecified organism (principal); J96.01 Acute respiratory failure with hypoxia; I21.4 Non-ST elevation (NSTEMI) myocardial infarction; R57.0 Cardiogenic shock; J80 Acute respiratory distress syndrome; J11.00 Influenza due to unidentified influenza virus with unspecified type of pneumonia; C83.15 Mantle cell lymphoma, lymph nodes of inguinal region and lower limb; I44.7 Left bundle-branch block, unspecified; E78.5 Hyperlipidemia, unspecified; E11.9 Type 2 diabetes mellitus without complications; N40.0 Benign prostatic hyperplasia without lower urinary tract symptoms; I48.0 Paroxysmal atrial fibrillation; K57.90 Diverticulosis of intestine, part unspecified, without perforation or abscess without bleeding; I25.5 Ischemic cardiomyopathy; I50.9 Heart failure, unspecified; I11.0 Hypertensive heart disease with heart failure; H91.90 Unspecified hearing loss, unspecified ear; Z85.51 Personal history of malignant neoplasm of bladder; Z82.49 Family history of ischemic heart disease and other diseases of the circulatory system; Z87.891 Personal history of nicotine dependence; I25.2 Old myocardial infarction; Z95.1 Presence of aortocoronary bypass graft; Z83.3 Family history of diabetes mellitus; Z79.82 Long term (current) use of aspirin; Z79.02 Long term (current) use of antithrombotics/antiplatelets; Z80.3 Family history of malignant neoplasm of breast; Z84.1 Family history of disorders of kidney and ureter; Z82.0 Family history of epilepsy and other diseases of the nervous system
CPT/HCPCS: 36415; 71045; 80048; 80053; 81003; 81015; 82550; 82803; 82947; 83605; 83735; 83880; 84484; 85025; 85027; 85060; 85610; 85652; 85730; 86140; 87040; 87070; 87077; 87086; 87186; 87205; 87641; 93005; 93306; 93461; 94002; 94003; 94660; 99285; A9270-GY; C1887; C8929; G8978-GP-CJ; G8979-GP-CH; J0330; J0780; J1630; J1644; J1940; J2250; J2543; J2704; J3010; J3480

== ENCOUNTER → 2018-08-13 10:59 | Emergency (ER) | payer MEDICARE, OTHER ==
[~2018-08-13 10:59] MED LIST: ED Azithromycn 500 mg/250 ml 500 MG/250 ML PREMIX.SET IVPB ONE; NS 0.9% 1000 ML** 1,000 ML IV ONE; cefTRIAXone(*) 1 GM ADVAN/BAG ONE; cefTRIAXone(*) 1 GM in NS 0.9% 50 ML* 50 ML IVPB ONE
[2018-08-13 13:03] LABS: ABS Basophils 0 10^3/ul (0-0.2); ABS Eosinophils 0.1 10^3/ul (0-0.6); ABS Lymphocytes 0.5 10^3/ul (1.0-4.8); ABS Monocytes 0.9 10^3/ul (0-0.8); ABS Neutrophils 6.3 10^3/ul (1.5-7.7); ABS Nucleated RBC 0 10^3/ul; Eosinophil % 1.1 %; Hematocrit 39 % (42-52); Hemoglobin 13.2 g/dl (14.0-18.0); Lymphocyte % 6.5 %; Mean Corpuscular HGB Conc 34 g/dl (31-36); Mean Corpuscular Hemoglobin 31 pg (27-31); Mean Corpuscular Volume 91 fL (80-94); Nucleated Red Blood Cells % 0; Platelet Count 210 10^3/ul (150-450); Red Blood Count 4.34 10^6/ul (4.00-5.40); Red Cell Distribution Width 16 % (10.5-15); White Blood Count 7.7 10^3/ul (3.5-10.8)
--- NOTE | 2018-08-13 13:11 | ED ---
Neurological HPI - HPI Summary HPI Summary: An 82 y/o male accompanied by his daughter presents to [facility] with a chief complaint of low blood pressure today. He c/o fatigue and denies CP, SOB or lightheadedness. At triage he rated his pain as a 0/10 in severity. At 07/27/18 he had the flu and he was sent home on 08/10/18. He reports that his vest went off today. His daughter reports that 2.5 years ago he had quadruple bypass. Dr. Francis is his licensed embalmer and Dr. Zamora is his PCP at [place] who sent the patient to the ED after seeing his low blood pressure. The patient reports taking aspirin. Per daughter, the patient is eating OK but not drinking like he should be. Per daughter he has a scheduled procedure at the end of August, but wants to get the patient in sooner. - History of Current Complaint Chief Complaint: EDWeakness Stated Complaint: HEART RATE GOES WAY DOWN AND WAY UP PER PT Time Seen by Provider: 08/13/18 12:41 Hx Obtained From: Patient, Family/Funeral Director And Embalmer Onset/Duration: Sudden Onset, Started hours ago, Still Present Timing: Constant Onset Severity: Mild Current Severity: Mild Pain Intensity: 0 Pain Scale Used: 0-10 Numeric Character: Weak Aggravating: Nothing Alleviating: Nothing Associated Signs and Symptoms: Positive: Weakness. Negative: Fever, Chest Pain , Shortness of Breath - Additional Pertinent History Primary Care Physician: [id number] - Allergy/Home Medications Allergies/Adverse Reactions: Allergies Allergy/AdvReac Type Severity Reaction Status Date / Time No Known Allergies Allergy Verified 08/13/18 11:48 Home Medications: Home Medications Metoprolol Succinate XL TAB* [Toprol XL TAB*] 25 mg PO BID 08/13/18 [History Confirmed 08/13/18] Spironolactone TAB* [Aldactone TAB 25 MG*] 12.5 mg PO DAILY 08/13/18 [History Confirmed 08/13/18] PMH/Surg Hx/FS Hx/Imm Hx Endocrine/Hematology History: Reports: Hx Diabetes, Other Endocrine/ Hematological Disorders - 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 Urias Cardiovascular History: Reports: Hx Angina, Hx Angioplasty, Hx Coronary Artery Disease, Hx Hypercholesterolemia, Hx Hypertension, Hx Myocardial Infarction, Other Cardiovascular Problems/Disorders - CABG, RF 35-40% 2016 Denies: Hx Valvular Heart Disease Respiratory History: Denies: Hx Asthma, Hx Chronic Obstructive Pulmonary Disease (COPD), Hx Pneumonia History: Reports: Hx Benign Prostatic Hyperplasia Sensory History: Reports: Hx Contacts or Glasses, Hx Hearing Problem Denies: Hx Hearing Aid Opthamlomology History: Reports: Hx Contacts or Glasses - Cancer History Cancer Type, Location and Year: Bladder cx, w/ surgical removal , lymphoma Hx Chemotherapy: Yes - Surgical History Surgery Procedure, Year, and Place: Surgical removal of bladder tumor. quadruple bypass 03/20 - Immunization History Date of Tetanus Vaccine: unk Date of Influenza Vaccine: Feb 2018 Infectious Disease History: No Infectious Disease History: Denies: Hx Clostridium Difficile, Hx Hepatitis, Hx Human Immunodeficiency Virus (HIV), Hx of Known/Suspected MRSA, Traveled Outside the [place] in Last 30 Days - Family History Known Family History: Positive: Cardiac Disease, Other - cancer - Social History Alcohol Use: None Substance Use Type: Reports: None Smoking Status (MU): Former Smoker Review of Systems Positive: Fatigue. Negative: Fever Positive: Other - positive: low blood pressure. Negative: Chest Pain Negative: Shortness Of Breath Neurological: Negative - lightheadedness Positive: Weakness All Other Systems Reviewed And Are Negative: Yes Physical Exam - Summary Physical Exam Summary: GENERAL: Patient is a well-developed and nourished M who is lying comfortable in the stretcher. Patient is not in any acute respiratory distress. HEAD AND FACE: Normocephalic EYES: PERRLA, EOMI x 2. EARS: Hearing grossly intact. MOUTH: Oropharynx within normal limits. NECK: Supple, trachea is midline, no adenopathy, no JVD, no carotid bruit. CHEST: Symmetric, no tenderness at palpation LUNGS: Clear to auscultation bilaterally. No wheezing or crackles. CVS: Regular rate and rhythm, S1 and S2 present, no murmurs or gallops appreciated. ABDOMEN: Soft, non-tender. Bowel sounds are normal. No abdominal abnormal pulsations. EXTREMITIES: Full ROM in all major joints, no edema, no cyanosis or clubbing. NEURO: Alert and oriented x 3. No acute neurological deficits. Speech is normal and follows commands. SKIN: Dry and warm Triage Information Reviewed: Yes Vital Signs On Initial Exam: Initial Vitals Temp Pulse Resp BP Pulse Ox 97.8 F 84 18 78/51 97 08/13/18 11:24 08/13/18 11:24 08/13/18 11:24 08/13/18 11:24 08/13/18 11:24 Vital Signs Reviewed: Yes Diagnostics - Vital Signs Vital Signs Temp Pulse Resp BP Pulse Ox 08/13/18 12:47 97 08/13/18 12:45 73 12 100/58 96 08/13/18 12:15 79 18 90/68 94 08/13/18 12:00 77 17 94 08/13/18 11:45 79 91/59 97 08/13/18 11:44 80 96 08/13/18 11:24 97.8 F 84 18 78/51 97 - Laboratory Lab Results: Lab Results 08/13/18 Range/Units 12:52 WBC 7.7 (3.5-10.8) 10^3/ul RBC 4.34 (4.00-5.40) 10^6/ul Hgb 13.2 L (14.0-18.0) g/dl Hct 39 L (42-52) % MCV 91 (80-94) fL MCH 31 (27-31) pg MCHC 34 (31-36) g/dl RDW 16 H (10.5-15) % Plt Count 210 (150-450) 10^3/ul MPV 8.0 (7.4-10.4) fL Neut % (Auto) 80.8 % Lymph % (Auto) 6.5 % [place] % (Auto) 11.0 % Eos % (Auto) 1.1 % Baso % (Auto) 0.6 % Absolute Neuts (auto) 6.3 (1.5-7.7) 10^3/ul Absolute Lymphs (auto) 0.5 L (1.0-4.8) 10^3/ul Absolute Monos (auto) 0.9 H (0-0.8) 10^3/ul Absolute Eos (auto) 0.1 (0-0.6) 10^3/ul Absolute Basos (auto) 0 (0-0.2) 10^3/ul Absolute Nucleated RBC 0 10^3/ul Nucleated RBC % 0 Result Diagrams: 08/13/18 12:52 08/13/18 12:52 Lab Statement: Any lab studies that have been ordered have been reviewed, and results considered in the medical decision making process. - Radiology CXR Radiology Interpretation Completed By: Radiologist Summary of Radiographic Findings: RIGHT UPPER LOBE INFILTRATE, RECOMMEND FOLLOW- UP CHEST X-RAYS TO RESOLUTION. ED physician has reviewed this imaging report. - EKG 11:32 Cardiac Rate: NL - 76 bpm EKG Rhythm: Sinus Rhythm EKG Comparison: No Significant Change Summary of EKG Findings: EKG at 11:32 showed normal sinus rhythm at 76 bpm with PACs and LBBB similar to previous EKG 08/02/18. Re-Evaluation - Re-Evaluation First Eval Re-Evaluation Time: 14:55 Change: Unchanged Comment: informed patient that Dr. Francis will see him in the ED. Course/Dx - Course Course Of Treatment: An 82 y/o male accompanied by his daughter presents to [facility] with a chief complaint of low blood pressure today. The physical exam was unremarkable. EKG at 11:32 showed normal sinus rhythm at 76 bpm with PACs and LBBB similar to previous EKG 08/02/18. In the ED course the patient was given Azithromycin IVPB, Rocephin and Sodium Chloride IV. Bloodwork and chemistries obtained. Urines obtained. Trace urine ketones. 1+ Urine blood. The patient tested negative for Influenza A and Influenza B. CXR impression: RIGHT UPPER LOBE INFILTRATE, RECOMMEND FOLLOW-UP CHEST X-RAYS TO RESOLUTION. Case discussed with Dr. Francis, licensed embalmer, who will see the patient in the ED. Dr. Francis says that he will expedite the patient's procedure and does not believe that the patient needs to be in the ED, recommending discharge. The patient will be discharged with a prescritpion for Levaquin. The patient feels very well and the daughter is agreeable with discharge. I discussed results with patient and hereports feeling better. He is hemodynamically stable and safe for discharge. Strict return precautions given and he will otherwise follow up with his PCP. - Diagnoses Provider Diagnoses: Pneumonia, Dehydration - Physician Notifications Discussed Care Of Patient With: Antione Francis Time Discussed With Above Provider: 14:55 Instructed by Provider To: MD Will See In ED Discharge - Sign-Out/Discharge Documenting (check all that apply): Patient Departure - DC Patient Received Moderate/Deep Sedation with Procedure: No - Discharge Plan Condition: Stable Disposition: HOME Prescriptions: Levofloxacin TAB* [Levaquin TAB*] 500 mg PO DAILY #10 tab Patient Education Materials: Pneumonia (ED) Referrals: Ihsan Arguelles DO [Primary Care Provider] - (1-3 days) Additional Instructions: RETURN TO THE EMERGENCY DEPARTMENT FOR CHANGING OR WORSENING SYMPTOMS. - Billing Disposition and Condition Condition: STABLE Disposition: Home - Attestation Statements Document Initiated by Scribe: Yes Documenting Scribe: Fito Henry Provider For Whom Scribe is Documenting (Include Credential): Hannah Titus MD Scribe Attestation: Fito Baker scribed for Hannah Titus MD on 08/14/18 at 0915. Scribe Documentation Reviewed: Yes Provider Attestation: The documentation as recorded by the Fito mccracken accurately reflects the service I personally performed and the decisions made by Julien watt MD Status of Scribe Document: Viewed
[2018-08-13 13:23] LABS: Activated Partial Thrombo Time 30.5 seconds (26.0-36.3); Albumin 3.7 g/dL (3.2-5.2); Albumin/Globulin Ratio 1.4 (1-3); BUN/Creatinine Ratio 20.9 (8-20); C Reactive Protein 2.55 mg/L (<8.01); Calcium 9.2 mg/dL (8.6-10.3); EGFR African American 77.7 (>60); EGFR Non-African American 64.2 (>60); Globulin 2.6 g/dL (2-4); INR 1.01 (0.77-1.02); Potassium 4.5 mmol/L (3.5-5.0); Total Bilirubin 0.8 mg/dL (0.2-1.0); Total Protein 6.3 g/dL (6.4-8.9)
[2018-08-13 13:24] LABS: Troponin I 0.02 ng/mL (<0.04)
[2018-08-13 13:26] LABS: Influenza A Molecular NEGATIVE (Negative); Influenza B Molecular NEGATIVE (Negative)
[2018-08-13 14:02] LABS: TSH (Thyroid Stimulating Horm) 2.3 mcIU/mL (0.34-5.60)
[2018-08-13 15:09] LABS: Urine Appearance Cloudy; Urine Bacteria Absent (Absent); Urine Bilirubin Negative (Negative); Urine Blood 1+ (Negative); Urine Color Yellow; Urine Glucose Negative (Negative); Urine Ketones Trace (Negative); Urine Nitrite Negative (Negative); Urine Protein Negative (Negative); Urine Red Blood Cell 1+(3-5/hpf) (Absent); Urine Specific Gravity 1.013 (1.010-1.030); Urine Squamous Epithelial Cell Present (Absent); Urine Urobilinogen Positive (Negative); Urine White Blood Cell Trace(0-5/hpf) (Absent)
[2018-08-13 16:16] VITALS: BP 106/60
== END | disposition home or self-care (01) ==
LOC: ED 10:59
DX: J18.9 Pneumonia, unspecified organism (principal); E86.0 Dehydration; R53.1 Weakness; R53.83 Other fatigue; N40.0 Benign prostatic hyperplasia without lower urinary tract symptoms; Z87.891 Personal history of nicotine dependence
CPT/HCPCS: 36415; 71045; 80053; 81003; 81015; 83605; 84443; 84484; 85025; 85610; 85730; 86140; 87040; 87086; 93005; 96361; 96374; 96375; 99284; J0456; J0696

== ENCOUNTER 2019-01-06 17:37 | Emergency (ER) | payer MEDICARE, OTHER ==
[2019-01-06 18:11] VITALS: BP 88/48
--- NOTE | 2019-01-06 19:57 | UC ---
Skin Complaint HPI - HPI Summary HPI Summary: PATIENT NOTICED A BRUISE ON HIS RIGHT WRIST SEVERAL DAYS AGO. DOES NOT RECALL ANY TRAUMA TO THE AREA HOWEVER STATES HE BRUISES EASILY HE IS ON A BLOOD THINNER. BRUISE IS CIRCULAR IN SHAPE SO HE WANTED TO MAKE SURE IT WAS NOT LYME DISEASE. HE DENIES ANY FEVER, HEADACHE, BODY ACHES, JOINT PAINS. - History of Current Complaint Chief Complaint: UCSkin Time Seen by Provider: 01/06/19 18:15 Stated Complaint: SORE ON ARM Hx Obtained From: Patient Onset/Duration: Lasting Days, Still Present Timing: Constant Onset Severity: Mild Current Severity: Mild Pain Intensity: 0 Pain Scale Used: 0-10 Numeric Location: Discrete - RIGHT WRIST Aggravating Factor(s): Nothing Alleviating Factor(s): Nothing Associated Signs & Symptoms: Positive: Bruising - Allergy/Home Medications Allergies/Adverse Reactions: Allergies Allergy/AdvReac Type Severity Reaction Status Date / Time No Known Allergies Allergy Verified 01/06/19 18:11 PMH/Surg Hx/FS Hx/Imm Hx Endocrine History: Diabetes Cardiovascular History: Hypertension Other Cancer History: BLADDER - Surgical History Surgical History: Yes Surgery Procedure, Year, and Place: Surgical removal of bladder tumor. quadruple bypass 03/20 - Family History Known Family History: Positive: None, Cardiac Disease, Other - cancer - Social History Alcohol Use: None Substance Use Type: None Smoking Status (MU): Former Smoker - Immunization History Most Recent Influenza Vaccination: 2016 Most Recent Tetanus Shot: unk Most Recent Pneumonia Vaccination: 2016 Review of Systems All Other Systems Reviewed And Are Negative: Yes Constitutional: Positive: Negative Skin: Positive: Bruising Respiratory: Positive: Negative Cardiovascular: Positive: Negative Gastrointestinal: Positive: Negative Musculoskeletal: Positive: Negative Neurological: Positive: Negative Physical Exam Triage Information Reviewed: Yes Appearance: Well-Appearing, No Pain Distress, Well-Nourished Vital Signs: Initial Vital Signs Temp 98.7 F 01/06/19 18:07 Pulse 70 01/06/19 18:07 Resp 16 01/06/19 18:07 BP 88/48 01/06/19 18:07 Pulse Ox 98 01/06/19 18:07 Vital Signs Reviewed: Yes Eyes: Positive: Conjunctiva Clear ENT: Positive: Hearing grossly normal Neck: Positive: Supple Respiratory: Positive: No respiratory distress, No accessory muscle use Cardiovascular: Positive: Pulses Normal Abdomen Description: Positive: Soft Musculoskeletal: Positive: No Edema Neurological: Positive: Alert Psychological: Positive: Age Appropriate Behavior Skin: Positive: Other - 3.5CM DIAMETER CIRCULAR BRUISE RIGHT WRIST VOLAR SURFACE.. Negative: Rashes Course/Dx - Course Course Of Treatment: PATIENT'S LESION LOOKS LIKE A BRUISE. PRESENTATION NOT CLINICALLY CONSISTENT AT ALL WITH ERYTHEMA MIGRANS OR LYME DISEASE. ADVISED CAREFUL OBSERVATION OF THE LESION AT HOME. IT SHOULD RESOLVE ON ITS OWN WITH TIME. SEEK FOLLOW-UP IF NOT IMPROVING EXPECTED. - Diagnoses Provider Diagnosis: Ecchymosis Discharge - Sign-Out/Discharge Documenting (check all that apply): Patient Departure All imaging exams completed and their final reports reviewed: No Studies - Discharge Plan Condition: Stable Disposition: HOME Patient Education Materials: Ecchymosis (ED) Referrals: Ihsan Arguelles DO [Primary Care Provider] - If Needed Additional Instructions: THE LESION ON YOUR RIGHT WRIST APPEARS TO BE A BRUISE. IT IS NOT CONSISTENT IN APPEARANCE WITH THE RASH OF LYME DISEASE. RECOMMEND CAREFUL OBSERVATION AT HOME. THE LESION SHOULD RESOLVE ON ITS OWN WITHIN A COUPLE OF WEEKS. SEEK FOLLOW-UP IF YOU'RE NOT IMPROVING EXPECTED. - Billing Disposition and Condition Condition: STABLE Disposition: Home
== END 2019-01-06 18:27 | disposition home or self-care (01) ==
LOC: UCEAST 17:37
DX: R23.3 Spontaneous ecchymoses (principal); I10 Essential (primary) hypertension; E11.9 Type 2 diabetes mellitus without complications; Z85.51 Personal history of malignant neoplasm of bladder; Z87.891 Personal history of nicotine dependence; Z79.01 Long term (current) use of anticoagulants
CPT/HCPCS: 99211; G0463

== ENCOUNTER 2019-08-07 11:18 | Emergency (ER) | payer MEDICARE, OTHER ==
--- OUTSIDE RECORDS SUMMARY | 2019-08-07 11:24 | XMS REPORT | Continuity of Care Document ---
:1935 External Reference #:[id number] Author Name Antione Francis M.D. Address [address] [place] [address] Care Team Providers Name Role Phone Haseeb Sauceda MD - Ophthalmology Care Team Information Granite Sandblaster Apprentice [phone] Quinn Dunne MD - Water Treatment Plant Supervisor Care Team Information Granite Sandblaster Apprentice Ihsan Arguelles D.ONicolasa - Family Medicine Care Team Information Granite Sandblaster Apprentice [phone] Problems Active Problems Provider Date Essential hypertension Keith Recinos M.D. Onset: 05/20/2016 Atherosclerosis of coronary artery bypass Keith Recinos M.D. Onset: 05/20 graft(s), unspecified, with unstable angina pectoris Type 2 diabetes mellitus Keith Recinos M.D. Onset: 05/20/2016 Chronic ischemic heart disease Keith Recinos M.D. Onset: 05/20/2016 Paroxysmal atrial fibrillation Keith Recinos M.D. Onset: 05/20/2016 Mixed hyperlipidemia Keith Recinos M.D. Onset: 05/20/2016 Social History Type Date Description Comments Sex Unknown Cigarette Use Quit 15 Years Ago ETOH Use Denies alcohol use Tobacco Use Start: Unknown End: Patient is a former smoker Unknown Recreational Drug Use Denies Drug Use Smoking Status Reviewed: 08/07/19 Patient is a former smoker Exercise Type/Frequency Exercises regularly Exercise Type/Frequency Walks 5 times a week Allergies, Adverse Reactions, Alerts Description No Known Drug Allergies Medications Active Medications SIG Qnty Indications Ordering Date Provider Metoprolol Succinate 1 tab by mouth 180tabs Antione Baron 10/26/2017 ER twice daily Melecio Francis 25mg Tablets ER 24HR Lancets Thin check blood 120units [place] 09/01/2016 Misc glucose 2-3 Melecio Recinos times daily and prn Aspirin Adult Low Dose 1 by mouth Unknown every day 81mg Tablets DR Finasteride 1 by mouth 30tabs [place] 5mg Tablets every day Melecio Recinos Atorvastatin Calcium 1 by mouth 30tabs [place] 40mg every day Melecio Recinos Tablets Blood Glucose Test check blood 100units [place] glucose 2-3 Melecio Recinos Strips times daily Tamsulosin HCL 1 by mouth 30caps [place] 0.4mg every day Melecio Recinos Capsules Lisinopril 1 by mouth Unknown 2.5mg Tablets every day [place] twice a day Unknown 100mg Capsules Spironolactone 1/2 pill by 45tabs Antione Baron 25mg mouth every day Melecio Francis Tablets Immunizations CPT Code Status Date Vaccine Lot # [id number] Given 06/21/2016 Zoster (Zostavax) [id number] Given 04/05/2016 Pneumonia Vaccine Vital Signs Date Vital Result Comment 08/07/2019 10:41am Height 67.5 inches 5'7.50" Weight 154.00 lb with shoes Heart Rate 66 /min BP Systolic Sitting 122 mmHg Lue reg cuff BP Diastolic Sitting 80 mmHg Lue reg cuff Respiratory Rate 18 /min BMI (Body Mass Index) 23.8 kg/m2 Ejection Fraction 20-25% 02/21/2019 05/24/2019 8:43am Height 67.5 inches 5'7.50" Weight 186.00 lb wirh shoes Heart Rate 67 /min BP Systolic Sitting 100 mmHg LA BP Diastolic Sitting 58 mmHg LA BP Systolic Standing 102 mmHg LA BP Diastolic Standing 66 mmHg LA BMI (Body Mass Index) 28.7 kg/m2 Ejection Fraction 20-25% Echo 02/21/19 Results Test Acquired Date Facility Test Result H/L Range Note Laboratory test 04/03/2019 [facility] Point of Care 125 mg/dL High 70-[address] [place] [address] [phone] 1 Treasury Accountant: [id number] Procedures Date Code Description Status 07/15/2019 95022 Icd Eval With Iterative Adjustmt Multiple Lead System Completed 07/15/2019 31886 Icd Eval With Iterative Adjustmt Multiple Lead System Completed 05/28/2019 34206 Interrogation Device Eval Remote Up To 30 Days Completed Analysis,Rev,RP 05/28/2019 59809 Interrogation Device Eval Remote Up To 30 Days Completed Analysis,Rev,RP 05/28/2019 85868 Icd Eval Sing,Dual,Multi Lead Remote Recpt Transm Tech Completed Rev Tech S 05/28/2019 47826 Icd Eval Sing,Dual,Multi Lead Remote Recpt Transm Tech Completed Rev Tech S 05/28/2019 25233 Icd Check Remote Up To 90 Days Single,Dual,Multiple Completed Lead 05/28/2019 87424 Icd Check Remote Up To 90 Days Single,Dual,Multiple Completed Lead 02/26/2019 23193 Icd Check Remote Up To 90 Days Single,Dual,Multiple Completed Lead 02/26/2019 43638 Icd Check Remote Up To 90 Days Single,Dual,Multiple Completed Lead 02/26/2019 60422 Icd Eval Sing,Dual,Multi Lead Remote Recpt Transm Tech Completed Rev Tech S 02/26/2019 23847 Icd Eval Sing,Dual,Multi Lead Remote Recpt Transm Tech Completed Rev Tech S 02/26/2019 53064 Interrogation Device Eval Remote Up To 30 Days Completed Analysis,Rev,RP 02/26/2019 75179 Interrogation Device Eval Remote Up To 30 Days Completed Analysis,Rev,RP 02/21/2019 65462 ECHO Transthorasic Realtime 2D W Doppler & Color Flow Completed Hosp 09/05/2017 391286474 Diabetic Retinal Eye Exam Completed 05/05/2016 157105557 Diabetic Retinal Eye Exam Completed Medical Devices Description No Information Available Encounters Type Date Location Provider Dx Diagnosis Office Visit 08/07/2019 [facility] Antione Baron I25.5 Ischemic 11:15a Of Vera Francis M.D. cardiomyopathy Z95.810 Presence of automatic (implantable) cardiac defibrillator I44.7 Left bundle-branch block, unspecified R94.31 Abnormal electrocardiogram [ECG] [EKG] Office Visit 05/24/2019 9:00a [facility] I25.5 Ischemic Cardiology Of Melecio Francis cardiomyopathy Tester Electronic Scale Z95.810 Presence of automatic (implantable) cardiac defibrillator I44.7 Left bundle-branch block, unspecified R94.31 Abnormal electrocardiogram [ECG] [EKG] I10 Essential (primary) hypertension Assessments Date Code Description Provider 08/07/2019 I25.5 Ischemic cardiomyopathy Antione Francis M.D. 08/07/2019 Z95.810 Presence of automatic (implantable) cardiac Antione Francis M.D. defibrillator 08/07/2019 I44.7 Left bundle-branch block, unspecified Antione Francis M.D. 08/07/2019 R94.31 Abnormal electrocardiogram [ECG] [EKG] Antione Francis M.D. 07/15/2019 I25.5 Ischemic cardiomyopathy Antione Francis M.D. 07/15/2019 I25.5 Ischemic cardiomyopathy Ica Pacer Schedule 07/15/2019 Z95.810 Presence of automatic (implantable) cardiac Antione Francis M.D. defibrillator 07/15/2019 Z95.810 Presence of automatic (implantable) cardiac Ica Pacer Schedule defibrillator 05/28/2019 I25.5 Ischemic cardiomyopathy Antione Francis M.D. 05/28/2019 I25.5 Ischemic cardiomyopathy Remote Device Checks 05/28/2019 Z95.810 Presence of automatic (implantable) cardiac Antione Francis M.D. defibrillator 05/28/2019 Z95.810 Presence of automatic (implantable) cardiac Remote Device Checks defibrillator 05/28/2019 I44.7 Left bundle-branch block, unspecified Antione Francis M.D. 05/28/2019 I44.7 Left bundle-branch block, unspecified Remote Device Checks 05/24/2019 I25.5 Ischemic cardiomyopathy Antione Francis M.D. 05/24/2019 Z95.810 Presence of automatic (implantable) cardiac Antione Francis M.D. defibrillator 05/24/2019 I44.7 Left bundle-branch block, unspecified Antione Francis M.D. 05/24/2019 R94.31 Abnormal electrocardiogram [ECG] [EKG] Antione Francis M.D. 05/24/2019 I10 Essential (primary) hypertension Antione Francis M.D. 02/26/2019 I25.5 Ischemic cardiomyopathy Antione Francis M.D. 02/26/2019 I25.5 Ischemic cardiomyopathy Remote Device Checks 02/26/2019 Z95.810 Presence of automatic (implantable) cardiac Antione Francis M.D. defibrillator 02/26/2019 Z95.810 Presence of automatic (implantable) cardiac Remote Device Checks defibrillator 02/21/2019 I42.9 Cardiomyopathy, unspecified Antione Francis M.D. Plan of Treatment Future Appointment(s):11/27/2019 8:45 am - Antione Francis M.D. at [facility]08/07/2019 - Antione Francis M.D.I25.5 Ischemic cardiomyopathyFollow up:As [id number] Presence of automatic (implantable) cardiac [id number] Left bundle-branch block, ruabavrhxlsB15.31 Abnormal electrocardiogram [ECG] [EKG] Functional Status Description No Information Available Mental Status Description No Information Available Referrals Description No Information Available
--- OUTSIDE RECORDS SUMMARY | 2019-08-07 11:24 | XMS REPORT | Summary of Care ---
:1935 Author Organization The Address [address] [place] [address] Care Team Providers Name Role Phone Dk Dubon Primary Care Provider Reason for Visit Reason Comments Establish Care establish from to Follow Up f/u to labs Encounter Details Date Type Department Care Team Description 07/29/2019 Office Visit [facility] Dk Dubon MD Atrial fibrillation, chronic (Primary Dx); Practice [address] Dizziness on standing; [address] [place] [address] Well adult exam; [place] [address] Type 2 diabetes mellitus without complication, without long-term current use of insulin ([facility]) [phone] Allergies No Known Allergiesdocumented as of this encounter (statuses as of 07/29/2019) Medications Medication Sig Dispensed Refills Start End Date Status Date Aspirin (ASPIR-81 PO) Take by 0 Active mouth. metoprolol (TOPROL Take 37.5 mg 0 Active XL) 25 MG Oral TABLET by mouth SR 24 HR TWICE DAILY. Lancets Does not 100 Strips by 100 Each 0 Active apply Misc Does not 8 apply route TWICE DAILY. Brand:insuran ce approved Dx:DM2 non-Insulin dependent Test Blood Glucose 2 time(s) A DAY spironolactone Take 12.5 mg 0 Active (ALDACTONE) 25 MG by mouth Oral Tab DAILY. ONE TOUCH ULTRA TEST use as 100 Strip 1 Active STRIPS In Vitro Strip directed 9 twice a day finasteride (PROSCAR) Take 1 Tab by 90 Tab 3 Active 5 MG Oral Tab mouth DAILY. 9 atorvastatin Take 1 Tab by 90 Tab 3 Active (LIPITOR) 40 MG Oral mouth DAILY. 9 Tab clopidogrel (PLAVIX) Take 75 mg by 0 07/29/19 Discontinued 75 MG Oral Tab mouth DAILY. 20 (Provider Discontinued) docusate sodium Take 100 mg 0 07/29/19 Discontinued (COLACE) 100 MG Oral by mouth 20 (Provider Cap DAILY. Discontinued) Acalabrutinib Take 100 mg 0 07/29/19 Discontinued (CALQUENCE) 100 MG by mouth 20 (Provider Oral Cap TWICE DAILY. Discontinued) JANUVIA 100 MG Oral take 1 tablet 90 Tab 1 07/29/19 Discontinued Tab by mouth once 9 20 (Error) daily lisinopril (PRINIVIL, Take 1 Tab by 90 Tab 1 07/29/19 Discontinued ZESTRIL) 2.5 MG Oral mouth DAILY. 9 20 (Provider TabIndications: Discontinued) Microalbuminuria Tamsulosin HCl TAKE 1 90 Cap 2 07/29/19 Discontinued (FLOMAX) 0.4 MG Oral CAPSULE BY 0 20 (Provider Cap MOUTH DAILY Discontinued) VALACYCLOVIR HCL PO Take by 0 07/29/19 Discontinued mouth. 20 (Error) GABAPENTIN PO Take by 0 07/29/19 Discontinued mouth TWICE 20 (Error) DAILY. valacyclovir TK 1 T PO BID 0 07/29/19 Discontinued (VALTREX) 500 MG Oral 0 20 (Provider Tab Discontinued) sitagliptin (JANUVIA) Take 100 mg 0 07/29/19 Discontinued 100 MG Oral Tab by mouth 20 (Provider DAILY. Discontinued) gabapentin 0 07/29/19 Discontinued (NEURONTIN) 300 MG 0 20 (Provider Oral Cap Discontinued) documented as of this encounter (statuses as of 07/29/2019) Active Problems Problem Noted Date Hypertension DM II (diabetes mellitus, type II), controlled Prostate enlargement Hyperlipemia Paroxysmal A-fib Ischemic cardiomyopathy Pneumococcal vaccination given Overview: per records. prvenar was given in apr 2016 Need for shingles vaccine Overview: per records given jun 2016 Influenza documented as of this encounter (statuses as of 07/29/2019) Resolved Problems Problem Noted Date Resolved Date Type 2 diabetes mellitus with complication, with long-term 08/21/20182019 current use of insulin Lymphoma 07/29/2019 B-cell lymphoma 07/29/2019 documented as of this encounter (statuses as of 07/29/2019) Immunizations Name Administration Dates Next Due Influenza (IM) Preservative Free 06/11/2008 Influenza Vaccine 65 Yrs + 03/06/2019 Influenza Vaccine High Dose 02/03/2019, 03/16/2016 PNEUMOCOCCAL POLYSACCHARIDE VACCINE 07/29/2019, 04/05/2016 Seasonal Trivalent Influenza Vaccine, Adjuvanted, 02/06/2017 Preserve TDAP Vaccine 09/09/2011 ZOSTER (SHINGRIX) VACCINE 05/28/2019 ZOSTER (ZOSTAVAX) VACCINE 06/21/2016 documented as of this encounter Social History Tobacco Use Types Packs/Day Years Used Date Former Smoker Smokeless Tobacco: Former User Alcohol Use Drinks/Week oz/Week Comments No Sex Assigned at Date Recorded Not on file documented as of this encounter Last Filed Vital Signs Vital Sign Reading Time Taken Comments Blood Pressure 118/72 07/29/2019 9:57 AM EST Pulse 74 07/29/2019 9:57 AM EST Temperature 36.1 07/29/2019 9:57 AM C (96.9 EST F) Respiratory Rate 20 07/29/2019 9:57 AM EST Oxygen Saturation 97% 07/29/2019 9:57 AM EST Inhaled Oxygen Concentration - - Weight 74.8 kg (164 lb 12.8 oz) 07/29/2019 9:57 AM EST Height 170.2 cm (5' 7") 07/29/2019 9:57 AM EST Body Mass Index 25.81 07/29/2019 9:57 AM EST documented in this encounter Progress Notes Dk Dubon MD - 07/29/2019 10:00 AM EST PATIENT: Oskar Yuen : 1935 DATE OF SERVICE: 07/29/2019 CHIEF COMPLAINT: Chief Complaint Patient presents with ? Establish Care establish from to ? Follow Up f/u to labs Subjective HISTORY OF PRESENT ILLNESS: Oskar Yuen is a 83-y.o. male. 83 y/o here to establish from Dr. Zamora. Pt being followed by Heme-onc and just finished (took last dose) of chemo for Lymphoma--follow up on Monday. Pt also with atrial Fibrillation on Aspirin only (recently taken off Plavix by Heme-onc) . Pt also has history of heart disease and Right Heart Failure s/p 4-vessel bypass recently. Also a history of HTN. Pt notes he gets dizzy upon standing at this time.It usually takes him about 10 seconds for his symptoms to danna and then he can walk without difficulty. No chest pain. While on Chemo, he was having copious diarrhea and required IV fluids frequently but not now. Pt notes firm stools and good urination, with clear to light yellow most of the time. Hehas a BP cuff at home and at times notes his systolic to be in the 80s but most of the time, is in the low 100s/70s. He has not fallen but he must grab on to something for stabilization. He denies any edema of the legs. Past Medical History: Diagnosis Date ? B-cell lymphoma (HCC) ? Basal cell carcinoma ? Cancer (HCC) bladder ? Coronary artery disease ? Diverticulosis ? DM II (diabetes mellitus, type II), controlled (HCC) ? Hyperlipemia ? Hypertension ? Influenza ? Ischemic cardiomyopathy ? Lymphoma (HCC) ? Need for shingles vaccine per records given jun 2016 ? Paroxysmal A-fib (HCC) ? Pneumococcal vaccination given per records. prvenar was given in apr 2016 ? Prostate enlargement ? Squamous cell cancer of scalp and skin of neck Family History Problem Relation Age of Onset ? Cancer Mother ? Cancer Sister breast Current Outpatient Medications Medication Sig ? Acalabrutinib (CALQUENCE) 100 MG Oral Cap Take 100 mg by mouth TWICE DAILY. ? Aspirin (ASPIR-81 PO) Take by mouth. ? atorvastatin (LIPITOR) 40 MG Oral Tab Take 1 Tab by mouth DAILY. ? clopidogrel (PLAVIX) 75 MG Oral Tab Take 75 mg by mouth DAILY. ? docusate sodium (COLACE) 100 MG Oral Cap Take 100 mg by mouth DAILY. ? finasteride (PROSCAR) 5 MG Oral Tab Take 1 Tab by mouth DAILY. ? gabapentin (NEURONTIN) 300 MG Oral Cap ? Lancets Does not apply Misc 100 Strips by Does not apply route TWICE DAILY. Brand:insurance approved Dx:DM2 non-Insulin dependent Test Blood Glucose 2 time(s) A DAY ? lisinopril (PRINIVIL, ZESTRIL) 2.5 MG Oral Tab Take 1 Tab by mouth DAILY. ? metoprolol (TOPROL XL) 25 MG Oral TABLET SR 24 HR Take 37.5 mg by mouth TWICE DAILY. ? ONE TOUCH ULTRA TEST STRIPS In Vitro Strip use as directed twice a day ? sitagliptin (JANUVIA) 100 MG Oral Tab Take 100 mg by mouth DAILY. ? spironolactone (ALDACTONE) 25 MG Oral Tab Take 12.5 mg by mouth DAILY. ? Tamsulosin HCl (FLOMAX) 0.4 MG Oral Cap TAKE 1 CAPSULE BY MOUTH DAILY ? valacyclovir (VALTREX) 500 MG Oral Tab TK 1 T PO BID No current facility-administered medications for this visit. No Known Allergies Social History Socioeconomic History ? Marital status: Spouse name: Not on file ? Number of children: Not on file ? Years of education: Not on file ? Highest education level: Not on file Occupational History ? Not on file Social Needs ? Financial resource strain: Not on file ? Food insecurity Worry: Not on file Inability: Not on file ? Transportation needs Medical: Not on file Non-medical: Not on file Tobacco Use ? Smoking status: Former Smoker ? Smokeless tobacco: Former User Substance and Sexual Activity ? Alcohol use: No ? Drug use: No ? Sexual activity: Not on file Lifestyle ? Physical activity Days per week: Not on file Minutes per session: Not on file ? Stress: Not on file Relationships ? Social connections Talks on phone: Not on file Gets together: Not on file Attends evangelical service: Not on file Active member of club or organization: Not on file Attends meetings of clubs or organizations: Not on file Relationship status: Not on file ? Intimate partner violence Fear of current or ex partner: Not on file Emotionally abused: Not on file Physically abused: Not on file Forced sexual activity: Not on file Other Topics Concern ? Back Care Not Asked ? Bike Helmet Not Asked ? Blood Transfusions Not Asked ? Caffeine Concern Not Asked ? Exercise Not Asked ? Hobby Hazards Not Asked ? International Travel Not Asked ? Service Not Asked ? Occupational Exposure Not Asked ? Seat Belt Not Asked ? Self-Exams Not Asked ? Sleep Concern Not Asked ? Special Diet Not Asked ? Stress Concern Not Asked ? Weight Concern Not Asked Social History Narrative ? Not on file Over the last 2 weeks, have you been feeling down, depressed, anxious, or hopeless?: 1 Over the past 2 weeks, have you felt little interest or pleasure in doing things ?: 1 REVIEW OF SYSTEMS: Review of Systems Constitutional: Negative for chills, diaphoresis, fever, malaise/fatigue and weight loss. HENT: Negative for congestion, sinus pain and sore throat. Respiratory: Negative for cough, hemoptysis, sputum production, shortness of breath and wheezing. Cardiovascular: Negative for chest pain, palpitations, orthopnea, claudication, leg swelling and PND. Gastrointestinal: Negative for abdominal pain, blood in stool, constipation, diarrhea, heartburn, nausea and vomiting. Genitourinary: Negative for dysuria, flank pain, frequency and urgency. Musculoskeletal: Negative for falls and myalgias. Neurological: Positive for dizziness. Negative for tingling, sensory change, loss of consciousness, weakness and headaches. Objective PHYSICAL EXAM: VITALS: BP 118/72 (BP Location: Left arm, Patient Position: Sitting) | Pulse 74 | Temp 96.9 F(36.1 C) (Tympanic) | Resp 20 | Ht 5' 7" (1.702 m) | Wt 164 lb 12.8 oz (74.8 kg) | SpO2 97%| BMI 25.81 kg/m Body mass index is 25.81 kg/m. Physical Exam Vitals signs and nursing note reviewed. Constitutional: General: He is not in acute distress. Appearance: Normal appearance. He is well-developed and normal weight. He is not ill-appearing, toxic-appearing or diaphoretic. HENT: Head: Normocephalic and atraumatic. Right Ear: Tympanic membrane and ear canal normal. There is no impacted cerumen. Left Ear: Tympanic membrane and ear canal normal. There is no impacted cerumen. Nose: Nose normal. No congestion or rhinorrhea. Mouth/Throat: Mouth: Mucous membranes are moist. Pharynx: Oropharynx is clear. No oropharyngeal exudate or posterior oropharyngeal erythema. Eyes: General: No scleral icterus. Right eye: No discharge. Left eye: No discharge. Conjunctiva/sclera: Conjunctivae normal. Pupils: Pupils are equal, round, and reactive to light. Neck: Musculoskeletal: Normal range of motion and neck supple. No neck rigidity or muscular tenderness. Thyroid: No thyromegaly. Vascular: No carotid bruit. Cardiovascular: Rate and Rhythm: Normal rate and regular rhythm. Pulses: Normal pulses. Heart sounds: Normal heart sounds. No murmur. No friction rub. No gallop. Pulmonary: Effort: Pulmonary effort is normal. No respiratory distress. Breath sounds: Normal breath sounds. No wheezing, rhonchi or rales. Abdominal: General: Abdomen is flat. Bowel sounds are normal. There is no distension. Palpations: Abdomen is soft. There is no mass. Tenderness: There is no abdominal tenderness. There is no guarding or rebound. Hernia: No hernia is present. Lymphadenopathy: Cervical: Cervical adenopathy (mild) present. Neurological: General: No focal deficit present. Mental Status: He is alert and oriented to person, place, and time. Psychiatric: Mood and Affect: Mood normal. Behavior: Behavior normal. ASSESSMENT / IMPRESSION: 1. Atrial fibrillation, chronic EKG today confirms A Fib with varied ventricular response--most paced with/ without capture. No ischemic changes and the rhythm is irregularly irregular. - AMBULATORY 12 LEAD EKG (GLOBAL) 2. Dizziness on standing Pt admits to dark urine so fluid status may be of concern but this is most likely secondary to a combination of medication dosage (Metoprolol XL 25 BID), heart rhythm and mild failure as noted by cardiology. It could also be some toxicity from the chemo although he received his last dose recently. Pt is able to catch himself but I am concerned that with BP as low as 80s at home, he may be unable to respond as quickly when he stands. I talked with his babbitter ( Dr. Francis) and we agreed to reduce his Metoprolol to 25 QD and see back in follow up. He was advised to manage his fluid intake to urinate every 3-4 hours with light color yellow as the goal. - AMBULATORY 12 LEAD EKG (GLOBAL) 3. Well adult exam Pneumovax given today. - CO PNEUMOVAX(DX CODE Z23) 4. Type 2 diabetes mellitus without complication, without long-term current use of insulin (HCC) Pt's diabetes is now resolved following his weight loss and with diet control on Chemo. When his appetite returns, I've advised he follow the Diabetic diet and maintain No More than 1800 calories. We will follow but his cholesterol is in great shape for someone with DM and Heart Disease. Plan Follow up 3 months. Perform 5-Day BP check next week and let me know about his symptoms at that time. Author: Dk Dubon MD 07/29/2019 10:18 documented in this encounter Plan of Treatment Date Type Specialty Care Team Description 11/27/2019 Office Visit Family Practice Dk Dubon MD [address] [place] [address] [phone] Name Type Priority Associated Diagnoses Order Schedule AMBULATORY 12 LEAD EKG EKG Routine Atrial fibrillation, Ordered: 07/29/2019 (GLOBAL) chronic Dizziness on standing Health Maintenance Due Date Last Done Comments Diabetic Eye Exam 1935 HIV SCREENING 09[birth year]17/1950 FOOT EXAM 1953 PNEUMOCOCCAL 65+YRS (2 of 2 04/05/2017 04/05/2016 - PCV13) URINE MICROALBUMIN 05/24/2019 05/24/2018, 11/23/2017, 08/24/2017 ZOSTER IMMUNIZATION SERIES 07/23/2019 05/28/2019, 06/21/2016 (3 of 3) HEMOGLOBIN A1C 01/23/2020 07/25/2019, 11/22/2018, 05/24/2018, Additional history exists MEDICARE ANNUAL WELLNESS 05/24/2020 Postponed from VISIT 1935 (Other) DEPRESSION SCREENING 07/29/2020 07/29/2019 FALL RISK ASSESSMENT 07/29/2020 07/29/2019, 07/29/2019 DTaP/Tdap/Td Vaccines (2 - 09/08/2021 09/09/2011 Tdap) INFLUENZA VACCINE Completed 03/06/2019, 02/03/2019, 03/16/2016, Additional history exists HEPATITIS A IMMUNIZATION Aged Out No longer eligible SERIES based on patient's age to complete this topic HPV IMMUNIZATION SERIES Aged Out No longer eligible based on patient's age to complete this topic MENINGOCOCCAL VACCINE IMM Aged Out No longer eligible based on patient's age to complete this topic documented as of this encounter Goals Goal Patient Goal Associated Recent Patient-Stated? Author Type Problems Progress Blood Pressure Blood Pressure 118/72 Ihsan Preciado < 140/90 (07/29/2019 DO Luis Enrique 9:57 AM EST) Note: This is an individualized treatment (blood pressure) goal for Oskar Yuen: Displayed above (on the left) is your goal for blood pressure control. Your most recent blood pressure is also shown above, on the right. You should try to achieve blood pressures that are lower than your goal listed above (on the left). Glycohemoglobin A1c < 7.0 Diabetes 5.5 (07/25/2019 9:43 AM No Ihsan Arguelles DO EST) Note: This is an individualized treatment (diabetes control, HgbA1C) goal for Oskar Yuen: Displayed above is your progress towards your HgbA1C goal. Your goal is shown above (on the left); your most recent HgbA1C is shown on the right. Note that lower numbers are better. Keep immunizations current Lifestyle No Ihsan Arguelles DO Note: This is an individualized lifestyle goal for Oskar Yuen: Please be sure to keep up-to-date on recommended immunizations. For example, this would include a yearly influenza vaccine. Immunization status can be seen by looking at the Health Maintenance sections of your [facility], Plan of Care, and any After Visit Summaries. Weight loss vs. 18 mo Lifestyle 30.7 (07/29/2019 9:57 AM No Ihsan Arguelles DO max (lbs) >= 10 EST) Note: This is an individualized lifestyle goal for Oskar Yuen: Your body mass index (BMI) is more than 30. You should lose weight. A reasonable starting goal is to lose 10 pounds. Displayed above is how many pounds you have lost thus far towards your 10 pound weight loss goal. Take all prescribed medications as directed Self-management No Ihsan Arguelles DO Note: This is an individualized self-management goal for Oskar Yuen: Please take all prescribed medications as directed. 1. Do not skip doses. If you cannot afford your medications, talk with your doctor. 2. Use a pill reminder system such as a pill box if needed. Your pharmacist can help you with this. 3. Contact your Pharmacy 5 days before your medication runs out. If you cannot take your medications for any reasons, talk with your doctor. 4. Please bring all of your medication bottles and inhalers (or a list of all your medications/inhalers) with you to every visit. Potential barriers to meeting all of your care plan goals will continue to be addressed on an ongoing basis. documented as of this encounter Results Not on filedocumented in this encounter Visit Diagnoses Diagnosis Atrial fibrillation, chronic Atrial fibrillation Dizziness on standing Well adult exam Routine general medical examination at a health care facility Type 2 diabetes mellitus without complication, without long-term current use of insulin (HCC) documented in this encounter Insurance Payer Benefit Plan / Subscriber ID Effective Dates Phone Address Type Group MEDICARE MEDICARE PART A [id number] 2001-Present Medicare & B [employer] COMMERCIAL AETNA [id number] 2007-[facility] Aetna t Guarantor Name Account Type Relation to Date of Phone Billing Address Patient Oskar Yuen Personal/Famil 1935 [phone] [phone] [place], [place] (Work) [id number] documented as of this encounter
[2019-08-07 11:44] VITALS: BP 110/53
--- NOTE | 2019-08-07 12:00 | UC ---
Lower Extremity/Ankle HPI - HPI Summary HPI Summary: 83-year-old male who complains of chronic bilateral leg pain over the past 2 months. He also states he's had 30 pound weight loss in one month. When asked what changed today he stated "Oh nothing, I was in the area so I thought I'd stop by. I was just at my heart doctors and he said my heart is great". His primary care provider and his specialist who is following him for his lymphoma is aware of his chronic leg pain and his weight loss. He had a PET scan 2 days ago and is awaiting those results and has an appointment with his primary care provider on Monday to review those. His physician told him to drink BOOST, for weight gain, however it gave him diarrhea so he stopped drinking it. He states occasionally he will have some swelling of his lower legs and feet however not today. It was noted that his mid-calf ocks are very tight and causes a skin indentation from them. He denies any chest pain or difficulty breathing. - History of Current Complaint Chief Complaint: UCLowerExtremity Stated Complaint: LEG PAIN Time Seen by Provider: 08/07/19 12:00 Hx Obtained From: Patient Onset/Duration: Gradual Onset, Other - The bilateral lower leg pain has been for the past 2 months with no known injury. The weight loss has been over the past month. Patient states "it's because I haven't been eating". Severity Initially: Mild Severity Currently: Mild Pain Intensity: 8 Aggravating Factor(s): Ambulation Alleviating Factor(s): Rest Able to Bear Weight: Yes - Allergies/Home Medications Allergies/Adverse Reactions: Allergies Allergy/AdvReac Type Severity Reaction Status Date / Time No Known Allergies Allergy Verified 08/07/19 11:44 Home Medications: Home Medications Aspirin [Aspirin Adult Low Dose 81 MG] 81 mg PO DAILY 07/17/16 [History Confirmed 08/07/19] Atorvastatin* [Lipitor 40 MG*] 40 mg PO QPM 07/17/16 [History Confirmed 08/07/19 ] Finasteride TAB* [Proscar TAB*] 5 mg PO DAILY 07/17/16 [History Confirmed ] Tamsulosin CAP* [Flomax CAP*] 0.4 mg PO DAILY 07/27/18 [History Confirmed ] Acalabrutinib [Calquence] 100 mg PO BID #0 08/02/18 [Rx Confirmed 08/07/19] PMH/Surg Hx/FS Hx/Imm Hx Previously Healthy: Yes Endocrine History: Diabetes Cardiovascular History: Hypertension - Surgical History Surgical History: Yes Surgery Procedure, Year, and Place: Surgical removal of bladder tumor. quadruple bypass 03/20 - Family History Known Family History: Positive: None, Cardiac Disease, Other - cancer - Social History Occupation: Retired Alcohol Use: None Substance Use Type: None Smoking Status (MU): Former Smoker - Immunization History Most Recent Influenza Vaccination: 2015 Most Recent Tetanus Shot: unk Most Recent Pneumonia Vaccination: 2016 Review of Systems All Other Systems Reviewed And Are Negative: Yes Musculoskeletal: Positive: Other: - Bilateral leg pain which has been chronic over the past 2 months of which his primary care physician is aware. Is Patient Immunocompromised?: Yes - patient is being followed by a specialist for lymphoma. Physical Exam Triage Information Reviewed: Yes Appearance: Well-Appearing, No Pain Distress, Well-Nourished Vital Signs: Initial Vital Signs Temp 98.6 F 08/07/19 11:39 Pulse 70 08/07/19 11:39 Resp 18 08/07/19 11:39 BP 110/53 08/07/19 11:39 Pulse Ox 99 08/07/19 11:39 Vital Signs Reviewed: Yes Eyes: Positive: Conjunctiva Clear Respiratory: Positive: Lungs clear, Normal breath sounds, No respiratory distress, No accessory muscle use Cardiovascular: Positive: RRR, No Murmur, Pulses Normal, Brisk Capillary Refill Musculoskeletal Exam: Normal Musculoskeletal: Positive: Other: - Good peripheral pulses, neuro sensation and capillary refill. No swelling of his feet or ankles today. Calves are nontender. Neurological Exam: Normal Psychological Exam: Normal Skin: Positive: Other - The patient's socks are fairly tight mid calf to create a skin indentation. Lower Extremity Course/Dx - Course Course Of Treatment: This is a very nice likable 83-year-old male who is comfortable here. He has no new complaints today he was just in the area and wanted to stop by to see if we had any information or answer to his chronic leg pain and weight loss. He does have an appointment this Monday with the specialist and he just came from the heart doctor today who stated his heart was great. Patient does have a pacemaker. I advised the patient to keep the appointment with his primary care provider on Monday. I did advise him to wear socks that do not cause an indentation in his skin because that would lead to an increased chance of foot and ankle edema. Patient is agreeable to this plan of action. He can continue Tylenol for his leg pain. - Differential Dx/Diagnosis Provider Diagnosis: Bilateral leg pain, History of weight loss Discharge ED - Sign-Out/Discharge Documenting (check all that apply): Patient Departure All imaging exams completed and their final reports reviewed: No Studies - Discharge Plan Condition: Good Disposition: HOME Referrals: Ihsan Arguelles DO [Primary Care Provider] - Additional Instructions: Continue to take Tylenol for your leg pain. Wear looser socks. Keep your appointment with your primary care provider this Monday. - Billing Disposition and Condition Condition: GOOD Disposition: Home
== END 2019-08-07 12:15 | disposition home or self-care (01) ==
LOC: UCEAST 11:18
DX: M79.605 Pain in left leg (principal); M79.604 Pain in right leg; R63.4 Abnormal weight loss; I10 Essential (primary) hypertension; E78.5 Hyperlipidemia, unspecified; C85.95 Non-Hodgkin lymphoma, unspecified, lymph nodes of inguinal region and lower limb; Z79.82 Long term (current) use of aspirin; Z79.899 Other long term (current) drug therapy; Z87.891 Personal history of nicotine dependence
CPT/HCPCS: 99211; G0463

== ENCOUNTER 2021-02-21 01:07 | Inpatient (IN) ==
[2021-02-21 02:24] LABS: Hematocrit 36 % (42-52); Hemoglobin 11.7 g/dL (14.0-18.0); Mean Corpuscular HGB Conc 32 g/dL (31-36); Mean Corpuscular Hemoglobin 30 pg (27-31); Mean Corpuscular Volume 91 fL (80-94); Platelet Count 61 10^3/uL (150-450); Red Blood Count 3.96 10^6 /uL (4.18-5.48); Red Cell Distribution Width 21 % (10-15); White Blood Count 3.3 10^3/uL (3.5-10.8)
[2021-02-21] MEDS ORDERED: Cefepime 2 GM in NS 0.9% 50 ML 50 ML IVPB ONE (02:34)
[2021-02-21 02:36] LABS: ALT 27 U/L (7-52); Albumin 3.5 g/dL (3.2-5.2); Albumin/Globulin Ratio 1.4 (1-3); Alkaline Phosphatase 136 U/L (35-149); Blood Urea Nitrogen 21 mg/dL (6-24); C Reactive Protein 84.96 mg/L (<8.01); CO2 Carbon Dioxide 22 mmol/L (22-32); Chloride 104 mmol/L (101-111); EGFR African American 103.9 (>60); EGFR Non-African American 85.9 (>60); Globulin 2.5 g/dL (2-4); Glucose 147 mg/dL (70-100); Sodium 138 mmol/L (135-145)
[2021-02-21 02:43] LABS: ABS Monocytes 0.2 10^3/ul (0-0.8); Eosinophil % 0.6 %; Lymphocyte % 29.4 %; Nucleated Red Blood Cells % 0.1
[2021-02-21 02:44] LABS: Anion Gap 12 mmol/L (2-11); Troponin I 0.04 ng/mL (<0.03)
[2021-02-21 02:46] LABS: Anisocytosis 2+
[2021-02-21 02:47] LABS: Acanthocytes 1+; Burr Cells 1+; Polychromasia 1+
[2021-02-21] MEDS ORDERED: NS 0.9% 50 ML 50 ML ONE (03:07)
[2021-02-21 03:46] LABS: Rapid COVID-19 Molecular Detected (Undetected)
[2021-02-21 03:54] LABS: Influenza A Molecular Negative (Negative); Influenza B Molecular Negative (Negative)
[2021-02-21] MEDS ORDERED: Cefepime 2 GM IV - ED ONCE IV ONE (04:00)
[2021-02-21] MEDS ORDERED: Remdesivir 100 mg Vial 200 MG in NS 0.9% 250 ml 210 ML IV ONE (04:41)
[2021-02-21] MEDS ORDERED: Baricitinib 2 MG TAB (NF) PO ONE (05:00)
[2021-02-21 06:49] LABS: Urine Appearance Turbid; Urine Bilirubin Negative (Negative); Urine Blood Negative (Negative); Urine Color Amber; Urine Glucose Negative (Negative); Urine Ketones Negative (Negative); Urine Nitrite Negative (Negative); Urine Protein 2+(100 mg/dL) (Negative); Urine Specific Gravity 1.016 (1.002-1.030); Urine Urobilinogen Negative (Negative)
[2021-02-21 06:56] LABS: Urine Bacteria 1+ (Absent); Urine Red Blood Cell 3+(>10/hpf) (Absent); Urine Squamous Epithelial Cell Present (Absent); Urine White Blood Cell 3+(>20/hpf) (Absent)
[2021-02-21] MEDS: Azithromycin 500 mg/250 ml NS 500 MG/250 ML BAG IVPB SCH (07:45)
[2021-02-21 08:21] LABS: INR 1.2 (0.86-1.15)
[2021-02-21 08:26] LABS: AST Redraw 31 U/L (13-39); Potassium Redraw 3.6 mmol/L (3.5-5.0)
[2021-02-21 08:31] LABS: Troponin I 0.05 ng/mL (<0.03)
[2021-02-21] MEDS ORDERED: Furosemide 40 mg/4 ml IV VIAL IV SLOW PU ONE (09:57)
[2021-02-21] MEDS ORDERED: Albuterol HFA INHALER 8 gm MDI INH PRN (11:12)
[2021-02-21 11:23] LABS: Troponin I 0.05 ng/mL (<0.03)
[2021-02-21] MEDS ORDERED: Magnesium Sulfate 2 gm BAG 2 GM/50 ML BAG IVPB ONE (11:55)
[2021-02-21] MEDS ORDERED: Magnesium Sulfate 2 gm BAG 2 GM/50 ML BAG ONE (12:02)
[2021-02-21] MEDS: cefTRIAXone 1 gm/50 mL NS BAG 1 GM/50 ML BAG IVPB SCH (14:25)
[2021-02-21] MEDS ORDERED: Cefepime 2 GM in Dextrose 2 GM/50 ML BAG IV SCH (16:00)
[2021-02-21 17:36] LABS: Calcium 8.7 mg/dL (8.6-10.3); EGFR African American 125.8 (>60); Magnesium 2.3 mg/dL (1.9-2.7); Phosphorus 3.4 mg/dL (2.5-5.0); Potassium 3.1 mmol/L (3.5-5.0)
[2021-02-21] MEDS: KCL 20 MEQ/100 ML IVPREMIX 20 MEQ/100 ML BAG IV SCH ×2 (19:33→23:00)
[2021-02-22] MEDS: CMCS:Baricitinib 2 MG TAB (NF) PO SCH (05:27)
[2021-02-22 05:55] LABS: Hematocrit 34 % (42-52); Hemoglobin 11.1 g/dL (14.0-18.0); Mean Corpuscular HGB Conc 33 g/dL (31-36); Mean Corpuscular Hemoglobin 30 pg (27-31); Mean Corpuscular Volume 90 fL (80-94); Mean Platelet Volume 10.3 fL (7.4-10.4); Platelet Count 62 10^3/uL (150-450); Red Blood Count 3.72 10^6 /uL (4.18-5.48); Red Cell Distribution Width 21 % (10-15); White Blood Count 3.4 10^3/uL (3.5-10.8)
[2021-02-22 06:02] LABS: INR 1.3 (0.86-1.15)
[2021-02-22 06:14] LABS: Albumin/Globulin Ratio 1.4 (1-3); Calcium 8.5 mg/dL (8.6-10.3); EGFR African American 152.4 (>60); EGFR Non-African American 125.9 (>60); Globulin 2.1 g/dL (2-4); Potassium 3.7 mmol/L (3.5-5.0); Total Bilirubin 1.6 mg/dL (0.2-1.0); Total Protein 5.1 g/dL (6.4-8.9)
[2021-02-22 06:24] LABS: ABS Lymphocytes 0.7 10^3/ul (1.0-4.8); ABS Monocytes 0.2 10^3/ul (0-0.8); ABS Neutrophils 2.4 10^3/ul (1.5-7.7); Eosinophil % 0.1 %; Lymphocyte % 21.7 %; Nucleated Red Blood Cells % 0.1
[2021-02-22] MEDS: Azithromycin 500 mg/250 ml NS 500 MG/250 ML BAG IVPB SCH (07:11)
[2021-02-22] MEDS: Remdesivir 100 mg Vial 100 MG in NS 0.9% 250 ml 230 ML IV SCH (08:50)
[2021-02-22] MEDS: Acetylcysteine ORAL SOL 200 mg/ml 30 ml VIAL PO SCH ×2 (10:46→13:06)
[2021-02-22] MEDS: Acetylcysteine 600mgCAP(RENAL) PO SCH ×2 (13:32→21:03)
[2021-02-22] MEDS: cefTRIAXone 1 gm/50 mL NS BAG 1 GM/50 ML BAG IVPB SCH (16:41)
[2021-02-22] MEDS ORDERED: Furosemide 40 mg/4 ml IV VIAL IV SLOW PU ONE (18:35)
[2021-02-23 05:23] LABS: ABS Monocytes 0.4 10^3/ul (0-0.8); ABS Neutrophils 3.7 10^3/ul (1.5-7.7); Hematocrit 37 % (42-52); Hemoglobin 12.2 g/dL (14.0-18.0); Lymphocyte % 19.5 %; Mean Corpuscular HGB Conc 33 g/dL (31-36); Mean Corpuscular Hemoglobin 30 pg (27-31); Mean Corpuscular Volume 90 fL (80-94); Mean Platelet Volume 10.1 fL (7.4-10.4); Platelet Count 83 10^3/uL (150-450); Red Cell Distribution Width 20 % (10-15); White Blood Count 5.2 10^3/uL (3.5-10.8)
[2021-02-23 05:28] LABS: Calcium 8.7 mg/dL (8.6-10.3); EGFR African American 134.4 (>60); EGFR Non-African American 111.1 (>60); Magnesium 2.1 mg/dL (1.9-2.7); Phosphorus 3.8 mg/dL (2.5-5.0); Potassium 3.5 mmol/L (3.5-5.0)
[2021-02-23] MEDS ORDERED: Potassium Chlor 20 meq TAB.ER PO ONE (05:45)
[2021-02-23] MEDS ORDERED: KCL 20 MEQ/100 ML IVPREMIX 20 MEQ/100 ML BAG IV ONE (05:45)
[2021-02-23] MEDS ORDERED: Furosemide 40 mg/4 ml IV VIAL IV SLOW PU ONE (05:56)
[2021-02-23] MEDS: Azithromycin 500 mg/250 ml NS 500 MG/250 ML BAG IVPB SCH (06:09)
[2021-02-23] MEDS: CMCS:Baricitinib 2 MG TAB (NF) PO SCH (06:23)
[2021-02-23] MEDS: Acetylcysteine 600mgCAP(RENAL) PO SCH ×2 (08:21→20:50)
[2021-02-23] MEDS: Aspirin EC 81 mg TAB.EC (enteric coated) PO SCH (08:22)
[2021-02-23] MEDS: Remdesivir 100 mg Vial 100 MG in NS 0.9% 250 ml 230 ML IV SCH (09:24)
[2021-02-23] MEDS: Enoxaparin 40 MG/0.4 ML SYR SUBCUT SCH ×2 (13:35→23:10)
[2021-02-23] MEDS: cefTRIAXone 1 gm/50 mL NS BAG 1 GM/50 ML BAG IVPB SCH (16:24)
[2021-02-24] MEDS: CMCS:Baricitinib 2 MG TAB (NF) PO SCH (05:02)
[2021-02-24 05:21] LABS: Hematocrit 35 % (42-52); Hemoglobin 11.5 g/dL (14.0-18.0); Mean Corpuscular HGB Conc 33 g/dL (31-36); Mean Corpuscular Hemoglobin 30 pg (27-31); Mean Corpuscular Volume 90 fL (80-94); Platelet Count 80 10^3/uL (150-450); Red Blood Count 3.86 10^6 /uL (4.18-5.48); Red Cell Distribution Width 20 % (10-15); White Blood Count 4.6 10^3/uL (3.5-10.8)
[2021-02-24 05:39] LABS: Calcium 8.5 mg/dL (8.6-10.3); EGFR African American 136.7 (>60); Magnesium 2.1 mg/dL (1.9-2.7); Phosphorus 3.2 mg/dL (2.5-5.0); Potassium 4.1 mmol/L (3.5-5.0)
[2021-02-24] MEDS: Azithromycin 500 mg/250 ml NS 500 MG/250 ML BAG IVPB SCH (06:27)
[2021-02-24] MEDS: Acetylcysteine 600mgCAP(RENAL) PO SCH ×2 (09:10→20:16)
[2021-02-24] MEDS: Aspirin EC 81 mg TAB.EC (enteric coated) PO SCH (09:10)
[2021-02-24] MEDS: Remdesivir 100 mg Vial 100 MG in NS 0.9% 250 ml 230 ML IV SCH (09:22)
[2021-02-24] MEDS ORDERED: Furosemide 20 mg/2 ml IV VIAL IV ONE (10:46)
[2021-02-24] MEDS: Enoxaparin 40 MG/0.4 ML SYR SUBCUT SCH (11:57)
[2021-02-24] MEDS: cefTRIAXone 1 gm/50 mL NS BAG 1 GM/50 ML BAG IVPB SCH (15:45)
[2021-02-24] MEDS ORDERED: Furosemide 40 mg/4 ml IV VIAL IV SLOW PU ONE (16:35)
[2021-02-25] MEDS: Enoxaparin 40 MG/0.4 ML SYR SUBCUT SCH ×3 (00:20→22:42)
[2021-02-25] MEDS: CMCS:Baricitinib 2 MG TAB (NF) PO SCH (05:23)
[2021-02-25] MEDS: Azithromycin 500 mg/250 ml NS 500 MG/250 ML BAG IVPB SCH (06:06)
[2021-02-25] MEDS: Aspirin EC 81 mg TAB.EC (enteric coated) PO SCH (09:17)
[2021-02-25] MEDS: Acetylcysteine 600mgCAP(RENAL) PO SCH ×2 (09:18→19:18)
[2021-02-25] MEDS: Remdesivir 100 mg Vial 100 MG in NS 0.9% 250 ml 230 ML IV SCH (09:45)
[2021-02-25] MEDS ORDERED: Furosemide 20 mg/2 ml IV VIAL IV ONE (11:35)
[2021-02-25] MEDS ORDERED: Furosemide 40 mg/4 ml IV VIAL IV SCH (12:00)
[2021-02-25] MEDS: cefTRIAXone 1 gm/50 mL NS BAG 1 GM/50 ML BAG IVPB SCH (18:24)
[2021-02-26 04:28] LABS: Hematocrit 36 % (42-52); Hemoglobin 12.1 g/dL (14.0-18.0); Mean Corpuscular HGB Conc 34 g/dL (31-36); Mean Corpuscular Hemoglobin 30 pg (27-31); Mean Corpuscular Volume 89 fL (80-94); Mean Platelet Volume 9.5 fL (7.4-10.4); Platelet Count 108 10^3/uL (150-450); Red Blood Count 4.01 10^6 /uL (4.18-5.48); Red Cell Distribution Width 20 % (10-15); White Blood Count 4.2 10^3/uL (3.5-10.8)
[2021-02-26 04:49] LABS: Calcium 8.6 mg/dL (8.6-10.3); EGFR African American 152.4 (>60); EGFR Non-African American 125.9 (>60); Magnesium 2.1 mg/dL (1.9-2.7); Phosphorus 2.6 mg/dL (2.5-5.0); Potassium 3.9 mmol/L (3.5-5.0)
[2021-02-26] MEDS: CMCS:Baricitinib 2 MG TAB (NF) PO SCH (05:03)
[2021-02-26] MEDS ORDERED: KCL 10 MEQ/50 ML IVPREMIX 10 MEQ/50 ML BAG IV ONE (07:12)
[2021-02-26] MEDS: Aspirin EC 81 mg TAB.EC (enteric coated) PO SCH (08:11)
[2021-02-26] MEDS: Acetylcysteine 600mgCAP(RENAL) PO SCH ×2 (08:11→19:23)
[2021-02-26] MEDS: Furosemide 20 mg/2 ml IV VIAL IV SCH (08:12)
[2021-02-26] MEDS: Enoxaparin 40 MG/0.4 ML SYR SUBCUT SCH ×2 (11:01→22:06)
[2021-02-27] MEDS: CMCS:Baricitinib 2 MG TAB (NF) PO SCH (04:20)
[2021-02-27 04:30] LABS: Hematocrit 38 % (42-52); Hemoglobin 12.4 g/dL (14.0-18.0); Mean Corpuscular HGB Conc 33 g/dL (31-36); Mean Corpuscular Hemoglobin 29 pg (27-31); Mean Corpuscular Volume 90 fL (80-94); Platelet Count 130 10^3/uL (150-450); Red Blood Count 4.23 10^6 /uL (4.18-5.48); Red Cell Distribution Width 20 % (10-15)
[2021-02-27 04:46] LABS: Calcium 8.6 mg/dL (8.6-10.3); EGFR African American 155.3 (>60); EGFR Non-African American 128.4 (>60); Phosphorus 2.5 mg/dL (2.5-5.0); Potassium 3.9 mmol/L (3.5-5.0)
[2021-02-27] MEDS: Acetylcysteine 600mgCAP(RENAL) PO SCH ×2 (09:11→21:43)
[2021-02-27] MEDS: Furosemide 20 mg/2 ml IV VIAL IV SCH (09:11)
[2021-02-27] MEDS: Aspirin EC 81 mg TAB.EC (enteric coated) PO SCH (09:11)
[2021-02-27] MEDS: Enoxaparin 40 MG/0.4 ML SYR SUBCUT SCH (12:41)
[2021-02-28] MEDS: Enoxaparin 40 MG/0.4 ML SYR SUBCUT SCH ×3 (00:05→23:21)
[2021-02-28] MEDS: CMCS:Baricitinib 2 MG TAB (NF) PO SCH (05:50)
[2021-02-28 06:58] LABS: ABS Lymphocytes 0.3 10^3/ul (1.0-4.8); ABS Monocytes 0.3 10^3/ul (0-0.8); ABS Neutrophils 3.7 10^3/ul (1.5-7.7); Eosinophil % 0.5 %; Hematocrit 40 % (42-52); Hemoglobin 13.4 g/dL (14.0-18.0); Lymphocyte % 7.8 %; Mean Corpuscular HGB Conc 34 g/dL (31-36); Mean Corpuscular Hemoglobin 30 pg (27-31); Mean Corpuscular Volume 88 fL (80-94); Mean Platelet Volume 8.9 fL (7.4-10.4); Platelet Count 148 10^3/uL (150-450); Red Blood Count 4.48 10^6 /uL (4.18-5.48); Red Cell Distribution Width 20 % (10-15); White Blood Count 4.4 10^3/uL (3.5-10.8)
[2021-02-28 07:17] LABS: Calcium 8.9 mg/dL (8.6-10.3); EGFR African American 155.3 (>60); EGFR Non-African American 128.4 (>60); Magnesium 2.1 mg/dL (1.9-2.7); Potassium 3.6 mmol/L (3.5-5.0)
[2021-02-28] MEDS: Acetylcysteine 600mgCAP(RENAL) PO SCH ×2 (09:14→23:21)
[2021-02-28] MEDS: Furosemide 20 mg/2 ml IV VIAL IV SCH (09:14)
[2021-02-28] MEDS: Aspirin EC 81 mg TAB.EC (enteric coated) PO SCH (09:14)
[2021-02-28] MEDS ORDERED: Furosemide 20 mg/2 ml IV VIAL IV ONE (15:00)
[2021-03-01] MEDS: CMCS:Baricitinib 2 MG TAB (NF) PO SCH (05:46)
[2021-03-01] MEDS ORDERED: Potassium Chlor 20 meq TAB.ER PO ONE (08:28)
[2021-03-01] MEDS: Acetylcysteine 600mgCAP(RENAL) PO SCH ×2 (09:22→20:06)
[2021-03-01] MEDS: Aspirin EC 81 mg TAB.EC (enteric coated) PO SCH (09:23)
[2021-03-01] MEDS: Furosemide 20 mg/2 ml IV VIAL IV SCH ×2 (09:23→10:05)
[2021-03-01 11:04] LABS: Calcium 8.7 mg/dL (8.6-10.3); EGFR African American 121.9 (>60); EGFR Non-African American 100.8 (>60); Potassium 3.8 mmol/L (3.5-5.0)
[2021-03-01] MEDS: Enoxaparin 40 MG/0.4 ML SYR SUBCUT SCH (12:52)
[2021-03-01 16:28] LABS: C Reactive Protein 18.55 mg/L (<8.01)
[2021-03-02] MEDS: Enoxaparin 40 MG/0.4 ML SYR SUBCUT SCH ×3 (00:46→23:38)
[2021-03-02] MEDS: CMCS:Baricitinib 2 MG TAB (NF) PO SCH (04:27)
[2021-03-02] MEDS: Aspirin EC 81 mg TAB.EC (enteric coated) PO SCH (09:48)
[2021-03-02] MEDS: Acetylcysteine 600mgCAP(RENAL) PO SCH ×2 (09:48→21:34)
[2021-03-02] MEDS: Furosemide 20 mg/2 ml IV VIAL IV SCH (09:54)
[2021-03-03] MEDS: CMCS:Baricitinib 2 MG TAB (NF) PO SCH (04:17)
[2021-03-03 08:28] LABS: ABS Lymphocytes 0.8 10^3/ul (1.0-4.8); ABS Monocytes 0.4 10^3/ul (0-0.8); ABS Neutrophils 5.7 10^3/ul (1.5-7.7); Eosinophil % 0.1 %; Hematocrit 41 % (42-52); Hemoglobin 13.4 g/dL (14.0-18.0); Lymphocyte % 11.9 %; Mean Corpuscular HGB Conc 33 g/dL (31-36); Mean Corpuscular Hemoglobin 30 pg (27-31); Mean Corpuscular Volume 90 fL (80-94); Mean Platelet Volume 8.8 fL (7.4-10.4); Platelet Count 139 10^3/uL (150-450); Red Blood Count 4.52 10^6 /uL (4.18-5.48); Red Cell Distribution Width 20 % (10-15); White Blood Count 6.9 10^3/uL (3.5-10.8)
[2021-03-03 08:37] LABS: EGFR African American 179.2 (>60); EGFR Non-African American 148.1 (>60); Potassium 4.6 mmol/L (3.5-5.0)
[2021-03-03] MEDS: Acetylcysteine 600mgCAP(RENAL) PO SCH ×2 (11:10→22:35)
[2021-03-03] MEDS: Aspirin EC 81 mg TAB.EC (enteric coated) PO SCH (11:10)
[2021-03-03] MEDS: Furosemide 20 mg/2 ml IV VIAL IV SCH (11:14)
[2021-03-03] MEDS: Enoxaparin 40 MG/0.4 ML SYR SUBCUT SCH (13:01)
[2021-03-04] MEDS: Enoxaparin 40 MG/0.4 ML SYR SUBCUT SCH ×2 (00:40→10:00)
[2021-03-04] MEDS ORDERED: CMCS:Baricitinib 2 MG TAB (NF) PO SCH (09:00)
[2021-03-04] MEDS: Furosemide 20 mg/2 ml IV VIAL IV SCH (10:00)
[2021-03-04] MEDS: Aspirin EC 81 mg TAB.EC (enteric coated) PO SCH (10:01)
[2021-03-04] MEDS: Acetylcysteine 600mgCAP(RENAL) PO SCH (10:01)
[2021-03-04 11:01] VITALS: BP 95/59
== END 2021-03-04 14:49 | disposition swing bed (61) | DRG 871 ==
LOC: ED 01:07 → ICU 07:14 → SUATTDRO 07:14 → ICU 08:44 → MED 02-27 17:03
PROVIDERS: ADMIT Internal Medicine; ATTEND Internal Medicine

== ENCOUNTER 2021-03-04 15:47 | Inpatient (IN) ==
[2021-03-04] MEDS ORDERED: Albuterol HFA INHALER 8 gm MDI INH PRN (16:03)
[2021-03-04 21:49] LABS: Rapid COVID-19 Molecular Detected (Undetected)
[2021-03-05] MEDS: Aspirin EC 81 mg TAB.EC (enteric coated) PO SCH (09:22)
[2021-03-05] MEDS: Baricitinib 2 MG TAB (NF) PO SCH (09:25)
[2021-03-06] MEDS: Baricitinib 2 MG TAB (NF) PO SCH (09:10)
[2021-03-06] MEDS: Aspirin EC 81 mg TAB.EC (enteric coated) PO SCH (09:11)
[2021-03-07] MEDS: Aspirin EC 81 mg TAB.EC (enteric coated) PO SCH (09:00)
[2021-03-08] MEDS: Aspirin EC 81 mg TAB.EC (enteric coated) PO SCH (08:34)
[2021-03-09] MEDS: Aspirin EC 81 mg TAB.EC (enteric coated) PO SCH (08:47)
[2021-03-10] MEDS: Aspirin EC 81 mg TAB.EC (enteric coated) PO SCH (08:45)
[2021-03-10 12:39] LABS: Rapid COVID-19 Molecular Detected (Undetected)
[2021-03-11] MEDS: Aspirin EC 81 mg TAB.EC (enteric coated) PO SCH (08:31)
[2021-03-12] MEDS: Aspirin EC 81 mg TAB.EC (enteric coated) PO SCH (08:40)
[2021-03-13 06:57] LABS: ABS Eosinophils 0.1 10^3/ul (0-0.6); ABS Lymphocytes 0.5 10^3/ul (1.0-4.8); ABS Monocytes 0.3 10^3/ul (0-0.8); ABS Neutrophils 4.3 10^3/ul (1.5-7.7); Eosinophil % 1.6 %; Hematocrit 35 % (42-52); Lymphocyte % 10.5 %; Mean Corpuscular HGB Conc 34 g/dL (31-36); Mean Corpuscular Hemoglobin 30 pg (27-31); Mean Corpuscular Volume 89 fL (80-94); Mean Platelet Volume 8.5 fL (7.4-10.4); Platelet Count 78 10^3/uL (150-450); Red Blood Count 3.96 10^6 /uL (4.18-5.48); Red Cell Distribution Width 20 % (10-15); White Blood Count 5.2 10^3/uL (3.5-10.8)
[2021-03-13 07:07] LABS: Albumin 2.7 g/dL (3.2-5.2); Calcium 8.8 mg/dL (8.6-10.3); Globulin 2.6 g/dL (2-4); Magnesium 1.6 mg/dL (1.9-2.7); Potassium 4.3 mmol/L (3.5-5.0); Total Bilirubin 1.5 mg/dL (0.2-1.0); Total Protein 5.3 g/dL (6.4-8.9)
[2021-03-13] MEDS ORDERED: Magnesium Sulfate IV 3 GM in NS 0.9% 100 ml BAG 100 ML IVPB ONE (07:40)
[2021-03-13] MEDS: Enoxaparin 40 MG/0.4 ML SYR SUBCUT SCH (08:20)
[2021-03-13] MEDS: Aspirin EC 81 mg TAB.EC (enteric coated) PO SCH (08:20)
[2021-03-14] MEDS: Aspirin EC 81 mg TAB.EC (enteric coated) PO SCH (09:26)
[2021-03-14] MEDS: Enoxaparin 40 MG/0.4 ML SYR SUBCUT SCH (09:26)
[2021-03-14 11:36] LABS: Rapid COVID-19 Molecular Detected (Undetected)
[2021-03-14] MEDS: Metoprolol Tartrate 5 mg VIAL 5 ml VIAL (1 mg/ml) IV PRN (12:27)
[2021-03-15] MEDS: Enoxaparin 40 MG/0.4 ML SYR SUBCUT SCH (10:03)
[2021-03-15] MEDS: Aspirin EC 81 mg TAB.EC (enteric coated) PO SCH (10:03)
[2021-03-15] MEDS: Metoprolol Tartrate 5 mg VIAL 5 ml VIAL (1 mg/ml) IV PRN (11:29)
[2021-03-15] MEDS ORDERED: Furosemide 20 mg/2 ml IV VIAL IV SLOW PU ONE (18:15)
[2021-03-16] MEDS: Enoxaparin 40 MG/0.4 ML SYR SUBCUT SCH (08:49)
[2021-03-16] MEDS: Aspirin EC 81 mg TAB.EC (enteric coated) PO SCH (08:50)
[2021-03-17] MEDS ORDERED: Lactated Ringers 500 ml BAG 500 ML IV ONE (05:31)
[2021-03-17 05:52] LABS: Hematocrit 32 % (42-52); Mean Corpuscular HGB Conc 34 g/dL (31-36); Mean Corpuscular Hemoglobin 30 pg (27-31); Mean Corpuscular Volume 89 fL (80-94); Mean Platelet Volume 8.7 fL (7.4-10.4); Platelet Count 102 10^3/uL (150-450); Red Blood Count 3.63 10^6 /uL (4.18-5.48); Red Cell Distribution Width 20 % (10-15); White Blood Count 5.1 10^3/uL (3.5-10.8)
[2021-03-17 06:09] LABS: Calcium 8.9 mg/dL (8.6-10.3); Magnesium 1.8 mg/dL (1.9-2.7); Potassium 4.4 mmol/L (3.5-5.0)
[2021-03-17] MEDS ORDERED: Magnesium Sulfate IV 3 GM in NS 0.9% 100 ml BAG 100 ML IVPB ONE (06:17)
[2021-03-17 07:20] LABS: ABS Eosinophils 0.1 10^3/ul (0-0.6); ABS Lymphocytes 1.1 10^3/ul (1.0-4.8); ABS Monocytes 0.3 10^3/ul (0-0.8); ABS Neutrophils 3.6 10^3/ul (1.5-7.7); Eosinophil % 2.6 %; Lymphocyte % 20.5 %; Nucleated Red Blood Cells % 0.1
[2021-03-17] MEDS: Aspirin EC 81 mg TAB.EC (enteric coated) PO SCH (07:43)
[2021-03-17] MEDS: Enoxaparin 40 MG/0.4 ML SYR SUBCUT SCH (07:43)
[2021-03-17 07:45] VITALS: BP 92/56
[2021-03-17] MEDS ORDERED: Digoxin IV 0.5 MG/2 ML AMP (0.25 MG/ML) IV SLOW PU ONE (09:12)
[2021-03-17] MEDS: Metoprolol Tartrate 5 mg VIAL 5 ml VIAL (1 mg/ml) IV PRN (11:14)
[2021-03-17] MEDS ORDERED: Amiodarone 400 mg TAB PO ONE (12:33)
[2021-03-17] MEDS ORDERED: Metoprolol Tartrate 5 mg VIAL 5 ml VIAL (1 mg/ml) IV ONE (13:54)
== END 2021-03-17 14:09 | disposition short-term general hospital (02) | DRG 308 ==
LOC: SUATTDRO 15:47 → MED 15:47
PROVIDERS: ADMIT Internal Medicine; ATTEND Internal Medicine

== ENCOUNTER 2021-03-17 15:25 | Inpatient (IN) ==
[2021-03-17] MEDS ORDERED: Albuterol HFA INHALER 8 gm MDI INH PRN (16:47)
[2021-03-17] MEDS: Metoprolol Tartrate 5 mg VIAL 5 ml VIAL (1 mg/ml) IV PRN (16:47)
[2021-03-17] MEDS ORDERED: Metoprolol Tartrate 5 mg VIAL 5 ml VIAL (1 mg/ml) IV PRN (16:47)
[2021-03-17] MEDS ORDERED: Enoxaparin 40 MG/0.4 ML SYR SUBCUT SCH (17:30)
[2021-03-18] MEDS: Metoprolol Tartrate 5 mg VIAL 5 ml VIAL (1 mg/ml) IV PRN (00:14)
[2021-03-18] MEDS ORDERED: Iodixanol (CONTRAST) 320 MG/ML 100 ML SDV IV ONE (01:48)
[2021-03-18] MEDS ORDERED: Digoxin IV 0.5 MG/2 ML AMP (0.25 MG/ML) IV SLOW PU ONE (07:52)
[2021-03-18] MEDS ORDERED: Digoxin IV 0.5 MG/2 ML AMP (0.25 MG/ML) ONE (08:05)
[2021-03-18] MEDS: Aspirin EC 81 mg TAB.EC (enteric coated) PO SCH (09:43)
[2021-03-18 09:46] LABS: Hematocrit 30 % (42-52); Hemoglobin 10.2 g/dL (14.0-18.0); Mean Corpuscular HGB Conc 34 g/dL (31-36); Mean Corpuscular Hemoglobin 30 pg (27-31); Mean Corpuscular Volume 89 fL (80-94); Mean Platelet Volume 8.6 fL (7.4-10.4); Platelet Count 125 10^3/uL (150-450); Red Blood Count 3.36 10^6 /uL (4.18-5.48); Red Cell Distribution Width 21 % (10-15); White Blood Count 4.4 10^3/uL (3.5-10.8)
[2021-03-18 10:09] LABS: Calcium 8.7 mg/dL (8.6-10.3); Potassium 4.4 mmol/L (3.5-5.0)
[2021-03-19 06:21] LABS: Albumin 2.4 g/dL (3.2-5.2); Albumin/Globulin Ratio 0.9 (1-3); Calcium 8.6 mg/dL (8.6-10.3); Globulin 2.6 g/dL (2-4); Potassium 4.2 mmol/L (3.5-5.0)
[2021-03-19 06:50] LABS: ABS Eosinophils 0.1 10^3/ul (0-0.6); ABS Lymphocytes 0.7 10^3/ul (1.0-4.8); ABS Monocytes 0.3 10^3/ul (0-0.8); Hematocrit 30 % (42-52); Hemoglobin 10.2 g/dL (14.0-18.0); Lymphocyte % 17.3 %; Mean Corpuscular HGB Conc 34 g/dL (31-36); Mean Corpuscular Hemoglobin 30 pg (27-31); Mean Corpuscular Volume 90 fL (80-94); Mean Platelet Volume 8.7 fL (7.4-10.4); Nucleated Red Blood Cells % 0.2; Platelet Count 130 10^3/uL (150-450); Red Blood Count 3.37 10^6 /uL (4.18-5.48); Red Cell Distribution Width 21 % (10-15); White Blood Count 4.1 10^3/uL (3.5-10.8)
[2021-03-19] MEDS: Aspirin EC 81 mg TAB.EC (enteric coated) PO SCH (09:57)
[2021-03-20 07:15] LABS: ABS Eosinophils 0.1 10^3/ul (0-0.6); ABS Lymphocytes 0.8 10^3/ul (1.0-4.8); ABS Monocytes 0.3 10^3/ul (0-0.8); ABS Neutrophils 3.2 10^3/ul (1.5-7.7); Eosinophil % 3.2 %; Hematocrit 27 % (42-52); Hemoglobin 9.3 g/dL (14.0-18.0); Lymphocyte % 18.9 %; Mean Corpuscular HGB Conc 34 g/dL (31-36); Mean Corpuscular Hemoglobin 30 pg (27-31); Mean Corpuscular Volume 89 fL (80-94); Mean Platelet Volume 8.2 fL (7.4-10.4); Platelet Count 145 10^3/uL (150-450); Red Blood Count 3.07 10^6 /uL (4.18-5.48); Red Cell Distribution Width 20 % (10-15); White Blood Count 4.5 10^3/uL (3.5-10.8)
[2021-03-20 07:31] LABS: Calcium 8.5 mg/dL (8.6-10.3); Magnesium 1.9 mg/dL (1.9-2.7); Potassium 4.1 mmol/L (3.5-5.0)
[2021-03-20] MEDS ORDERED: Magnesium Sulfate IV 1GM/100ML 1 GM/100 ML BAG IV ONE (08:09)
[2021-03-20] MEDS: Aspirin EC 81 mg TAB.EC (enteric coated) PO SCH (09:58)
[2021-03-21 05:54] LABS: Hematocrit 29 % (42-52); Hemoglobin 9.9 g/dL (14.0-18.0); Mean Corpuscular HGB Conc 34 g/dL (31-36); Mean Corpuscular Hemoglobin 30 pg (27-31); Mean Corpuscular Volume 88 fL (80-94); Mean Platelet Volume 8.2 fL (7.4-10.4); Platelet Count 163 10^3/uL (150-450); Red Cell Distribution Width 21 % (10-15); White Blood Count 4.9 10^3/uL (3.5-10.8)
[2021-03-21 06:08] LABS: Albumin 2.3 g/dL (3.2-5.2); Calcium 8.4 mg/dL (8.6-10.3); Globulin 2.4 g/dL (2-4); Potassium 4.1 mmol/L (3.5-5.0); Total Bilirubin 2.1 mg/dL (0.2-1.0); Total Protein 4.7 g/dL (6.4-8.9)
[2021-03-21 06:27] LABS: ABS Eosinophils 0.2 10^3/ul (0-0.6); ABS Monocytes 0.3 10^3/ul (0-0.8); ABS Neutrophils 3.4 10^3/ul (1.5-7.7); Lymphocyte % 20.5 %; Nucleated Red Blood Cells % 0.2
[2021-03-21] MEDS: Aspirin EC 81 mg TAB.EC (enteric coated) PO SCH (08:59)
[2021-03-22 06:40] LABS: Hematocrit 30 % (42-52); Hemoglobin 10.3 g/dL (14.0-18.0); Mean Corpuscular HGB Conc 35 g/dL (31-36); Mean Corpuscular Hemoglobin 31 pg (27-31); Mean Corpuscular Volume 89 fL (80-94); Platelet Count 187 10^3/uL (150-450); Red Blood Count 3.34 10^6 /uL (4.18-5.48); Red Cell Distribution Width 22 % (10-15); White Blood Count 5.4 10^3/uL (3.5-10.8)
[2021-03-22 06:53] LABS: Calcium 8.3 mg/dL (8.6-10.3); Potassium 4.1 mmol/L (3.5-5.0)
[2021-03-22 08:23] LABS: Anisocytosis 2+; Polychromasia 2+; Toxic Granulation 1+
[2021-03-22 08:24] LABS: ABS Eosinophils 0.1 10^3/ul (0-0.6); ABS Lymphocytes 1.1 10^3/ul (1.0-4.8); ABS Monocytes 0.3 10^3/ul (0-0.8); ABS Neutrophils 3.9 10^3/ul (1.5-7.7); Eosinophil % 1.4 %; Lymphocyte % 20.6 %; Nucleated Red Blood Cells % 0.2
[2021-03-22] MEDS: Aspirin EC 81 mg TAB.EC (enteric coated) PO SCH (09:37)
[2021-03-23] MEDS: Aspirin EC 81 mg TAB.EC (enteric coated) PO SCH (08:10)
[2021-03-23 14:15] VITALS: BP 86/47
[2021-03-24] MEDS ORDERED: Lenalidomide 10 mg CAP (NF) PO SCH (09:00)
== END 2021-03-23 14:43 | disposition swing bed (61) | DRG 308 ==
LOC: MED 15:25 → SUATTDRO 15:25 → MED 03-21 08:11
PROVIDERS: ADMIT Internal Medicine; ATTEND Hospitalist

== ENCOUNTER 2021-03-23 14:43 | Inpatient (IN) ==
[2021-03-23] MEDS ORDERED: Ondansetron 4 mg VIAL 2 MG/ML 2 ml VIAL IV PRN (14:58)
[2021-03-23] MEDS ORDERED: Albuterol HFA INHALER 8 gm MDI INH PRN (15:02)
[2021-03-24 06:43] LABS: Calcium 8.3 mg/dL (8.6-10.3); Magnesium 1.9 mg/dL (1.9-2.7); Potassium 4.1 mmol/L (3.5-5.0)
[2021-03-24 07:05] LABS: ABS Eosinophils 0.1 10^3/ul (0-0.6); ABS Lymphocytes 1.2 10^3/ul (1.0-4.8); ABS Monocytes 0.3 10^3/ul (0-0.8); ABS Neutrophils 4.2 10^3/ul (1.5-7.7); Eosinophil % 1.3 %; Hematocrit 30 % (42-52); Hemoglobin 9.6 g/dL (14.0-18.0); Lymphocyte % 20.8 %; Mean Corpuscular HGB Conc 33 g/dL (31-36); Mean Corpuscular Hemoglobin 30 pg (27-31); Mean Corpuscular Volume 92 fL (80-94); Nucleated Red Blood Cells % 0.3; Platelet Count 195 10^3/uL (150-450); Red Blood Count 3.19 10^6 /uL (4.18-5.48); Red Cell Distribution Width 22 % (10-15); White Blood Count 5.9 10^3/uL (3.5-10.8)
[2021-03-24] MEDS: Aspirin EC 81 mg TAB.EC (enteric coated) PO SCH (08:24)
[2021-03-24] MEDS: Saline NASAL SPRAY 0.65% BTL BOTH NARES PRN ×3 (09:59→21:19)
[2021-03-24] MEDS: Polyethylene Glycol 3350 17 GM PACKET PO PRN (10:00)
[2021-03-25] MEDS: Aspirin EC 81 mg TAB.EC (enteric coated) PO SCH (08:37)
[2021-03-26] MEDS ORDERED: LENALIDOMIDE 10 MG PO SCH (09:00)
[2021-03-26] MEDS: REVLIMID PO SCH (10:31)
[2021-03-26] MEDS: Aspirin EC 81 mg TAB.EC (enteric coated) PO SCH (10:31)
[2021-03-26 12:26] LABS: Rapid COVID-19 Molecular Undetected (Undetected)
[2021-03-26] MEDS: Saline NASAL SPRAY 0.65% BTL BOTH NARES PRN (20:07)
[2021-03-27] MEDS: Saline NASAL SPRAY 0.65% BTL BOTH NARES PRN ×2 (00:05→21:43)
[2021-03-27] MEDS: Aspirin EC 81 mg TAB.EC (enteric coated) PO SCH (10:17)
[2021-03-27] MEDS: REVLIMID PO SCH (10:21)
[2021-03-27 12:57] LABS: Hematocrit 27 % (42-52); Hemoglobin 8.9 g/dL (14.0-18.0); Mean Corpuscular HGB Conc 33 g/dL (31-36); Mean Corpuscular Hemoglobin 30 pg (27-31); Mean Corpuscular Volume 89 fL (80-94); Mean Platelet Volume 7.9 fL (7.4-10.4); Platelet Count 198 10^3/uL (150-450); Red Blood Count 2.97 10^6 /uL (4.18-5.48); Red Cell Distribution Width 22 % (10-15); White Blood Count 5.9 10^3/uL (3.5-10.8)
[2021-03-27 13:14] LABS: ALT 31 U/L (7-52); AST 21 U/L (13-39); Albumin 2.4 g/dL (3.2-5.2); Albumin/Globulin Ratio 0.9 (1-3); Alkaline Phosphatase 143 U/L (35-149); Anion Gap 4 mmol/L (2-11); Blood Urea Nitrogen 18 mg/dL (6-24); C Reactive Protein 71.93 mg/L (<8.01); CO2 Carbon Dioxide 32 mmol/L (22-32); Calcium 8.4 mg/dL (8.6-10.3); Chloride 102 mmol/L (101-111); Globulin 2.7 g/dL (2-4); Glucose 109 mg/dL (70-100); Potassium 3.8 mmol/L (3.5-5.0); Sodium 138 mmol/L (135-145); Total Protein 5.1 g/dL (6.4-8.9)
[2021-03-27 13:42] LABS: ABS Lymphocytes 1.6 10^3/ul (1.0-4.8); ABS Monocytes 0.4 10^3/ul (0-0.8); ABS Neutrophils 3.9 10^3/ul (1.5-7.7); Eosinophil % 0.8 %; Lymphocyte % 26.5 %; Nucleated Red Blood Cells % 0.2
[2021-03-27 13:51] LABS: Digoxin 0.9 ng/ml (0.8-2.0)
[2021-03-27 18:52] LABS: % Iron Saturation 42 % (15-55); Iron 76 ug/dL (50-212); Total Iron Binding Capacity 183 mcg/dL (250-450); Transferrin 131 mg/dL (203-362); Unsaturated Iron Binding < 168 ug/dL
[2021-03-27 19:14] LABS: Ferritin 1288.6 ng/mL (24-336)
[2021-03-27 19:18] LABS: Folate 9.74 ng/mL (5.90-24.80)
[2021-03-27 19:19] LABS: Vitamin B12 289 pg/mL (180-914)
[2021-03-27] MEDS: Amoxicillin/Clavul 875/125 TAB (Augmentin 875 tab) PO SCH (21:44)
[2021-03-28 05:04] LABS: Urine Appearance Cloudy; Urine Bilirubin Negative (Negative); Urine Blood Negative (Negative); Urine Color Yellow; Urine Glucose Negative (Negative); Urine Ketones Negative (Negative); Urine Nitrite Negative (Negative); Urine Protein Negative (Negative); Urine Specific Gravity 1.014 (1.002-1.030); Urine Urobilinogen Positive (Negative)
[2021-03-28 05:05] LABS: Urine Bacteria Absent (Absent); Urine Red Blood Cell 1+(3-5/hpf) (Absent); Urine Squamous Epithelial Cell Present (Absent); Urine White Blood Cell 3+(>20/hpf) (Absent)
[2021-03-28] MEDS: Aspirin EC 81 mg TAB.EC (enteric coated) PO SCH (11:56)
[2021-03-28] MEDS: Amoxicillin/Clavul 875/125 TAB (Augmentin 875 tab) PO SCH ×2 (11:56→19:32)
[2021-03-28] MEDS: REVLIMID PO SCH (11:59)
[2021-03-29] MEDS: Aspirin EC 81 mg TAB.EC (enteric coated) PO SCH (09:01)
[2021-03-29] MEDS: Amoxicillin/Clavul 875/125 TAB (Augmentin 875 tab) PO SCH ×2 (09:01→19:59)
[2021-03-29] MEDS: Saline NASAL SPRAY 0.65% BTL BOTH NARES PRN (09:04)
[2021-03-29] MEDS: REVLIMID PO SCH (09:05)
[2021-03-29] MEDS: Polyethylene Glycol 3350 17 GM PACKET PO PRN (09:09)
[2021-03-30 07:22] VITALS: BP 102/54
[2021-03-30] MEDS: Aspirin EC 81 mg TAB.EC (enteric coated) PO SCH (07:31)
[2021-03-30] MEDS: Amoxicillin/Clavul 875/125 TAB (Augmentin 875 tab) PO SCH (07:31)
[2021-03-30] MEDS: REVLIMID PO SCH (07:32)
== END 2021-03-30 14:30 | DRG 193 ==
LOC: SUATTDRO 14:43 → MED 14:43 → MCHPEDS 03-26 15:14
PROVIDERS: ADMIT Internal Medicine; ATTEND Internal Medicine